=== PATIENT | male | born 1985 | race Caucasian/White ===

== ENCOUNTER 2017-08-31 16:20 | Emergency (ER) | payer BC, SELFPAY ==
--- NOTE | 2017-08-31 16:38 | XR_ITS ---
XR hand RT min 3V HISTORY: Posttraumatic pain ITS.REASON: FELL OFF LADDER ORDERING PHYSICIAN: VIOLETA Guillen PATIENT AGE: 31 years COMPARISON: None FINDINGS: No fracture or dislocation. No lytic or blastic change. There is normal mineralization.. The joint spaces are well-preserved. No significant degenerative/arthritic changes. No erosive changes evident.. IMPRESSION: Negative, no acute finding
[2017-08-31 17:49] VITALS: BP 147/103; PULSE 72; RESP 18; TEMP 36.9; O2SAT 99; BMI 26.6
--- NOTE | 2017-08-31 18:01 | HMH.EDUTC ---
[facility] Disposition Clinical Impression: Contusion of right hand Qualifiers: Encounter type: initial encounter Qualified Code(s): S60.221A - Contusion of right hand, initial encounter Disposition: Home, Self-Care Condition on Discharge: Good Instructions: DI for Hand Injury Prescriptions: Naproxen [Naprosyn 500mg tablet] 500 mg PO BID #20 tab Forms: Work/School Release Time of Disposition: 18:06 Medical Decision Making - Medical Records Medical records reviewed: Yes: I reviewed the patient's medical records. Vital Signs: 08/31/17 17:49 Temperature 98.4 F Temperature Source Temporal Artery Scan Pulse Rate [Left Brachial] 72 Respiratory Rate 18 Blood Pressure [Left Arm] 147/103 Blood Pressure Mean [Left Arm] 117 Blood Pressure Source [Left Arm] Automatic Cuff Blood Pressure Position [Left Arm] Sitting 02 Sat by Pulse Oximetry 99 Oxygen Delivery Method Room Air - Radiology Data #1 Image(s): Hand Image Reviewed: Yes I have reviewed radiologist's interpretation Preliminary Findings: No Fracture Seen - Asim Inquiry Pt receiving controlled substance: No [facility] HPI - General Stated complaint: AO 1000 Right Hand Injury Time Seen by Provider: 08/31/17 17:55 Mode of Arrival: Ambulatory Source of Information: Patient Limitations: No Limitations Description of Symptoms (Recalled from Triage Doc. by RN): C/O RT HAND PAIN AND SWELLING AFTER FALLING OFF LADDER AT 1000 THIS AM HEENT Symptoms (Recalled from RN notes): No Resp Symptoms (Recalled from RN notes): No Skin Symptoms (Recalled from RN notes): No MS Symptoms (Recalled from RN notes): Yes (RT HAND PAIN AND SWELLING) Functional Status (Recalled from RN notes): N/A - History of Present Illness Provider Complaint: Patient fell off a ladder this morning around 10 am. As he was falling he struck the dorsal aspect of his right hand against the deck railing. Has pain and swelling in the 3rd knuckle with painful ROM Onset (ago): hour(s) (8) Location: right, upper extremity Severity: moderate Severity scale (1-10): 5 Relieving factors: none Exacerbating factors: none Associated symptoms: denies other symptoms Treatments prior to arrival: none - Related Data Previous Rx's Medication Instructions Recorded Naproxen [Naprosyn 500mg tablet] 500 mg PO BID #20 tab 08/31/17 Allergies Allergy/AdvReac Type Severity Reaction Status Date / Time morphine [MORPHINE] Allergy Mild Verified 08/31/17 17:53 - Worker's Comp Is this a Worker's Comp case?: No [facility] History I have reviewed the patient's past medical history: Yes Medical History: Denies:: Diabetes Mellitus Type 1, Diabetes Mellitus Type 2 Laterality Cases: Bilateral: Tonsillectomy Amputation: No Fractures: No - *Social History Smoking Status: Never smoker Alcohol Intake: never - Psychiatric History Expresses thoughts of harming self/others: None Suicide Plan Description: No Plan ROS Obtained: Yes All systems reviewed & no additional complaints - Musculoskeletal Musculoskeletal: Reports as per HPI, Reports joint pain Physical Exam - General General appearance: alert, in no apparent distress - Head Head exam: atraumatic, normocephalic - Eye Eye exam: Present: normal appearance, PERRL - ENT ENT exam: Present: normal exam - Neck Neck exam: Present: normal inspection - Chest Chest inspection: Present: normal inspection - Respiratory Respiratory exam: Present: normal lung sounds bilaterally, respiratory distress - Cardiovascular Cardiovascular exam: Present: regular rate, normal rhythm - Extremities Exam Extremities exam: Present: tenderness, joint swelling, other (right 3rd digit) - Neurological Exam Neurological exam: Present: alert, oriented X3
--- NOTE | 2017-08-31 18:05 | ED_ITS ---
[facility] Disposition Clinical Impression: Contusion of right hand Qualifiers: Encounter type: initial encounter Qualified Code(s): S60.221A - Contusion of right hand, initial encounter Disposition: Home, Self-Care Condition on Discharge: Good Instructions: DI for Hand Injury Prescriptions: Naproxen [Naprosyn 500mg tablet] 500 mg PO BID #20 tab Forms: Work/School Release Time of Disposition: 18:06 Medical Decision Making - Medical Records Medical records reviewed: Yes: I reviewed the patient's medical records. Vital Signs: 08/31/17 17:49 Temperature 98.4 F Temperature Source Temporal Artery Scan Pulse Rate [Left Brachial] 72 Respiratory Rate 18 Blood Pressure [Left Arm] 147/103 Blood Pressure Mean [Left Arm] 117 Blood Pressure Source [Left Arm] Automatic Cuff Blood Pressure Position [Left Arm] Sitting 02 Sat by Pulse Oximetry 99 Oxygen Delivery Method Room Air - Radiology Data #1 Image(s): Hand Image Reviewed: Yes I have reviewed radiologist's interpretation Preliminary Findings: No Fracture Seen - Asim Inquiry Pt receiving controlled substance: No [facility] HPI - General Stated complaint: AO 1000 Right Hand Injury Time Seen by Provider: 08/31/17 17:55 Mode of Arrival: Ambulatory Source of Information: Patient Limitations: No Limitations Description of Symptoms (Recalled from Triage Doc. by RN): C/O RT HAND PAIN AND SWELLING AFTER FALLING OFF LADDER AT 1000 THIS AM HEENT Symptoms (Recalled from RN notes): No Resp Symptoms (Recalled from RN notes): No Skin Symptoms (Recalled from RN notes): No MS Symptoms (Recalled from RN notes): Yes (RT HAND PAIN AND SWELLING) Functional Status (Recalled from RN notes): N/A - History of Present Illness Provider Complaint: Patient fell off a ladder this morning around 10 am. As he was falling he struck the dorsal aspect of his right hand against the deck railing. Has pain and swelling in the 3rd knuckle with painful ROM Onset (ago): hour(s) (8) Location: right, upper extremity Severity: moderate Severity scale (1-10): 5 Relieving factors: none Exacerbating factors: none Associated symptoms: denies other symptoms Treatments prior to arrival: none - Related Data Previous Rx's Medication Instructions Recorded Naproxen [Naprosyn 500mg tablet] 500 mg PO BID #20 tab 08/31/17 Allergies Allergy/AdvReac Type Severity Reaction Status Date / Time morphine [MORPHINE] Allergy Mild Verified 08/31/17 17:53 - Worker's Comp Is this a Worker's Comp case?: No [facility] History I have reviewed the patient's past medical history: Yes Medical History: Denies:: Diabetes Mellitus Type 1, Diabetes Mellitus Type 2 Laterality Cases: Bilateral: Tonsillectomy Amputation: No Fractures: No - *Social History Smoking Status: Never smoker Alcohol Intake: never - Psychiatric History Expresses thoughts of harming self/others: None Suicide Plan Description: No Plan ROS Obtained: Yes All systems reviewed & no additional complaints - Musculoskeletal Musculoskeletal: Reports as per HPI, Reports joint pain Physical Exam - General General appearance: alert, in no apparent distress - Head Head exam: atraumatic, normocephalic - Eye Eye exam: Present: normal appearance, PERRL - ENT ENT exam: Present: normal exam - Neck
[2017-08-31 18:32] VITALS: BP 147/103; PULSE 90; RESP 20; TEMP 36.9
== END 2017-08-31 18:32 | disposition home or self-care (01) ==
PROVIDERS: Emergency Provider Physician Assistant; Family Provider Family Medicine
DX: S60.221A Contusion of right hand, initial encounter (principal); W11.XXXA Fall on and from ladder, initial encounter
CPT/HCPCS: 73130; 99202

== ENCOUNTER 2018-01-13 20:34 | Emergency (ER) | payer BC, SELFPAY ==
[2018-01-13 20:35] VITALS: BP 145/58; PULSE 80; RESP 16; TEMP 36.8; O2SAT 96; BMI 26.6
--- NOTE | 2018-01-13 20:40 | CT_ITS ---
CT abdomen pelvis wo con CLINICAL INDICATION: Left flank pain, history kidney stones ITS.REASON: flank pain ORDERING PHYSICIAN: Anthony Arriaga MD PATIENT AGE: 32 years COMPARISON: 05/06/2017 TECHNIQUE: Axial images obtained with sagittal and one in the 22nd first use 21 Precontrast is a lucency with a and coronal reformats. All CT scans at the facility use one or more dose reduction, viz: automated exposure control; ma/kV adjustment per patient size (including targeted exams where dose is matched to indication; i.e. head); or iterative reconstruction technique. PROCEDURE: Oral Contrast: None IV Contrast: None . FINDINGS: Lung bases are clear. The liver, gallbladder, spleen, adrenal glands, and pancreas have an unremarkable unenhanced CT appearance. There are small bilateral renal calculi measuring 2 mm in the upper pole on the right and up to 4 mm in the mid polar region on the left. A small exophytic cyst projects off the lower pole the left kidney at 14 mm. No ureteral calculi evident. No hydronephrosis. No intestinal obstruction or free air. Unremarkable appendix. There is mild thickening of the wall of the ascending colon and rectosigmoid region. This may be due to nondistention versus mild colitis. There are a few diverticula evident but no evidence of diverticulitis. No acute bony anomalies. IMPRESSION: 1. Nonobstructing bilateral renal calculi. 2. Possible colitis
--- NOTE | 2018-01-13 20:40 | XR_ITS ---
XR chest 2V HISTORY: ITS.REASON: chest tightness ORDERING PHYSICIAN: Anthony Arriaga MD PATIENT AGE: 32 years COMPARISON: None FINDINGS: The cardiomediastinal silhouette and pulmonary vascularity are within normal limits. The lungs are clear without infiltrates, suspicious nodules, or pleural effusions. No acute bony abnormalities. IMPRESSION: Negative chest, no acute finding
[2018-01-13 20:51] LABS: Microscopic, Urine URINE MICROSCOPIC (MICROSCOPIC)
[2018-01-13 20:54] LABS: Basophils % 0.4 % (0.1-2.0); Eosinophils # 0.1 K/mm3 (0.0-0.4); Eosinophils % 2.1 % (0.1-12.0); Hematocrit 47.5 % (42.0-52.0); Hemoglobin 15.5 g/dL (14.1-18.0); Lymphocytes # 1.9 K/mm3 (0.7-4.5); Mean Corpuscular HGB Conc 32.6 g/dL (31.8-35.4); Mean Corpuscular Hemoglobin 28.3 pg (27.0-31.2); Mean Corpuscular Volume 86.8 fl (80-94); Mean Platelet Volume 9.8 fl (7.4-10.4); Monocytes # 0.3 K/mm3 (0.1-1.0); Monocytes % 5.9 % (1.7-9.3); Neutrophils # 3.3 K/mm3 (1.8-7.8); Neutrophils % 57.7 % (37.0-80.0); Platelet Count 237 K/mm3 (142-424); Red Blood Count 5.48 M/mm3 (4.60-6.20); Red Cell Distribution Width 12.8 % (11.5-17.5); White Blood Count 5.7 K/mm3 (4.8-10.8)
[2018-01-13 21:01] LABS: Appearance,Urine CLEAR (Clear); Bilirubin,Urine Negative (Negative); Blood, Urine Negative (Negative); Color,Urine YELLOW (Yellow); Glucose,Urine (UA) Negative (Negative); Ketones,Urine Negative (Negative); Leukocyte Esterase,Urine Negative (Negative); Nitrate,Urine Negative (Negative); Protein,Urine Negative (Negative); Specific Gravity, Urine <= 1.005 (1.005-1.030); Urobilinogen,Urine 0.2 EU/dl (0.2)
[2018-01-13 21:06] LABS: Anion Gap 11.7 mEq/L (5-15); Blood Urea Nitrogen 15 mg/dL (7-18); Calcium 8.9 mg/dL (8.5-10.1); Carbon Dioxide 29 mmol/L (21.0-32.0); Chloride 102 mmol/L (98-107); Creatinine Clearance Estimated 129 mL/min (0-300); Creatinine,Serum 1.19 mg/dL (0.70-1.30); Estimated Glomerular Filt Rate 70 ml/min (>60); GFR (African American) 85 ML/MIN (>60); Glucose 96 mg/dL (74-106); Potassium 3.7 mmoL/L (3.5-5.1); Sodium 139 mmol/L (136-145); Troponin I < 0.02 ng/ml (0.00-0.06)
[2018-01-13 21:34] LABS: Bacteria,Urine Trace /lpf
--- NOTE | 2018-01-13 21:58 | HMH.EDNVD ---
ED Disposition Clinical Impression: Colitis Disposition: Home, Self-Care Condition on Discharge: Good Instructions: DI for Colitis Additional Instructions: see pcp for follow up Prescriptions: predniSONE [Prednisone 20mg Tab] 20 mg PO BID #10 tab Referrals: Luke Villagran II [Primary Care Provider] - - Critical Care Critical Care Time: No Attestation: On 01/13/18, the high probability of a clinically significant, sudden or life threatening deterioration of the following system(s) required my full and direct attention, intervention and personal management. The time I documented below is in addition to time spent performing reported procedures but includes the following listed in this critical care notation. Medical Decision Making - Medical Records Medical records reviewed: Yes: I reviewed the patient's medical records. - Asim Inquiry Pt receiving controlled substance: No Vital Signs: 01/13/18 20:35 Temperature 98.2 F Temperature Source Oral Pulse Rate [Right Brachial] 80 Respiratory Rate 16 Blood Pressure [Right Arm] 145/58 Blood Pressure Mean [Right Arm] 87 02 Sat by Pulse Oximetry 96 - Lab Data Lab results reviewed: Yes: I reviewed the patient's lab results. Lab Results 01/13/18 20:42: WBC 5.7, RBC 5.48, Hgb 15.5, Hct 47.5, MCV 86.8, MCH 28.3, MCHC 32.6, RDW 12.8, Plt Count 237, MPV 9.8, Neut % (Auto) 57.7, Lymph % (Auto) 34.0, [place] % (Auto) 5.9, Eos % (Auto) 2.1, Baso % (Auto) 0.4, Neut # (Auto) 3.3, Lymph # (Auto) 1.9, [place] # (Auto) 0.3, Eos # (Auto) 0.1, Baso # (Auto) 0.0 01/13/18 20:42: Sodium 139, Potassium 3.7, Chloride 102, Carbon Dioxide 29, Anion Gap 11.7, BUN 15, Creatinine 1.19, Estimated Creat Clear 129, Estimated GFR 70, Est GFR ( Amer) 85, Glucose 96, Calcium 8.9, Troponin I < 0.02 01/13/18 20:45: Urine Color Yellow, Urine Appearance Clear, Urine pH 6.0, Ur Specific [place] <= 1.005, Urine Protein Negative, Urine Glucose (UA) Negative, Urine Ketones Negative, Urine Blood Negative, Urine Nitrate Negative, Urine Bilirubin Negative, Urine Urobilinogen 0.2, Ur Leukocyte Esterase Negative, Urine RBC None, Urine WBC None, Ur Squamous Epith Cells None, Urine Bacteria Trace Result diagrams: 01/13/18 20:42 01/13/18 20:42 Orders (Tests/Meds): ED MEDICATIONS Discontinued Medications Generic Name Dose Route Start Last Admin Trade Name Huong PRN Reason Stop Dose Admin Acetaminophen/Codeine Phosphate 1 shahnaz 01/13/18 21:55 Acetaminophen W/Codeine #3 Take Home Pack (6) PO 01/13/18 21:56 ONCE ONE Sodium Chloride 1,000 mls @ 999 mls/hr 01/13/18 20:45 01/13/18 20:49 Sod Chlor 0.9% 1000ml Bag IV 01/13/18 21:45 999 mls/hr .Q1H1M BRITTANI Administration Ketorolac Tromethamine 30 mg 01/13/18 20:40 01/13/18 20:49 Toradol 30mg/Ml Vial IV 01/13/18 20:41 30 mg ONCE ONE Administration Methylprednisolone Sodium Succinate 125 mg 01/13/18 21:55 Solu-Medrol 125mg/2ml Vial IV 01/13/18 21:56 ONCE ONE Ondansetron HCl 4 mg 01/13/18 20:40 01/13/18 20:49 Zofran 4mg/2ml Vial IV 01/13/18 20:41 4 mg ONCE ONE Administration ORDERS Category Date Time Status CT abdomen pelvis wo con Stat Cat Scan 01/13/18 20:40 Taken Chest XR 2 view (NOT portable) [XR chest 2V] Stat Exams 01/13/18 20:40 Taken ECG Request by /Nse Stat Y 01/13/18 20:40 Ordered - Radiology Data #1 Image(s): Chest Image Reviewed: Yes I reviewed the patient's radiology image Preliminary Findings: Normal/NAD - CT Data CT Scan: Abdomen, Pelvis Time Received: 22:[address] Reviewed: Yes: I have viewed the radiologist's interpretation Preliminary Findings: Abnormal (colitis) - ECG Data Tracing #1 I reviewed this ECG and interpreted as documented below: ECG normal with no acute: arrhythmias, ischemia, con
--- NOTE | 2018-01-13 22:01 | ED_ITS ---
ED Disposition Clinical Impression: Colitis Disposition: Home, Self-Care Condition on Discharge: Good Instructions: DI for Colitis Additional Instructions: see pcp for follow up Prescriptions: predniSONE [Prednisone 20mg Tab] 20 mg PO BID #10 tab Referrals: Luke Villagran II [Primary Care Provider] - - Critical Care Critical Care Time: No Attestation: On 01/13/18, the high probability of a clinically significant, sudden or life threatening deterioration of the following system(s) required my full and direct attention, intervention and personal management. The time I documented below is in addition to time spent performing reported procedures but includes the following listed in this critical care notation. Medical Decision Making - Medical Records Medical records reviewed: Yes: I reviewed the patient's medical records. - Asim Inquiry Pt receiving controlled substance: No Vital Signs: 01/13/18 20:35 Temperature 98.2 F Temperature Source Oral Pulse Rate [Right Brachial] 80 Respiratory Rate 16 Blood Pressure [Right Arm] 145/58 Blood Pressure Mean [Right Arm] 87 02 Sat by Pulse Oximetry 96 - Lab Data Lab results reviewed: Yes: I reviewed the patient's lab results. Lab Results 01/13/18 20:42: WBC 5.7, RBC 5.48, Hgb 15.5, Hct 47.5, MCV 86.8, MCH 28.3, MCHC 32.6, RDW 12.8, Plt Count 237, MPV 9.8, Neut % (Auto) 57.7, Lymph % (Auto) 34.0 , [place] % (Auto) 5.9, Eos % (Auto) 2.1, Baso % (Auto) 0.4, Neut # (Auto) 3.3, Lymph # (Auto) 1.9, [place] # (Auto) 0.3, Eos # (Auto) 0.1, Baso # (Auto) 0.0 01/13/18 20:42: Sodium 139, Potassium 3.7, Chloride 102, Carbon Dioxide 29, Anion Gap 11.7, BUN 15, Creatinine 1.19, Estimated Creat Clear 129, Estimated GFR 70, Est GFR ( Amer) 85, Glucose 96, Calcium 8.9, Troponin I < 0.02 01/13/18 20:45: Urine Color Yellow, Urine Appearance Clear, Urine pH 6.0, Ur Specific [place] <= 1.005, Urine Protein Negative, Urine Glucose (UA) Negative, Urine Ketones Negative, Urine Blood Negative, Urine Nitrate Negative, Urine Bilirubin Negative, Urine Urobilinogen 0.2, Ur Leukocyte Esterase Negative, Urine RBC None, Urine WBC None, Ur Squamous Epith Cells None, Urine Bacteria Trace Result diagrams: 01/13/18 20:42 01/13/18 20:42 Orders (Tests/Meds): ED MEDICATIONS Discontinued Medications Generic Name Dose Route Start Last Admin Trade Name Huong PRN Reason Stop Dose Admin Acetaminophen/Codeine Phosphate 1 shahnaz 01/13/18 21:55 Acetaminophen W/Codeine #3 Take Home Pack (6) PO 01/13/18 21:56 ONCE ONE Sodium Chloride 1,000 mls @ 999 mls/hr 01/13/18 20:45 01/13/18 20:49 Sod Chlor 0.9% 1000ml Bag IV 01/13/18 21:45 999 mls/hr .Q1H1M BRITTANI Administration Ketorolac Tromethamine 30 mg 01/13/18 20:40 01/13/18 20:49 Toradol 30mg/Ml Vial IV 01/13/18 20:41 30 mg ONCE ONE Administration Methylprednisolone Sodium Succinate 125 mg 01/13/18 21:55 Solu-Medrol 125mg/2ml Vial IV 01/13/18 21:56 ONCE ONE Ondansetron HCl 4 mg 01/13/18 20:40 01/13/18 20:49 Zofran 4mg/2ml Vial IV 01/13/18 20:41 4 mg ONC
[2018-01-13 22:11] VITALS: BP 143/89; PULSE 69; RESP 20; TEMP 37; O2SAT 100
[2018-01-13 22:17] LABS: C-Reactive Protein < 0.2 mg/L (0.0-0.9)
[2018-01-13 22:47] LABS: Erythrocyte Sedimentation Rate 8 mm/hr (0-15)
== END 2018-01-13 22:12 | disposition home or self-care (01) ==
PROVIDERS: Emergency Provider Emergency Medicine; Family Provider Family Medicine; PCP Family Medicine
DX: K51.50 Left sided colitis without complications (principal)
CPT/HCPCS: 71046; 74176; 80048; 81001; 84484; 85025; 85651; 86140; 93005; 96365; 96375; 99283; J2405

== ENCOUNTER 2020-03-06 02:03 | Emergency (ER) | payer BC, SELFPAY ==
[2020-03-06 02:07] VITALS: BP 162/114; PULSE 109; RESP 18; TEMP 36.8; O2SAT 99; BMI 26.6
--- NOTE | 2020-03-06 02:34 | PC.NURSE ---
oral contrast completed. rad notified
[2020-03-06 02:38] LABS: Basophils # 0.1 K/mm3 (0-0.2); Basophils % 0.6 % (0.1-2.0); Eosinophils # 0.3 K/mm3 (0.0-0.4); Eosinophils % 3.4 % (0.1-12.0); Hematocrit 46.1 % (42.0-52.0); Hemoglobin 16.3 g/dL (14.1-18.0); Lymphocytes # 2.9 K/mm3 (0.7-4.5); Lymphocytes % 39.1 % (10-50); Mean Corpuscular HGB Conc 35.3 g/dL (31.8-35.4); Mean Corpuscular Hemoglobin 30.8 pg (27.0-31.2); Mean Corpuscular Volume 87.3 fl (80-94); Mean Platelet Volume 9.9 fl (7.4-10.4); Monocytes # 0.4 K/mm3 (0.1-1.0); Monocytes % 5.3 % (1.7-9.3); Neutrophils # 3.8 K/mm3 (1.8-7.8); Neutrophils % 51.5 % (37.0-80.0); Platelet Count 272 K/mm3 (142-424); Red Blood Count 5.28 M/mm3 (4.60-6.20); White Blood Count 7.3 K/mm3 (4.8-10.8)
[2020-03-06 02:42] LABS: Alanine Aminotransferase 41 U/L (12-78); Albumin Level 4.5 g/dl (3.5-5.0); Albumin/Globulin Ratio 1.4 (1.1-1.8); Alkaline Phosphatase 96 U/L (38-126); Amylase 72 U/L (30-110); Anion Gap 14.1 mEq/L (5-15); Aspartate Amino Transferase 41 U/L (17-59); Bilirubin,Total 0.4 mg/dl (0.2-1.3); Blood Urea Nitrogen 13 mg/dl (9-20); Calcium 9.6 mg/dl (8.4-10.2); Carbon Dioxide 30 mmol/L (22.0-30.0); Chloride 98 mmol/L (98-107); Creatinine Clearance Estimated 151 mL/min (50-200); Estimated Glomerular Filt Rate 85 ml/min (>60); GFR (African American) 102 ML/MIN (>60); Globulin 3.3 g/dL (1.3-3.2); Glucose 116 mg/dl (74-100); Lipase 147 U/L (23-300); Potassium 4.1 mmoL/L (3.5-5.1); Sodium 138 mmol/L (136-145); Total Protein,Serum 7.8 g/dl (6.3-8.2)
[2020-03-06 02:45] VITALS: BP 150/74; PULSE 71; RESP 19; O2SAT 98
[2020-03-06 02:48] LABS: C-Reactive Protein 1.8 mg/L (0-4)
[2020-03-06 03:04] LABS: Erythrocyte Sedimentation Rate 1 mm/hr (0-15)
[2020-03-06 03:25] VITALS: BP 131/73; PULSE 74; RESP 15; O2SAT 96
--- NOTE | 2020-03-06 03:31 | CT_ITS ---
PROCEDURE: CT ABDOMEN PELVIS W CON CLINICAL INDICATION: abd pain and nausea with diarrhea COMPARISON: CT ABDW CT abdomen w con from 04/23/2018 TECHNIQUE: IV Contrast: 75ML OPTIRAY 350 Oral Contrast 20ml Gastroview Axial images obtained with sagittal and coronal reformats. All CT scans at the facility use one or more dose reduction, viz: automated exposure control, ma/kV adjustment per patient size (including targeted exams where dose is matched to indication, i.e. head), or iterative reconstruction technique. FINDINGS: Lower thorax: The lower lung carrasco are clear and there is no pleural fluid. ABDOMEN: Liver: No masses or biliary dilatation. Gallbladder: The gallbladder is partially contracted but there are no obvious gallstones or sludge. Pancreas: No masses or peripancreatic fluid collections. Spleen: unremarkable Adrenals: unremarkable Kidneys/ureters: The kidneys are normal in size and show symmetrical function. There is a small nonobstructing calculus upper pole left kidney. There is a tiny benign-appearing cortical cyst lower pole left kidney. ABDOMEN & PELVIS: Stomach bowel: The stomach is prominently distended with ingested food particles and air. The duodenal sweep is normal. The contrast filled loops of small bowel appear normal. The appendix is well-visualized and is partially air-filled. There is a moderate amount stool and gas seen throughout the colon there is minimal scattered diverticulosis of the lower descending and sigmoid colon but there is no diverticulitis. Peritoneum: No abnormal fluid collections. No obvious inflammatory changes. No free air. Lymph nodes: No enlarged lymph nodes apparent. Vasculature: No evidence of abdominal aortic aneurysm. No retroperitoneal hemorrhage evident. Bones: No acute fracture PELVIS: Reproductive: unremarkable Bladder: The urinary bladder is decompressed, the prostate is normal. Appendix: Normal IMPRESSION: No acute abdominal or pelvic pathology identified, mild diffuse diverticulosis lower descending and sigmoid colon without diverticulitis Dictated by: Dr. Raymundo Bermudez MD 03/06/2020 10:23 Dr. Raymundo Bermudez MD in [place] 03/06/2020 10:23
--- NOTE | 2020-03-06 03:47 | PC.NURSE ---
to ct at this time
[2020-03-06 03:48] LABS: Microscopic, Urine URINE MICROSCOPIC (MICROSCOPIC)
[2020-03-06 03:50] LABS: Appearance,Urine CLEAR (Clear); Bilirubin,Urine Negative (Negative); Blood, Urine Negative (Negative); Color,Urine YELLOW (Yellow); Glucose,Urine (UA) Negative (Negative); Ketones,Urine Negative (Negative); Leukocyte Esterase,Urine Negative (Negative); Nitrate,Urine Negative (Negative); Protein,Urine Negative (Negative); Specific Gravity, Urine >= 1.030 (1.005-1.030); Urobilinogen,Urine 0.2 EU/dl (0.2)
[2020-03-06 04:08] VITALS: BP 143/97; PULSE 83; RESP 19; O2SAT 98
[2020-03-06 04:12] LABS: Amorphous Sediment,Urine Trace /lpf
--- NOTE | 2020-03-06 04:23 | HMH.EDNVD ---
ED Disposition Clinical Impression: Abdominal pain Qualifiers: Abdominal location: generalized Qualified Code(s): R10.84 - Generalized abdominal pain Disposition: Home, Self-Care Condition on Discharge: Good Instructions: DI for Acute Abdomen Additional Instructions: call pcp for follow up Referrals: Luke Villagran II [Primary Care Provider] - - Critical Care Critical Care Time: No Attestation: On 03/06/20, the high probability of a clinically significant, sudden or life threatening deterioration of the following system(s) required my full and direct attention, intervention and personal management. The time I documented below is in addition to time spent performing reported procedures but includes the following listed in this critical care notation. Medical Decision Making - Medical Records Medical records reviewed: Yes: I reviewed the patient's medical records. - Asim Inquiry Pt receiving controlled substance: No Vital Signs: 03/06/20 02:07 03/06/20 02:45 03/06/20 03:25 Temperature 98.3 F Temperature Source Oral Pulse Rate [Left] 109 H 71 74 Respiratory Rate 18 19 15 Blood Pressure [Right Arm] 162/114 H 150/74 H 131/73 Blood Pressure Mean [Right Arm] 130 99 92 Blood Pressure Source [Right Arm] Automatic Cuff Automatic Cuff Blood Pressure Position [Right Arm] Supine Sitting Sitting 02 Sat by Pulse Oximetry 99 98 96 Oxygen Delivery Method Room Air 03/06/20 04:08 03/06/20 04:48 Temperature 98.2 F Temperature Source Oral Pulse Rate [Left] 83 89 Respiratory Rate 19 18 Blood Pressure [Right Arm] 143/97 H 131/93 H Blood Pressure Mean [Right Arm] 112 105 Blood Pressure Source [Right Arm] Blood Pressure Position [Right Arm] 02 Sat by Pulse Oximetry 98 96 Oxygen Delivery Method Room Air Room Air - Lab Data Lab results reviewed: Yes: I reviewed the patient's lab results. Lab Results 03/06/20 02:14: WBC 7.3, RBC 5.28, Hgb 16.3, Hct 46.1, MCV 87.3, MCH 30.8, MCHC 35.3, RDW 13.0, Plt Count 272, MPV 9.9, Neut % (Auto) 51.5, Lymph % (Auto) 39.1, [place] % (Auto) 5.3, Eos % (Auto) 3.4, Baso % (Auto) 0.6, Neut # (Auto) 3.8, Lymph # (Auto) 2.9, [place] # (Auto) 0.4, Eos # (Auto) 0.3, Baso # (Auto) 0.1, ESR 1 03/06/20 02:14: Sodium 138, Potassium 4.1, Chloride 98, Carbon Dioxide 30, Anion Gap 14.1, BUN 13, Creatinine 1.00, Estimated Creat Clear 151, Estimated GFR 85, Est GFR ( Amer) 102, Glucose 116 H, Calcium 9.6, Total Bilirubin 0.4, AST 41, ALT 41, Alkaline Phosphatase 96, C-Reactive Protein 1.8, Total Protein 7.8, Albumin 4.5, Globulin 3.3 H, Albumin/Globulin Ratio 1.4, Amylase 72, Lipase 147 03/06/20 03:38: Urine Color Yellow, Urine Appearance Clear, Urine pH 6.0, Ur Specific Emerson >= 1.030, Urine Protein Negative, Urine Glucose (UA) Negative, Urine Ketones Negative, Urine Blood Negative, Urine Nitrate Negative, Urine Bilirubin Negative, Urine Urobilinogen 0.2, Ur Leukocyte Esterase Negative, Amorphous Sediment Trace Result diagrams: 03/06/20 02:14 03/06/20 02:14 Orders (Tests/Meds): ED MEDICATIONS Generic Name Dose Route Start Last Admin Trade Name Freq PRN Reason Stop Dose Admin Sodium Chloride 1,000 mls @ 999 mls/hr 03/06/20 02:45 03/06/20 02:36 Sod Chlor 0.9% 1000ml Bag IV 03/06/20 03:45 999 mls/hr .Q1H1M BRITTANI Administration Sodium Chloride 8 ml 03/06/20 04:39 Sodium Chloride 0.9% 10ml Vial IV 04/05/20 04:38 NEEDED PRN dilute pepcid Sodium Chloride 8 ml 03/06/20 04:40 Sodium Chloride 0.9% 10ml Vial IV 04/05/20 04:39 NEEDED PRN dilute pepcid Discontinued Medications Generic Name Dose Route Start Last Admin Trade Name Freq PRN Reason Stop Dose Admin Diatrizoate Meglum/Diatrizoate Sod 30 ml 03/06/20 02:33 03/06/20 02:34 Gastrografin 66%-10% 30ml PO 03/06/20 02:34 30 ml ONCE ONE Administration Famotidine 20 mg 03/06/20 04:39 Pepcid 20mg/2ml Vial IV 03/06/20 04:40 ONCE ONE Famotidine 20 mg 08
[2020-03-06 04:48] VITALS: BP 131/93; PULSE 89; RESP 18; TEMP 36.8; O2SAT 96
[2020-03-06 05:00] VITALS: BP 125/87; PULSE 73; RESP 15; TEMP 36.7; O2SAT 95
== END 2020-03-06 05:05 | disposition home or self-care (01) ==
PROVIDERS: Emergency Provider Emergency Medicine; PCP Family Medicine
DX: R10.84 Generalized abdominal pain (principal); K50.90 Crohn's disease, unspecified, without complications; Z90.09 Acquired absence of other part of head and neck
CPT/HCPCS: 74177; 80053; 81001; 82150; 83690; 85025; 85651; 86140; 96365; 96375; 99284; Q9967

== ENCOUNTER 2020-07-28 10:16 | Emergency (ER) | payer BC, SELFPAY ==
[2020-07-28 10:17] VITALS: BP 145/95; PULSE 95; RESP 14; TEMP 36.6; O2SAT 98; BMI 27.7
--- NOTE | 2020-07-28 10:43 | XR_ITS ---
PROCEDURE: XR CHEST 2V CLINICAL HISTORY: cough COMPARISON: CR CXR2V XR chest 2V from 01/13/2018 FINDINGS: The cardiomediastinal silhouette and pulmonary vascularity are within normal limits. The lungs are clear without infiltrates, suspicious nodules, or pleural effusions. No acute bony abnormalities. IMPRESSION: No acute findings. Dictated by: Nicholas Mas MD 07/28/2020 11:11 Nicholas Mas MD in [place] 07/28/2020 11:11
--- NOTE | 2020-07-28 11:02 | HMH.EDUTC ---
[facility] [place] Clinical Impression: Viral syndrome, Bronchitis, Exposure to COVID-19 virus Disposition: Home, Self-Care Condition on Discharge: Good Instructions: DI for COVID-19 (Suspected or Confirmed ), Preventing the Spread of Coronavirus Discharge Instructions Additional Instructions: Drink plenty of fluids. Take tylenol for pain or fever. Return if you begin to have difficulty breathing. Follow up with your regular doctor. GO TO THE ER FOR ANY WORSENING SYMPTOMS Prescriptions: Albuterol Sulfate [Albuterol Sulfate Hfa] 2 puffs IH Q6HP PRN 30 Days #1 [email or web address] PRN Reason: Shortness Of Breath Transmission Status: Received by [facility] Benzonatate [Tessalon Perle 100mg Cap] 100 mg PO TIDP PRN #30 cap PRN Reason: Cough Transmission Status: [facility] Azithromycin [Z-Ceasar 250mg Tab*] 250 mg PO UD DOSE PK #6 tab Transmission Status: [facility] Referrals: Luke Villagran II [Primary Care Provider] - Forms: Work/School Release Time of Disposition: 11:05 Medical Decision Making - Medical Records Medical records reviewed: No: I reviewed the patient's medical records. - Asim Inquiry Pt receiving controlled substance: No Vital Signs: 07/28/20 10:17 07/28/20 11:11 Temperature 97.9 F 97.9 F Temperature Source Oral Oral Pulse Rate 95 H Pulse Rate [Right] 95 H Respiratory Rate 14 14 Blood Pressure 145/95 H Blood Pressure [Right Arm] 145/95 H Blood Pressure Mean [Right Arm] 111 02 Sat by Pulse Oximetry 98 - Lab Data Lab Results 07/28/20 11:27: Influenza Type A Ag Negative, Influenza Type B Ag Negative [facility] [place] - General Stated complaint: cough, chills, drainage, loss of taste Time Seen by Provider: 07/28/20 10:20 Mode of Arrival: Ambulatory Source of Information: Patient Description of Symptoms (Recalled from Triage Doc. by RN): pt c/o coughing, vomitting, chills X 3 days HEENT Symptoms (Recalled from RN notes): Yes Resp Symptoms (Recalled from RN notes): Yes Skin Symptoms (Recalled from RN notes): No MS Symptoms (Recalled from RN notes): No Functional Status (Recalled from RN notes): wnl - History of Present Illness Provider Complaint: He states that for the past 2 days he has had cough, body aches, feeling very bad, and low grade fever. - Related Data Home Medications Medication Instructions Recorded Confirmed Omeprazole Magnesium [Prilosec Otc 20 mg PO DAILY 03/06/20 03/06/20 20mg Tab] Previous Rx's Medication Instructions Recorded Albuterol Sulfate [Albuterol 2 puffs IH Q6HP PRN 30 Days #1 07/28/20 Sulfate Hfa] hfa.aer.ad Azithromycin [Z-Ceasar 250mg Tab*] 250 mg PO UD DOSE PK #6 tab 07/28/20 Benzonatate [Tessalon Perle 100mg 100 mg PO TIDP PRN #30 cap 07/28/20 Cap] Allergies Allergy/AdvReac Type Severity Reaction Status Date / Time morphine [MORPHINE] Allergy Mild Verified 07/28/20 10:43 - Worker's Comp Is this a Worker's Comp case?: No Is this an H Worker's Comp?: No Is this a [place] Worker's Comp?: No [facility] History - Hepatitis A Screen Drug use history?: No High risk sexual behaviors?: No History of sexually transmitted infection?: No Currently employed?: No Childcare worker?: No Do you have indoor plumbing?: Yes Do you have electricity?: Yes Attestation statement:: This patient has been screened for Hepatitis A risk factors. I have reviewed the patient's past medical history: Yes Medical History: Denies:: Cancer, Diabetes Mellitus Type 1, Diabetes Mellitus Type 2, Internal Pacemaker, MRSA Other Medical History: Reports: Other (Crohn's disease) Laterality Cases: Bilateral: Tonsillectomy, Other Other Surgeries: No: Pacemaker Amputation: No Fractures: No - Social History Smoking Status: Never smoker Tobacco Type: smokeless tobacco # Packs/Day (cigarettes): 0 Alcohol Intake: never Occupational Status: unemployed Housing: house Household Members:
[2020-07-28 11:11] VITALS: BP 145/95; PULSE 95; RESP 14; TEMP 36.6; O2SAT 98
[2020-07-28 11:29] LABS: UTC Influenza A Antigen Negative (Negative); UTC Influenza B Antigen Negative (Negative)
--- NOTE | 2020-07-28 16:54 | PC.NURSE ---
unable to reach patient for positive covid results
--- NOTE | 2020-07-28 21:02 | PC.NURSE ---
PATIENT NOTIFIED OF POSITIVE COVID RESULTS
== END 2020-07-28 11:14 | disposition home or self-care (01) ==
PROVIDERS: Emergency Provider Nurse Practitioner Family; PCP Family Medicine
DX: U07.1 COVID-19 (principal); Z88.5 Allergy status to narcotic agent
CPT/HCPCS: 71046; 87804; 99202; G0463; U0003

== ENCOUNTER 2020-09-14 20:18 | Emergency (ER) | payer BC, SELFPAY ==
--- NOTE | 2020-09-14 20:25 | XR_ITS ---
PROCEDURE: XR HAND RT MIN 3V CLINICAL INDICATION: FALL Posttraumatic pain COMPARISON: CR [id number] XR hand RT min 3V from 08/31/2017 FINDINGS: No fracture or dislocation. No lytic or blastic change. There is normal mineralization. The joint spaces are well-preserved. No significant degenerative/arthritic changes. No erosive changes evident. Other findings:None. IMPRESSION: No acute findings. Dictated by: Nicholas Mas MD 09/15/2020 05:06 Nicholas Mas MD in [place] 09/15/2020 05:06
[2020-09-14 20:31] VITALS: BP 194/110; RESP 16; TEMP 36.6; O2SAT 99; BMI 27.7
--- NOTE | 2020-09-14 20:36 | HMH.EDUTC ---
[facility] [place] Clinical Impression: Finger sprain Qualifiers: Encounter type: initial encounter Finger: middle finger Sprain of finger site: unspecified site Laterality: right Qualified Code(s): S63.612A - Unspecified sprain of right middle finger, initial encounter Disposition: Home, Self-Care Condition on Discharge: Good Instructions: Finger Sprain, DI for Finger Sprain, How To Perform RICE (Rest, Ice, Compress, Elevate), How to Timo Tape Additional Instructions: *RICE, Rest the extremity, Ice 15-20 minutes 3-4 times daily, Compress- wear the lee wrap as discussed as much as possible to help reduce swelling and pain, Elevate the extremity when at rest *Lee wrap/finger splint/timo tape is for support and help control swelling, use it except in the shower. Be sure that is not to tight but not to loose either *Elevate when resting *Ibuprofen every 6-8 hours as needed for pain an inflammation as directed on package. If need something more can take Tylenol in between doses of Ibuprofen to help Immediately follow up with your family doctor for new or worsening of symptoms, or no noticeable improvement over the next 3-5 days Call back to the [facility] tomorrow for the official Radiology reading of your xray Return if needed Follow up with your Family doctor for re evaluation of your blood pressure where it was elevated in the [facility] Straight to ER if any life threatening symptoms Referrals: PCP,No [Primary Care Provider] - As needed Dong Mace MD [Staff Physician] - Time of Disposition: 20:46 Medical Decision Making - Asim Inquiry Pt receiving controlled substance: No Asim was queried for this patient: No Vital Signs: 09/14/20 20:31 Temperature 98 F Temperature Source Tympanic Respiratory Rate 16 Blood Pressure [Right Arm] 194/110 H Blood Pressure Mean [Right Arm] 138 Blood Pressure Source [Right Arm] Automatic Cuff Blood Pressure Position [Right Arm] Sitting 02 Sat by Pulse Oximetry 99 Oxygen Delivery Method Room Air Orders (Tests/Meds): ORDERS Category Date Time Status XR hand RT min 3V Stat Exams 09/14/20 20:25 Ordered - Radiology Data #1 Image(s): Hand Image Reviewed: Yes I reviewed the patient's radiology image Preliminary Findings: No Fracture Seen Will splint finger and timo tape and have him call back for official reading of his xray Medical Decision Narrative: Discussed elevated blood pressure with patient and he said PCP has been watching it Patient states that he is not having any chest pain, no headache, no blurry vision and would follow up with PCP tomorrow for further evaluation [facility] [place] HPI - General Stated complaint: MICHEL Darby fell off roof 8ft injured R Hand Time Seen by Provider: 09/14/20 20:36 Mode of Arrival: Ambulatory Source of Information: Patient Limitations: No Limitations Description of Symptoms (Recalled from Triage Doc. by RN): PT FELL ON A PILE OF CINDER BLOCKS OFF A ROOF ON HIS RIGHT HAND INJURING HIS MIDDLE FINGER. IT IS SWOLLEN AND PAINFUL 5/10 HEENT Symptoms (Recalled from RN notes): No Resp Symptoms (Recalled from RN notes): No Skin Symptoms (Recalled from RN notes): No MS Symptoms (Recalled from RN notes): Yes (R HAND PAIN MOSTLY IN THE MIDDLE FINGER) Functional Status (Recalled from RN notes): NA - History of Present Illness Provider Complaint: Patient states that a couple days ago he was sliding off a roof and went to catch himself and hit his right middle finger on some cender blocks that was sitting there States that ever since he has been having some swelling and hurts when he bends it States that he is suppose to start a new job tomorrow and wanted to get it checked before he started that job - Related Data Home Medications Medication Instructions Recorded Confirmed Omeprazole Magnesium [Prilosec Otc 20 mg PO DAILY 03/06/20 03/06/20 20mg Tab] Previous Rx's Medication Instructions Recorded Albuterol Sulfate [Albuterol 2 puffs IH Q6HP OR
[2020-09-14 20:45] VITALS: BP 145/100; PULSE 106; RESP 16; TEMP 36.6
== END 2020-09-14 20:53 | disposition home or self-care (01) ==
PROVIDERS: Emergency Provider Nurse Practitioner
DX: S63.612A Unspecified sprain of right middle finger, initial encounter (principal); W17.89XA Other fall from one level to another, initial encounter; W22.8XXA Striking against or struck by other objects, initial encounter; Y92.89 Other specified places as the place of occurrence of the external cause; F17.290 Nicotine dependence, other tobacco product, uncomplicated; Z88.5 Allergy status to narcotic agent
CPT/HCPCS: 73130; 99202; G0463

== ENCOUNTER 2020-12-27 17:58 | Emergency (ER) | payer BC, SELFPAY ==
[2020-12-27 18:40] VITALS: BP 135/94; PULSE 78; RESP 20; TEMP 36.7; O2SAT 97; BMI 25.4
[2020-12-27 18:53] LABS: Apearance,Urine Clear (Clear); Color,Urine Dark Yellow (Yellow); Protein,Urine 1+ (Negative)
[2020-12-27 18:54] LABS: Bilirubin,Urine Negative (Negative); Blood, Urine Negative (Negative); Glucose,Urine (UA) Negative (Negative); Ketones,Urine Negative (Negative); UTC Leukocyte Esterase,Urine Negative (Negative); UTC Nitrate,Urine Negative (Negative); Urobilinogen,Urine 0.2 EU/dl (0.2)
--- NOTE | 2020-12-27 19:01 | HMH.EDUTC ---
[facility] [place] Disposition Clinical Impression: Flank pain Disposition: Still a Patient Condition on Discharge: Good Referrals: Luke Villagran II [Primary Care Provider] - Time of Disposition: 19:17 Medical Decision Making - Asim Inquiry Pt receiving controlled substance: No Asim was queried for this patient: No Vital Signs: 12/27/20 18:40 Temperature 98.1 F Temperature Source Oral Pulse Rate [Right Brachial] 78 Respiratory Rate 20 Blood Pressure [Right Arm] 135/94 H Blood Pressure Mean [Right Arm] 107 Blood Pressure Source [Right Arm] Automatic Cuff Blood Pressure Position [Right Arm] Sitting 02 Sat by Pulse Oximetry 97 Oxygen Delivery Method Room Air - Lab Data Lab results reviewed: Yes: I reviewed the patient's lab results. Lab Results 12/27/20 18:52: Urine Color Dark yellow, Urine Appearance Clear, Urine pH 7.0, Ur Specific [place] 1.020, Urine Protein 1+, Urine Glucose (UA) Negative, Urine Ketones Negative, Urine Blood Negative, Urine Nitrate Negative, Urine Bilirubin Negative, Urine Urobilinogen 0.2, Ur Leukocyte Esterase Negative Medical Decision Narrative: Patient reports that he is having pain in left flank area that radiates around to his groin and having difficulty urinating reports feels like something is blocking him and a vice States that he has history of Kidney Stone Reports history of back problems but this pain is different Discussed with patient and recommended transfer to ED for further evaluation and imaging and patient agreed Called ED and report given and patient was moved to room 10 [facility] [place] HPI - General Stated complaint: back pain radiating through side and groin Time Seen by Provider: 12/27/20 19:02 Mode of Arrival: Ambulatory Source of Information: Patient Limitations: No Limitations Description of Symptoms (Recalled from Triage Doc. by RN): PATIENT C/O LEFT FLANK PAIN THAT IS RADIATING TOWARD THE FRONT AND DOWN INTO HIS GROIN X 2 DAYS. ALSO C/O DIFFICULTY URINATING, FEELS LIKE SOMETHING IS BLOCKED HEENT Symptoms (Recalled from RN notes): No Resp Symptoms (Recalled from RN notes): No Skin Symptoms (Recalled from RN notes): No MS Symptoms (Recalled from RN notes): No Functional Status (Recalled from RN notes): WNL - History of Present Illness Provider Complaint: Patient state that he has a history of back problems State that he started having pain in his left flank area about 5 days ago and felt like when he would bend over he couldnt straighten up but noticed around 2 days ago pain started radiating around from his left flank area around to his groin and he was having hard time urinating States he had to push and push and then only going small amounts at a time like he was blocked states that he feels like there is a vice in there States that he has history of kidney stones but previously it was on his right side - Related Data Home Medications Medication Instructions Recorded Confirmed Omeprazole Magnesium [Prilosec Otc 20 mg PO DAILY 03/06/20 03/06/20 20mg Tab] Previous Rx's Medication Instructions Recorded Albuterol Sulfate [Albuterol 2 puffs IH Q6HP PRN 30 Days #1 07/28/20 Sulfate Hfa] hfa.aer.ad Azithromycin [Z-Ceasar 250mg Tab*] 250 mg PO UD DOSE PK #6 tab 07/28/20 Benzonatate [Tessalon Perle 100mg 100 mg PO TIDP PRN #30 cap 07/28/20 Cap] Allergies Allergy/AdvReac Type Severity Reaction Status Date / Time morphine [MORPHINE] Allergy Mild Verified 09/14/20 20:36 - Worker's Comp Is this a Worker's Comp case?: No [facility] History - Hepatitis A Screen Drug use history?: No High risk sexual behaviors?: No History of sexually transmitted infection?: No Currently employed?: No Childcare worker?: No Do you have indoor plumbing?: Yes Do you have electricity?: Yes Attestation statement:: This patient has been screened for Hepatitis A risk factors. I have reviewed the patient's past medical history: Yes Medical History: Denies:: Cancer,
--- NOTE | 2020-12-27 19:05 | PC.NURSE ---
PATIENT SENT TO ER PER Andre MOORE APRN. REPORT GIVEN TO Ryanne CHI RN
--- NOTE | 2020-12-27 19:07 | CT_ITS ---
PROCEDURE INFORMATION: Exam: CT Abdomen And Pelvis Without Contrast Exam date and time: 12/27/2020 7:07 PM Age: 35 years old Clinical indication: Abdominal pain; Patient HX: Left flank pain, HX of kidney stones. ; Additional info: Left flank pain, HX of stones TECHNIQUE: Imaging protocol: Computed tomography of the abdomen and pelvis without contrast. Radiation optimization: All CT scans at this facility use at least one of these dose optimization techniques: automated exposure control; mA and/or kV adjustment per patient size (includes targeted exams where dose is matched to clinical indication); or iterative reconstruction. COMPARISON: CT ABDOMEN PELVIS W CON 03/06/2020 3:52 AM FINDINGS: Liver: Hepatic steatosis. Gallbladder and bile ducts: Normal. No calcified stones. No ductal dilation. Pancreas: Normal. No ductal dilation. Spleen: Normal. No splenomegaly. Adrenal glands: Normal. No mass. Kidneys and ureters: There is minimal bilateral nephrolithiasis. Inferior left renal cyst measures 1 cm. No hydronephrosis or hydroureter. Stomach and bowel: Regions of mild colonic thickening secondary to under distention. There are regions of colonic and small bowel intramural fat deposition likely secondary to previous inflammatory change. Appendix: No evidence of appendicitis. Intraperitoneal space: Unremarkable. No free air. No significant fluid collection. Vasculature: There are phleboliths within the pelvis. Lymph nodes: Unremarkable. No enlarged lymph nodes. Urinary bladder: Urinary bladder is under distended. Reproductive: Unremarkable as visualized. Bones/joints: Unremarkable. No acute fracture. Soft tissues: Small fat containing umbilical hernia. IMPRESSION: No obstructive uropathy or other acute process. COMMENTS: Consistent with the [employer]'s Incidental Findings Committee white paper (J Am Jenniffer Radiol 2018): Any incidental renal lesion less than 1 cm or classified as too small to characterize, or any incidental cystic renal lesion characterized as simple-appearing, is likely benign. No follow-up imaging is recommended for these lesions per consensus recommendations based on imaging criteria.
--- NOTE | 2020-12-27 19:08 | HMH.EDGENADL ---
ED Disposition Clinical Impression: Flank pain, Kidney stone Disposition: Home, Self-Care Condition on Discharge: Fair Instructions: DI for Kidney Stones, DI for Low Back Pain Additional Instructions: You have been evaluated for back pain. You have a few kidney stones, none are obstructing. No signs of infection. Please continue taking anti-inflammatories. Follow-up with your primary care doctor in 24 to 48 hours. Return to the emergency department for any new or worsening symptoms. Prescriptions: Ibuprofen [Ibuprofen 600mg Tablet] 600 mg PO Q8 #30 tab Transmission Status: Pending to [facility] Referrals: Luke Villagran II [Primary Care Provider] - Time of Disposition: 20:09 - Critical Care Critical Care Time: No Attestation: On 12/27/20, the high probability of a clinically significant, sudden or life threatening deterioration of the following system(s) required my full and direct attention, intervention and personal management. The time I documented below is in addition to time spent performing reported procedures but includes the following listed in this critical care notation. Medical Decision Making - Medical Records Medical records reviewed: Yes: I reviewed the patient's medical records. - Asim Inquiry Pt receiving controlled substance: No Vital Signs: 12/27/20 18:40 12/27/20 19:15 12/27/20 19:30 Temperature 98.1 F 98.2 F Temperature Source Oral Oral Pulse Rate 62 Pulse Rate [Right Brachial] 78 79 Respiratory Rate 20 17 Blood Pressure 123/90 Blood Pressure [Right Arm] 135/94 H 120/88 Blood Pressure Mean [Right Arm] 107 98 Blood Pressure Source [Right Arm] Automatic Cuff Automatic Cuff Blood Pressure Position [Right Arm] Sitting Supine 02 Sat by Pulse Oximetry 97 98 95 Oxygen Delivery Method Room Air Room Air 12/27/20 20:00 Temperature Temperature Source Pulse Rate 65 Pulse Rate [Right Brachial] Respiratory Rate Blood Pressure 133/96 H Blood Pressure [Right Arm] Blood Pressure Mean [Right Arm] Blood Pressure Source [Right Arm] Blood Pressure Position [Right Arm] 02 Sat by Pulse Oximetry 95 Oxygen Delivery Method - Lab Data Lab Results 12/27/20 18:52: Urine Color Dark yellow, Urine Appearance Clear, Urine pH 7.0, Ur Specific [place] 1.020, Urine Protein 1+, Urine Glucose (UA) Negative, Urine Ketones Negative, Urine Blood Negative, Urine Nitrate Negative, Urine Bilirubin Negative, Urine Urobilinogen 0.2, Ur Leukocyte Esterase Negative 12/27/20 19:15: WBC 5.9, RBC 5.54, Hgb 16.5, Hct 48.5, MCV 87.5, MCH 29.8, MCHC 34.1, RDW 13.4, Plt Count 240, MPV 10.4, Neut % (Auto) 60.9, Lymph % (Auto) 28.3, [place] % (Auto) 5.1, Eos % (Auto) 4.9, Baso % (Auto) 0.8, Neut # (Auto) 3.6, Lymph # (Auto) 1.7, [place] # (Auto) 0.3, Eos # (Auto) 0.3, Baso # (Auto) 0.1 12/27/20 19:15: Sodium 139, Potassium 4.3, Chloride 101, Carbon Dioxide 30, Anion Gap 12.3, BUN 15, Creatinine 1.10, Estimated Creat Clear 130, Estimated GFR 75, Est GFR ( Amer) 91, Glucose 102 H, Calcium 9.6, Total Bilirubin 0.6, AST 31, ALT 44, Alkaline Phosphatase 88, Total Protein 8.2, Albumin 4.9, Globulin 3.3 H, Albumin/Globulin Ratio 1.5 Result diagrams: 12/27/20 19:15 12/27/20 19:15 Orders (Tests/Meds): ED MEDICATIONS Generic Name Dose Route Start Last Admin Trade Name Freq PRN Reason Stop Dose Admin Sodium Chloride 1,000 mls @ 999 mls/hr 12/27/20 19:15 12/27/20 19:39 Sod Chlor 0.9% 1000ml Bag IV 12/27/20 20:15 999 mls/hr .Q1H1M BRITTANI Administration Discontinued Medications Generic Name Dose Route Start Last Admin Trade Name Freq PRN Reason Stop Dose Admin Ketorolac Tromethamine 15 mg 12/27/20 19:08 12/27/20 19:15 Ketorolac 30mg/Ml Vial IV 12/27/20 19:09 15 mg ONCE ONE Administration Ondansetron HCl 4 mg 12/27/20 19:41 12/27/20 19:42 Ondansetron 4mg/2ml Vial IV 12/27/20 19:42 4 mg ONCE ONE Administration Tamsulosin HCl 0.4 mg 12/27/20 1
[2020-12-27 19:15] VITALS: BP 120/88; PULSE 79; RESP 17; TEMP 36.8; O2SAT 98; BMI 25.4
[2020-12-27 19:24] LABS: Basophils # 0.1 K/mm3 (0-0.2); Basophils % 0.8 % (0.1-2.0); Eosinophils # 0.3 K/mm3 (0.0-0.4); Eosinophils % 4.9 % (0.1-12.0); Hematocrit 48.5 % (42.0-52.0); Hemoglobin 16.5 g/dL (14.1-18.0); Lymphocytes # 1.7 K/mm3 (0.7-4.5); Lymphocytes % 28.3 % (10-50); Mean Corpuscular HGB Conc 34.1 g/dL (31.8-35.4); Mean Corpuscular Hemoglobin 29.8 pg (27.0-31.2); Mean Corpuscular Volume 87.5 fl (80-94); Mean Platelet Volume 10.4 fl (7.4-10.4); Monocytes # 0.3 K/mm3 (0.1-1.0); Monocytes % 5.1 % (1.7-9.3); Neutrophils # 3.6 K/mm3 (1.8-7.8); Neutrophils % 60.9 % (37.0-80.0); Platelet Count 240 K/mm3 (142-424); Red Blood Count 5.54 M/mm3 (4.60-6.20); Red Cell Distribution Width 13.4 % (11.5-17.5); White Blood Count 5.9 K/mm3 (4.8-10.8)
[2020-12-27 19:30] VITALS: BP 123/90; PULSE 62; O2SAT 95
[2020-12-27 19:30] LABS: Chloride 101 mmol/L (98-107); Potassium 4.3 mmoL/L (3.5-5.1); Sodium 139 mmol/L (136-145)
[2020-12-27 19:33] LABS: Alanine Aminotransferase 44 U/L (12-78); Albumin Level 4.9 g/dl (3.5-5.0); Albumin/Globulin Ratio 1.5 (1.1-1.8); Alkaline Phosphatase 88 U/L (38-126); Anion Gap 12.3 mEq/L (5-15); Aspartate Amino Transferase 31 U/L (17-59); Bilirubin,Total 0.6 mg/dl (0.2-1.3); Blood Urea Nitrogen 15 mg/dl (9-20); Carbon Dioxide 30 mmol/L (22.0-30.0); Creatinine Clearance Estimated 130 mL/min (50-200); Estimated Glomerular Filt Rate 75 ml/min (>60); GFR (African American) 91 ML/MIN (>60); Globulin 3.3 g/dL (1.3-3.2); Total Protein,Serum 8.2 g/dl (6.3-8.2)
[2020-12-27 19:34] LABS: Calcium 9.6 mg/dl (8.4-10.2); Glucose 102 mg/dl (74-100)
[2020-12-27 20:00] VITALS: BP 133/96; PULSE 65; O2SAT 95
[2020-12-27 20:18] VITALS: BP 133/96; PULSE 72; RESP 16; TEMP 36.7; O2SAT 96
[2020-12-27 20:41] LABS: Microscopic, Urine URINE MICROSCOPIC (MICROSCOPIC)
[2020-12-27 20:42] LABS: Appearance,Urine CLEAR (Clear); Bilirubin,Urine Negative (Negative); Blood, Urine Negative (Negative); Color,Urine YELLOW (Yellow); Glucose,Urine (UA) Negative (Negative); Ketones,Urine Negative (Negative); Leukocyte Esterase,Urine Negative (Negative); Nitrate,Urine Negative (Negative); Protein,Urine 1+ (Negative); Urobilinogen,Urine 0.2 EU/dl (0.2)
[2020-12-27 20:57] LABS: Bacteria,Urine Trace /lpf; Mucus,Urine 1+ /lpf
== END 2020-12-27 20:45 | disposition home or self-care (01) ==
LOC: UTC 18:01 → ER 19:07
PROVIDERS: Nurse Practitioner; Emergency Provider Emergency Medicine; PCP Family Medicine
DX: N20.0 Calculus of kidney (principal); K50.90 Crohn's disease, unspecified, without complications
CPT/HCPCS: 74176; 80053; 81001; 81003; 85025; 96365; 96375; 99283; J2405

== ENCOUNTER 2021-09-30 17:40 | Observation (INO) | payer BC, SELFPAY ==
[2021-09-30 17:44] VITALS: BP 140/90; PULSE 96; RESP 18; TEMP 36.6; O2SAT 99; BMI 28.1
--- NOTE | 2021-09-30 17:45 | HMH.EDGENADL ---
ED Disposition Clinical Impression: Unstable angina Disposition: Admitted as Observation Condition on Discharge: Fair - Critical Care Critical Care Time: No Attestation: On , the high probability of a clinically significant, sudden or life threatening deterioration of the following system(s) required my full and direct attention, intervention and personal management. The time I documented below is in addition to time spent performing reported procedures but includes the following listed in this critical care notation. Medical Decision Making - Asim Inquiry Pt receiving controlled substance: No Asim was queried for this patient: No Vital Signs: 09/30/21 17:44 Temperature 97.8 F Temperature Source Oral Pulse Rate [Right Radial] 96 H Respiratory Rate 18 Blood Pressure [Right Arm] 140/90 Blood Pressure Mean [Right Arm] 106 Blood Pressure Source [Right Arm] Manual Cuff/ Auscultation Blood Pressure Position [Right Arm] Sitting 02 Sat by Pulse Oximetry 99 Oxygen Delivery Method Room Air - Lab Data Lab Results 09/30/21 18:08: WBC 5.9, RBC 5.25, Hgb 15.9, Hct 47.4, MCV 90.4, MCH 30.3, MCHC 33.5, RDW 13.4, Plt Count 284, MPV 11.4 H, Neut % (Auto) 53.5, Lymph % (Auto) 35.4, [place] % (Auto) 5.9, Eos % (Auto) 2.9, Baso % (Auto) 2.3 H, Neut # (Auto) 3.1, Lymph # (Auto) 2.1, [place] # (Auto) 0.4, Eos # (Auto) 0.2, Baso # (Auto) 0.1 09/30/21 18:08: Sodium 138, Potassium 4.1, Chloride 103, Carbon Dioxide 26, Anion Gap 13.1, BUN 19, Creatinine 1.00, Estimated Creat Clear 162, Estimated GFR 84, Est GFR ( Amer) 102, Glucose 124 H, Calcium 9.1, Troponin I < 0.01 09/30/21 18:57: SARS-CoV-2 (PCR) Not detected, Influenza A Untype (PCR) Not detected, Influenza Type B (PCR) Not detected Result diagrams: 09/30/21 18:08 09/30/21 18:08 Orders (Tests/Meds): ED MEDICATIONS Generic Name Dose Route Start Last Admin Trade Name Freq PRN Reason Stop Dose Admin Nitroglycerin 0.4 mg 09/30/21 18:04 Nitroglycerin 0.4mg Sl Tablet SL 10/01/21 18:04 Q5MINP PRN Chest Pain Nitroglycerin 1 gm 09/30/21 18:45 09/30/21 18:46 Nitroglycerin 1 Gm Ointment TD 10/30/21 18:44 1 gm Q6H BRITTANI Administration Sodium Chloride 10 ml 09/30/21 17:50 Sodium Chloride 0.9% 10ml Flush Syringe IV 10/30/21 17:49 NEEDED PRN Maintain IV Site Discontinued Medications Generic Name Dose Route Start Last Admin Trade Name Freq PRN Reason Stop Dose Admin Aspirin 324 mg 09/30/21 18:04 09/30/21 18:26 Aspirin 81mg Chewable Tablet PO 09/30/21 18:05 324 mg ONCE ONE Administration ORDERS Category Date Time Status XR chest portable Stat Exams 09/30/21 17:50 Taken Troponin I Q3H Lab 09/30/21 21:00 Ordered Troponin I Q3H Lab 10/01/21 00:00 Ordered - Radiology Data #1 Image(s): Chest Image Reviewed: Yes I reviewed the patient's radiology image Preliminary Findings: Normal/NAD - ECG Data Tracing #1 EKG interpreted by Dajuan Torres MD: Rhythm: sinus Rate: 96 [place]: normal Ectopy: none Conduction: normal ST Segment Changes: none T Wave Changes: none Q Waves: none No evidence of acute ischemia or injury Prior electrocardiagrams reviewed. No significant change from prior tracings. - Physician Consults Physician Consulted: [place] Time: 19:20 Reason -: Admission Comment/Response: Agrees to admit the patient to the hospital. We discussed the patient's clinical information, including history, exam, laboratory and radiology results and ED course. Per hospital procedure, I will write temporary bridge inpatient orders on the patient. Specific orders requested by the admitting physician: Telemetry. Serial cardiac enzymes. Continue Nitropaste. - Reevaluation(s) Time: 18:43 Reevaluation #1: Pain-free after 1 nitroglycerin - CARTER Score for Non-Stemi Age of Patient: 30-39 years old Heart Rate: 90-109 bpm Systolic Blood Pressure: 140-159 mmHg Serum Creatinine: 0.80-1.
--- NOTE | 2021-09-30 17:48 | ECG_ITS ---
APPROVED REPORT Exam: Resting ECG HR:96 bpm ECG Measurements Heart Rate 96 AXES MN 132 P 57 QRSd 79 QRS 49 QT 324 T 46 QTc 378 Conclusion SINUS RHYTHM NORMAL ECG UNCONFIRMED REPORT Electronically signed by : Edy Rubin MD 10/01/2021 13:51:06
--- NOTE | 2021-09-30 17:50 | XR_ITS ---
PROCEDURE INFORMATION: Exam: XR Chest Exam date and time: 09/30/2021 5:50 PM Age: 35 years old Clinical indication: Sternal or substernal pain; Additional info: Cp TECHNIQUE: Imaging protocol: XR of the chest. Views: 1 view. COMPARISON: CR XR CHEST 2V 07/28/2020 10:43 AM FINDINGS: Lungs: Unremarkable. No consolidation. Pleural spaces: Unremarkable. No pleural effusion. No pneumothorax. Heart/Mediastinum: Unremarkable. No cardiomegaly. Bones/joints: Unremarkable. IMPRESSION: No evidence of acute cardiopulmonary disease.
[2021-09-30 18:17] LABS: Basophils # 0.1 K/mm3 (0-0.2); Basophils % 2.3 % (0.1-2.0); Eosinophils # 0.2 K/mm3 (0.0-0.4); Eosinophils % 2.9 % (0.1-12.0); Hematocrit 47.4 % (42.0-52.0); Hemoglobin 15.9 g/dL (14.1-18.0); Lymphocytes # 2.1 K/mm3 (0.7-4.5); Lymphocytes % 35.4 % (10-50); Mean Corpuscular HGB Conc 33.5 g/dL (31.8-35.4); Mean Corpuscular Hemoglobin 30.3 pg (27.0-31.2); Mean Corpuscular Volume 90.4 fl (80-94); Mean Platelet Volume 11.4 fl (7.4-10.4); Monocytes # 0.4 K/mm3 (0.1-1.0); Monocytes % 5.9 % (1.7-9.3); Neutrophils # 3.1 K/mm3 (1.8-7.8); Neutrophils % 53.5 % (37.0-80.0); Platelet Count 284 K/mm3 (142-424); Red Blood Count 5.25 M/mm3 (4.60-6.20); Red Cell Distribution Width 13.4 % (11.5-17.5); White Blood Count 5.9 K/mm3 (4.8-10.8)
[2021-09-30 18:28] LABS: Anion Gap 13.1 mEq/L (5-15); Blood Urea Nitrogen 19 mg/dl (9-20); Calcium 9.1 mg/dl (8.4-10.2); Carbon Dioxide 26 mmol/L (22.0-30.0); Chloride 103 mmol/L (98-107); Creatinine Clearance Estimated 162 mL/min (50-200); Estimated Glomerular Filt Rate 84 ml/min (>60); GFR (African American) 102 ML/MIN (>60); Glucose 124 mg/dl (74-100); Potassium 4.1 mmoL/L (3.5-5.1); Sodium 138 mmol/L (136-145)
--- NOTE | 2021-09-30 18:35 | PC.NURSE ---
Pt in room with company(SO) ? on monitior and comfortable
[2021-09-30 18:43] LABS: Troponin I < 0.01 ng/ml (0.00-0.034)
[2021-09-30 19:01] LABS: Coronavirus 19, PCR Not Detected (NotDetected); Influenza A, PCR Not Detected (NotDetected); Influenza B, PCR Not Detected (NotDetected)
--- NOTE | 2021-09-30 19:10 | PC.NURSE ---
HUNTER TYSON speaking with Dr. Dang
--- NOTE | 2021-09-30 19:22 | PC.NURSE ---
Notified general warehouse associate that pt was being admitted and needed a bed assignment
[2021-09-30 19:38] VITALS: BMI 26.9
[2021-09-30 20:00] VITALS: BP 133/90; PULSE 71; RESP 16; TEMP 36.7; O2SAT 95
--- NOTE | 2021-09-30 20:52 | PC.NURSE ---
PT ARRIVED TO FLOOR VIA W/C FROM EDW/STAFF @ 2051
[2021-09-30 21:00] VITALS: BP 146/78; PULSE 88; RESP 17; TEMP 36.7; O2SAT 97
[2021-09-30 21:03] VITALS: PULSE 80
[2021-09-30 21:11] LABS: Troponin I < 0.01 ng/ml (0.00-0.034)
[2021-10-01] VITALS: BP 137/83; PULSE 70; PULSE 83; RESP 16; TEMP 36.4; O2SAT 96
[2021-10-01 00:50] LABS: Troponin I < 0.01 ng/ml (0.00-0.034)
[2021-10-01 04:00] VITALS: PULSE 85
[2021-10-01 08:00] VITALS: BP 129/85; PULSE 78; RESP 16; TEMP 36.3; O2SAT 95
--- NOTE | 2021-10-01 08:17 | HMH.HPDC ---
General - General Admission date:: 09/30/21 Discharge date: 10/01/21 *Admission Date: 09/30/21 *Chief complaint: Chest pain *History of present illness: 35-year-old male presented to the emergency department yesterday after having intermittent episodes of chest discomfort throughout the week. Patient describes a sensation of pressure and something being pushed through his chest with radiation of discomfort into the left arm. Sometimes this sensation is accompanied by nausea and on at least one occasion the patient had vomiting. The episode with vomiting was late at night. Episodes of discomfort had occurred at rest, generally late in the evening, and during the day with some activity such as yard work. He denies diaphoresis, shortness of breath, radiation of pain into the neck or back. Patient has a history of hypertension for which he previously took losartan with HCTZ but apparently in combination with an episode of dehydration this caused acute kidney injury and medicine was permanently discontinued. He has not been on antihypertensive since. Patient also discovered earlier this week during a routine visit with his primary care physician that he has high cholesterol and has started medication. Family history is unknown as he is adopted, has brothers and sisters which she has no contact with. Patient is not a cigarette smoker. He leads a rather active lifestyle. Past medical history is also significant for Fry's esophagus and a hiatal hernia. Patient's last EGD was 2014. Patient takes omeprazole daily and has heartburn on a daily basis. [facility] History I have reviewed the patient's past medical history: Yes Medical History: Reports:: Gastroesophageal Reflux Disease(GERD), Hyperlipidemia, Hypertension Denies:: Cancer, Diabetes Mellitus Type 1, Diabetes Mellitus Type 2, Internal Pacemaker, MRSA *Have you ever received a pneumonia vaccine?: No *Have you received a flu vaccine this season?: No Other Medical History: Reports: Other (Crohn's disease, Fry's esophagus) Laterality Cases: Bilateral: Tonsillectomy, Other Other Surgeries: Yes: Other (wisdom teeth). No: Pacemaker Amputation: No Fractures: No - *Social History Last grade of school completed: Some college Smoking Status: Never smoker Tobacco Type: smokeless tobacco # Packs/Day (cigarettes): 0 Alcohol Intake: never Alcohol Intake Frequency:: a few times a month *Occupational Status:: employed Housing: house Household Members: spouse, children *Travel in the last 8 weeks: None Family Hx:: Adopted Review of Systems - Review of Systems Review of systems:: pertinent systems reviewed and negative unless documented below Exam Vital signs and Labs for Last 24 Hours: Temp Pulse Resp BP Pulse Ox 97.5 F L 85 16 137/83 96 10/01/21 00:00 10/01/21 04:00 10/01/21 00:00 10/01/21 00:00 10/01/21 00:00 Laboratory Results - last 24 hr 09/30/21 18:08: WBC 5.9, RBC 5.25, Hgb 15.9, Hct 47.4, MCV 90.4, MCH 30.3, MCHC 33.5, RDW 13.4, Plt Count 284, MPV 11.4 H, Neut % (Auto) 53.5, Lymph % (Auto) 35.4, Shackelford % (Auto) 5.9, Eos % (Auto) 2.9, Baso % (Auto) 2.3 H, Neut # (Auto) 3.1, Lymph # (Auto) 2.1, Shackelford # (Auto) 0.4, Eos # (Auto) 0.2, Baso # (Auto) 0.1 09/30/21 18:08: Sodium 138, Potassium 4.1, Chloride 103, Carbon Dioxide 26, Anion Gap 13.1, BUN 19, Creatinine 1.00, Estimated Creat Clear 162, Estimated GFR 84, Est GFR ( Amer) 102, Glucose 124 H, Calcium 9.1, Troponin I < 0.01 09/30/21 18:57: SARS-CoV-2 (PCR) Not detected, Influenza A Untype (PCR) Not detected, Influenza Type B (PCR) Not detected 09/30/21 20:45: Troponin I < 0.01 10/01/21 00:20: Troponin I < 0.01 I & O for Last 24 hours: Intake & Output 09/28/21 09/29/21 09/30/21 10/01/21 11:59 11:59 11:59 12:59 Weight 239 lb 14.4 oz - Constitutional no acute distress - *Routine HEENT Exam Head: Present: normocephalic Eye: Present: EOMI, PERRL ENT: Present: mucous membranes moist - *Routin
== END 2021-10-01 10:05 | disposition home or self-care (01) ==
LOC: ER 19:20 → 2ND 20:56
PROVIDERS: Admitting Provider Family Medicine; Emergency Provider Emergency Medicine; PCP Family Medicine; Visit Provider Family Medicine
DX: I20.8 Other forms of angina pectoris (principal); R07.9 Chest pain, unspecified; K21.9 Gastro-esophageal reflux disease without esophagitis; I10 Essential (primary) hypertension; E78.5 Hyperlipidemia, unspecified; Z79.899 Other long term (current) drug therapy; K22.70 Barrett's esophagus without dysplasia; Z20.822 Contact with and (suspected) exposure to COVID-19
CPT/HCPCS: 36415; 71045; 80048; 84484; 85025; 93005; 99285; C9803; G0378; U0003; U0005

== ENCOUNTER 2022-04-09 07:09 | Emergency (ER) | payer BC, SELFPAY ==
[2022-04-09 07:10] VITALS: BP 123/90; PULSE 67; RESP 18; TEMP 36.4; O2SAT 100; BMI 28.1
[2022-04-09 07:30] VITALS: BP 129/84; PULSE 58; RESP 20; O2SAT 98
--- NOTE | 2022-04-09 07:40 | PC.NURSE ---
DR. MONTALVO AT BEDSIDE FOR EVALUATION
--- NOTE | 2022-04-09 07:41 | CT_ITS ---
FINAL REPORT TECHNIQUE: After the administration of oral and intravenous contrast, axial images were obtained through the abdomen and pelvis by computed tomography. The study was performed with techniques to keep radiation dose as low as reasonably achievable, (ALARA). Individual dose reduction techniques using automated exposure control or adjustment of mA and/or kV according to the patient's size were employed. CLINICAL HISTORY: abd pain, hx crohns COMPARISON: December 27, 2020 FINDINGS: Abdomen: The lung bases are clear. The liver has mild fatty infiltration. The gallbladder is contracted. The spleen, pancreas and adrenals appear unremarkable. The previously noted kidney stones are not well seen on today's exam. There is a 1.3 cm left renal cyst which appears stable. The aorta is normal in caliber. There is no free fluid or adenopathy. Pelvis: The appendix measures at the upper limits of normal with no surrounding inflammation. Scattered diverticula are seen in the sigmoid colon. The urinary bladder is unremarkable. There is no free fluid or adenopathy. IMPRESSION: Fatty liver. Scattered diverticulosis without evidence of diverticulitis. Reviewed, Interpreted and Dictated by Shyam Flores MD Transcribed by Sara Beatty Authenticated and [facility]
--- NOTE | 2022-04-09 07:45 | PC.NURSE ---
notified rad of CT order
[2022-04-09 07:46] LABS: Microscopic, Urine URINE MICROSCOPIC (MICROSCOPIC)
[2022-04-09 07:47] LABS: Appearance,Urine CLEAR (Clear); Bilirubin,Urine Negative (Negative); Blood, Urine Negative (Negative); Color,Urine YELLOW (Yellow); Glucose,Urine (UA) Negative (Negative); Ketones,Urine Negative (Negative); Leukocyte Esterase,Urine Negative (Negative); Nitrate,Urine Negative (Negative); Protein,Urine Negative (Negative); Urobilinogen,Urine 0.2 EU/dl (0.2)
--- NOTE | 2022-04-09 07:47 | PC.NURSE ---
PT UPDATED ON POC, NO NEEDS AT THIS TIME. CALL LIGHT WITHIN REACH
[2022-04-09 07:50] LABS: Basophils # 0.1 K/mm3 (0-0.2); Basophils % 1.8 % (0.1-2.0); Eosinophils # 0.2 K/mm3 (0.0-0.4); Hematocrit 45.2 % (42.0-52.0); Hemoglobin 15.1 g/dL (14.1-18.0); Lymphocytes # 2.3 K/mm3 (0.7-4.5); Lymphocytes % 39.5 % (10-50); Mean Corpuscular HGB Conc 33.3 g/dL (31.8-35.4); Mean Corpuscular Hemoglobin 29.7 pg (27.0-31.2); Mean Corpuscular Volume 89.2 fl (80-94); Mean Platelet Volume 11.4 fl (7.4-10.4); Monocytes # 0.4 K/mm3 (0.1-1.0); Monocytes % 6.1 % (1.7-9.3); Neutrophils # 2.9 K/mm3 (1.8-7.8); Neutrophils % 49.5 % (37.0-80.0); Platelet Count 257 K/mm3 (142-424); Red Blood Count 5.07 M/mm3 (4.60-6.20); Red Cell Distribution Width 13.3 % (11.5-17.5); White Blood Count 5.9 K/mm3 (4.8-10.8)
[2022-04-09 07:55] LABS: Alanine Aminotransferase 37 U/L (12-78); Albumin/Globulin Ratio 1.5 (1.1-1.8); Alkaline Phosphatase 92 U/L (38-126); Amylase 54 U/L (30-110); Anion Gap 14.2 mEq/L (5-15); Aspartate Amino Transferase 32 U/L (17-59); Blood Urea Nitrogen 14 mg/dl (9-20); Calcium 8.7 mg/dl (8.4-10.2); Carbon Dioxide 26 mmol/L (22.0-30.0); Chloride 102 mmol/L (98-107); Creatinine Clearance Estimated 161 mL/min (50-200); Estimated Glomerular Filt Rate 84 ml/min (>60); GFR (African American) 101 ML/MIN (>60); Globulin 2.7 g/dL (1.3-3.2); Glucose 106 mg/dl (74-100); Lipase 174 U/L (23-300); Potassium 4.2 mmoL/L (3.5-5.1); Sodium 138 mmol/L (136-145); Total Protein,Serum 6.7 g/dl (6.3-8.2)
[2022-04-09 07:57] LABS: Bilirubin,Total 0.1 mg/dl (0.2-1.3)
[2022-04-09 07:59] LABS: Squamous Epithelial Cell,Urine Occasional #/hpf (0-5)
[2022-04-09 08:00] VITALS: BP 126/86; PULSE 64; RESP 20; O2SAT 98
[2022-04-09 08:00] LABS: C-Reactive Protein 1.1 mg/L (0-4)
--- NOTE | 2022-04-09 08:01 | PC.NURSE ---
PT TO CT AT THIS TIME
--- NOTE | 2022-04-09 08:06 | HMH.EDGENADL ---
Discharge Plan Disposition Patient Disposition: Home, Self-Care Condition: Good Chief Complaint: Abdominal Pain Prescriptions Prescriptions: No Action omeprazole magnesium 20 MG tablet,delayed release (DR/EC) 20 mg PO DAILY bisoprolol fumarate 5 MG tablet 5 mg PO DAILY Referrals Follow up/Referrals: Provider,MD Keaton [Primary Care Provider] - See instructions Clinical Impressions Clinical Impression: Abdominal pain Instructions Patient Instructions: DI for Acute Abdominal Pain Discharge ED Provider: Arpan Fisher General Adult HPI General Chief complaint: Abdominal Pain Stated complaint: can't urinate,stomach pain Time Seen by Provider: 04/09/22 08:07 Mode of Arrival: Ambulatory Limitations: No Limitations Description of Symptoms (Recalled from ER Triage Doc. by RN): PT REPORTS PAIN AT UMBILICUS/ABDOMEN THAT RADIATES TO BACK. PAIN BEGAN ON SATURDAY. HX OF COLITIS AND CROHNS. REPORTS DECREASED URINARY OUTPUT. History of Present Illness HPI narrative: 36 yo/M, hx of crohn's colitis, nephrolithiasis,denies any prior abdominal surgeries, presents with lower abdominal pain, located in the periumbilical, suprapubic region, ongoing for about 3 days. Reports associated decreased urinary output, radiation to the back, rated as moderate in severity, constant. No clear palliative or exacerbating factors, no fever, chills, N/V, diarrhea, constipation, hematochezia or melena or other symptoms at this time. Related Data Home Medications Medication Instructions Recorded Confirmed omeprazole magnesium 20 mg 20 mg PO DAILY GERD 03/06/20 04/09/22 tablet,delayed release bisoprolol fumarate 5 mg tablet 5 mg PO DAILY High blood pressure 04/09/22 04/09/22 Allergies Allergy/AdvReac Type Severity Reaction Status Date / Time morphine [MORPHINE] Allergy Mild Verified 09/14/20 20:36 [facility] Medical History No significant past medical history Surgical History H/O wisdom tooth extraction History of tonsillectomy and adenoidectomy Family History Other No significant family history Social History Smoking Status: Never smoker second hand exposure: No alcohol intake: never current occupational status: employed Travel in the last 8 weeks: None household members: spouse and children housing: house current occupational exposures/hazards: No caffeine: Yes ROS Obtained: Yes Systems reviewed as appropriate & no additional complaints except as documented Constitutional Constitutional: Reports system reviewed and no additional complaints, except as documented Eyes Eyes: Reports system reviewed and no additional complaints, except as documented ENT Ears, Nose, Mouth, and Throat: Reports system reviewed and no additional complaints, except as documented Cardiovascular Cardiovascular: Reports system reviewed and no additional complaints, except as documented Respiratory Respiratory: Reports system reviewed and no additional complaints, except as documented Gastrointestinal Gastrointestingal: Reports as per HPI and abdominal pain Genitourinary Male Genitourinary: Reports as per HPI and Reports difficulty urinating Musculoskeletal Musculoskeletal: Reports system reviewed and no additional complaints, except as documented Integumentary/Breasts Skin/Breast: Reports system reviewed and no additional complaints, except as documented Neurologic Neurologic: Reports system reviewed and no additional complaints, except as documented Endocrine Endocrine: Reports system reviewed and no additional complaints, except as documented Hematologic/Lymphatic Henatologic/Lymphatic: Reports system reviewed and no additional complaints, except as documented Allergic/Immunologic Allergic/Immunologic: Repo
--- NOTE | 2022-04-09 08:11 | PC.NURSE ---
PT RETURNED FROM CT
--- NOTE | 2022-04-09 08:14 | PC.NURSE ---
DR. DONNELLY AT BEDSIDE TO EVALUATE PT
[2022-04-09 08:17] LABS: Erythrocyte Sedimentation Rate 6 mm/hr (0-15)
--- NOTE | 2022-04-09 08:27 | PC.NURSE ---
PT MEDICATED PER EMAR. DENIES NEEDS AT THIS TIME.
[2022-04-09 08:30] VITALS: BP 131/93; PULSE 55; RESP 20; O2SAT 97
[2022-04-09 09:00] VITALS: BP 125/88; PULSE 55; RESP 20; O2SAT 98
--- NOTE | 2022-04-09 09:16 | PC.NURSE ---
contacted rad to check on status of CT scan, states she will check on it and let us know.
--- NOTE | 2022-04-09 09:26 | PC.NURSE ---
ED MD AT BEDSIDE TO REEVALUATE PT AND DISCUSS POC
[2022-04-09 09:30] VITALS: BP 125/88; PULSE 60; RESP 18; TEMP 36.6; O2SAT 100
== END 2022-04-09 09:30 | disposition home or self-care (01) ==
PROVIDERS: Emergency Medicine; Emergency Provider Emergency Medicine
DX: R10.9 Unspecified abdominal pain (principal)
CPT/HCPCS: 74177; 80053; 81001; 82150; 83690; 85025; 85651; 86140; 96374; 99284; Q9967

== ENCOUNTER 2023-09-22 11:10 | Emergency (ER) | payer BC, SELFPAY ==
--- NOTE | 2023-09-22 11:14 | XR_ITS ---
PROCEDURE INFORMATION: Exam: XR Chest Exam date and time: 09/22/2023 11:58 AM Age: 37 years old Clinical indication: Cough; Additional info: Cough ang congestion for 2 weeks. Non-smoker. TECHNIQUE: Imaging protocol: Radiologic exam of the chest. Views: 2 views. Total images: 2 COMPARISON: CR XR CHEST PORTABLE 09/30/2021 5:56 PM FINDINGS: Lungs: Bilateral hyperinflation is present. Pleural spaces: No focal pneumonia or pneumothorax. No pleural effusions. Heart/Mediastinum: Unremarkable. No cardiomegaly. Bones/joints: Unremarkable. IMPRESSION: 1. Bilateral hyperinflation is present. 2. No focal pneumonia or pneumothorax. 3. No pleural effusions.
[2023-09-22 11:50] VITALS: BP 111/74; PULSE 72; RESP 19; TEMP 36.9; O2SAT 97; BMI 31.1
--- NOTE | 2023-09-22 12:14 | ED_ITS ---
Discharge Plan Disposition Patient Disposition: Home, Self-Care Condition: Good Prescriptions Prescriptions: New amoxicillin-pot clavulanate 875-125 mg Tablet 1 tab PO Q12H Qty: 20 0RF guaifenesin [Mucinex] 600 mg tablet extended release 12hr 1,200 mg PO BID PRN (Reason: cough) Qty: 20 0RF prednisone [prednisone] 20 mg tablet 20 mg PO BID 5 Days Qty: 10 0RF albuterol sulfate [Proventil HFA] 90 mcg/actuation HFA aerosol inhaler 2 puff inhalation Q4-6H PRN (Reason: shortness of breath or wheezing) Qty: 8.5 0RF No Action omeprazole magnesium 20 MG tablet,delayed release (DR/EC) 20 mg PO DAILY bisoprolol fumarate 5 MG tablet 5 mg PO DAILY Referrals Follow up/Referrals: Luke Villagran II, MD [Primary Care Provider] - See instructions Activity Restrictions/Add. Instructions Additional Instructions/Restrictions: * Start antibiotic today. Be sure to complete entire prescription even if feeling better * Monitor temp. Tylenol every 4 hours as needed and / or ibuprofen every 6 hours as needed ( As long as your primary care physician has told you that it ok to take both. For fever/aches/pains ER if no less than 101 despite Tylenol or Motrin * Humidifier/vaporizer or hot steamy shower * Inhaler every 4-6 hours as needed like we discussed. If unsure how to use it, ask pharmacist to demonstrate how. Should help open airways and improve cough, wheezing, and shortness of breath * Mucinex during the day for your cough Be sure to drink lots of water. Insurance may not cover a prescriptions for mucinex. Might be cheaper to get 400mg tablets and take 2 tablet in the morning, mid-day and evening with lots of water. *Start steroid today. Helps with inflammation therefore, cough and wheezing. Follow directions on the package. Reviewed side effects. Patient reports taking them before. Follow up IMMEDIATELY for new or worsening of symptoms OR no noticeable improvement over the next 48-72 hours. 911 immediately for any life threatening symptoms such as chest pain or difficulty breathing Clinical Impressions Clinical Impression: Bronchitis Instructions Patient Instructions: Acute Bronchitis, Cough Discharge ED Provider: Deanne Whyte [facility] HPI General Stated complaint: wet cough, weak, congestion Mode of Arrival: Ambulatory Source of Information: Patient Limitations: No Limitations Time Seen by Provider: 09/22/23 12:14 Description of Symptoms (Recalled from Triage Doc. by RN): PATIENT C/O PRODUCTIVE COUGH AND CONGESTION X 1 WEEK HEENT Symptoms (Recalled from RN notes): No Resp Symptoms (Recalled from RN notes): Yes Skin Symptoms (Recalled from RN notes): No MS Symptoms (Recalled from RN notes): No Functional Status (Recalled from RN notes): WNL History of Present Illness Provider Complaint: Patient states that he has been sick about 2 weeks States that he has been having sinus congestion/pressure, cough, feeling like he is wheezing at times at night and feeling achy and fatigue States today he wasnt feeling any better so he came in to get checked Related Data Home Medications Medication Instructions Recorded Confirmed omeprazole magnesium 20 mg 20 mg PO DAILY GERD 03/06/20 09/22/23 tablet,delayed release bisoprolol fumarate 5 mg tablet 5 mg PO DAILY High blood pressure 04/09/22 09/22/23 Previous Rx's Medication Instructions Recorded albuterol sulfate 90 mcg/actuation 2 puff inhalation Q4-6H PRN 09/22/23 aerosol inhaler (Proventil HFA) shortness of breath or wheezing #8.5 grams amoxicillin 875 mg-potassium 1 tab PO Q12H #20 tabs 09/22/23 clavulanate 125 mg tablet guaifenesin 600 mg tablet, 1,200 mg PO BID PRN cough #20 tabs 09/22/23 extended release 12 hr (Mucinex) prednisone 20 mg tablet 20 mg PO BID 5 days #10 tabs 09/22/23 Allergies Allergy/AdvReac Type Severity Reaction Status Date / Time morphine [MORPHINE] Allergy Mild Verified 09/14/20 20:36 Worker's Comp Is this a Worker's Comp case?: No [facility] Disclaimer: The information contained in this section may have been updated after the patient was seen, as this information can be updated by other users. Medical History No significant past medical history Surgical History H/O wisdom tooth extraction History of tonsillectomy and adenoidectomy Family History Other No significant family history Social History Smoking Status: Never smoker second hand exposure: No alcohol intake: never current occupational status: employed Travel in the last 8 weeks: None household members: spouse and children housing: house current occupational exposures/hazards: No caffeine: Yes ROS Obtained: Yes All systems reviewed & no additional complaints except as documented and Yes Systems reviewed as appropriate & no additional complaints except as documented Constitutional Constitutional: Reports system reviewed and no additional complaints, except as documented, Reports as per HPI, Reports body ache and Reports headache(s) ENT Ears, Nose, Mouth, and Throat: Reports system reviewed and no additional complaints, except as documented, Reports as per HPI, Reports headache(s), Reports nasal congestion and Reports sinus pressure Cardiovascular Cardiovascular: Reports system reviewed and no additional complaints, except as documented and Reports as per HPI Respiratory Respiratory: Reports system reviewed and no additional complaints, except as documented, Reports as per HPI, Reports chest congestion, Reports cough and Reports pain with cough (at times) Gastrointestinal Gastrointestingal: Reports system reviewed and no additional complaints, except as documented and as per HPI Neurologic Neurologic: Reports headache(s) Physical Exam General General appearance: alert and in no apparent distress ENT ENT exam: Present mucous membranes moist Expanded ENT Exam Nose exam: Present sinus tenderness Chest Chest inspection: Present normal inspection and symmetric chest wall rise Respiratory Respiratory exam: Present normal lung sounds bilaterally; Absent respiratory distress or wheezes Cardiovascular Cardiovascular exam: Present regular rate, normal rhythm and normal heart sounds Neurological Exam Neurological exam: Present alert, oriented X3 and normal gait Medical Decision Making Asim Inquiry Pt receiving controlled substance: No Asim was queried for this patient: No Vital Signs: 09/22/23 11:50 Temperature 98.4 F Temperature Source Oral Pulse Rate [Left Brachial] 72 Respiratory Rate 19 Blood Pressure [Left Arm] 111/74 Blood Pressure Mean [Left Arm] 86 Blood Pressure Source [Left Arm] Automatic Cuff Blood Pressure Position [Left Arm] Sitting 02 Sat by Pulse Oximetry 97 Oxygen Delivery Method Room Air Orders (Tests/Meds): ORDERS Category Date Time Status CXR 2 view (NOT portable) [XR chest 2V] Stat Exams 09/22/23 11:14 Taken Radiology Data #1: Image(s): Chest Image Reviewed: Yes I have reviewed radiologist's interpretation IMPRESSION: 1. Bilateral hyperinflation is present. 2. No focal pneumonia or pneumothorax. 3. No pleural effusions.
[2023-09-22 13:13] VITALS: BP 111/74; PULSE 72; RESP 19; TEMP 36.9; O2SAT 97
[2023-09-22 13:23] LABS: Coronavirus 19, PCR Not Detected (NotDetected); Influenza B, PCR Not Detected (NotDetected)
[2023-09-22 13:50] LABS: Influenza A, PCR Detected (NotDetected)
[2023-09-22 19:02] LABS: UTC Influenza A Antigen Negative (Negative); UTC Influenza B Antigen Positive (Negative)
== END 2023-09-22 13:18 | disposition home or self-care (01) ==
PROVIDERS: Emergency Provider Nurse Practitioner; PCP Family Medicine
DX: J10.1 Influenza due to other identified influenza virus with other respiratory manifestations (principal); J20.9 Acute bronchitis, unspecified; R05.8 Other specified cough; R09.81 Nasal congestion; R53.83 Other fatigue
CPT/HCPCS: 71046; 87636; 87804; 99204; 99212; G0463

== ENCOUNTER 2023-10-16 07:25 | Emergency (ER) | payer BC, SELFPAY ==
[2023-10-16 07:26] VITALS: BP 114/91; PULSE 92; RESP 22; TEMP 36.5; O2SAT 98; BMI 28.7
--- NOTE | 2023-10-16 07:39 | ED_ITS ---
Discharge Plan Disposition Patient Disposition: Home, Self-Care Condition: Good Prescriptions Prescriptions: No Action omeprazole magnesium 20 MG tablet,delayed release (DR/EC) 20 mg PO DAILY bisoprolol fumarate 5 MG tablet 5 mg PO DAILY albuterol sulfate [Proventil HFA] 90 mcg/actuation HFA aerosol inhaler 2 puff inhalation Q4-6H PRN (Reason: shortness of breath or wheezing) Qty: 8.5 0RF pantoprazole 40 mg tablet,delayed release (DR/EC) 40 mg PO DAILY Patient Comments: TAKE 1 TABLET BY MOUTH ONCE DAILY Referrals Follow up/Referrals: Guzman Jennings MD [Staff Physician] - See instructions Luke Villagran II, MD [Primary Care Provider] - See instructions Activity Restrictions/Add. Instructions Additional Instructions/Restrictions: You were evaluated in the emergency department today. Please keep your wound clean and dry. Do not submerge under any water. Do not scrub the area. Wear loosefitting clothes. Avoid strenuous activity. Allow the glue to fall off on its own. Do not pick at it. Take Tylenol and ibuprofen at home as needed for pain. Follow-up closely with your primary care provider. I also recommend follow-up with urology to ensure that your wound heals well. Return to the emergency department for any new or worsening symptoms, such as your wound opening, significant worsening of pain and swelling, or other concerns. Clinical Impressions Clinical Impression: Laceration of penis Instructions Patient Instructions: DI for Laceration Repair-Skin Glue Discharge ED Provider: Lou Cooney General Adult HPI General Chief complaint: Skin/Abscess/Foreign Body Stated complaint: AO, laceration to penis Time Seen by Provider: 10/16/23 07:33 History of Present Illness HPI narrative: This patient is a 37-year-old male who reports a history of Crohn's disease, renal insufficiency, Fry's esophagus, hypertension, hyperlipidemia, and GERD presenting with concern for injury to his penis. Patient reports that he had felt nauseated and had felt unwell since yesterday, and today he woke up on the couch and got up to go to the bathroom. He states that he had the heater on in the bathroom and thinks that he may have gotten too hot. He notes he was initially standing to use the bathroom, but then he sat down. At this point, he felt more lightheaded, so he states that he felt himself going out and leaned forward on the toilet to get to the ground so that he could lower himself and lie down. He notes that he remembers lowering himself to the ground slowly and laying on his stomach. When he started to feel better, he noted that his penis was hurting and he saw blood and began to panic. Given this, he had his bring him in. He is unsure when his last tetanus shot was. He denies any other concerns or complaints, such as pain elsewhere, headache, vision changes, numbness, tingling, unilateral weakness, chest pain, shortness of breath, vomiting, changes bowel movements, or other concerns. Related Data Home Medications Medication Instructions Recorded Confirmed omeprazole magnesium 20 mg 20 mg PO DAILY GERD 03/06/20 10/16/23 tablet,delayed release bisoprolol fumarate 5 mg tablet 5 mg PO DAILY High blood pressure 04/09/22 10/16/23 pantoprazole 40 mg tablet,delayed 40 mg PO DAILY 10/16/23 10/16/23 release Previous Rx's Medication Instructions Recorded albuterol sulfate 90 mcg/actuation 2 puff inhalation Q4-6H PRN 09/22/23 aerosol inhaler (Proventil HFA) shortness of breath or wheezing #8.5 grams Allergies Allergy/AdvReac Type Severity Reaction Status Date / Time morphine [MORPHINE] Allergy Mild Verified 09/14/20 20:36 [facility] Disclaimer: The information contained in this section may have been updated after the patient was seen, as this information can be updated by other users. Medical History No significant past medical history Surgical History H/O wisdom tooth extraction History of tonsillectomy and adenoidectomy Family History Other No significant family history Social History Smoking Status: Former smoker tobacco type: smokeless tobacco second hand exposure: No alcohol intake: never current occupational status: employed Travel in the last 8 weeks: None household members: spouse and children housing: house current occupational exposures/hazards: No caffeine: Yes ROS Obtained: Yes All systems reviewed & no additional complaints except as documented Physical Exam General General appearance: alert Comment: Uncomfortable appearing Head Head exam: atraumatic and normocephalic Eye Eye exam: Present normal appearance, PERRL and EOMI ENT ENT exam: Present normal exam, normal oropharynx, mucous membranes moist and normal external ear exam Neck Neck exam: Present normal inspection, full ROM and trachea midline; Absent tenderness Chest Chest inspection: Present normal inspection and symmetric chest wall rise; Absent tenderness Respiratory Respiratory exam: Present normal lung sounds bilaterally; Absent respiratory distress, wheezes, stridor or accessory muscle use Cardiovascular Cardiovascular exam: Present regular rate and normal rhythm Abdominal Exam Abdominal exam: Present soft; Absent distention, tenderness or guarding Expanded Exam exam: Absent priapism or ulcerations Male Image: 2 1. Superficial 4 cm laceration to dorsum of penis Comment: No obvious swelling of the penis. No obvious testicular tenderness/swelling. No blood at the urethral meatus. Extremities Exam Extremities exam: Present normal inspection, full ROM and normal capillary refill; Absent tenderness or edema Back Exam Back exam: Present normal inspection and full ROM; Absent tenderness Neurological Exam Neurological exam: Present alert, oriented X3, CN II-XII intact and normal gait; Absent motor sensory deficit Psychiatric Psychiatric exam: Present normal affect and normal mood Skin Skin exam: Present warm and dry Medical Decision Making Medical Records Medical records reviewed: Yes I reviewed the patient's medical records. Asim Inquiry Pt receiving controlled substance: No Vital Signs: 10/16/23 07:26 10/16/23 08:00 10/16/23 08:30 Temperature 97.7 F Temperature Source Oral Pulse Rate 72 64 Pulse Rate [Right] 92 H Respiratory Rate 22 14 10 L Blood Pressure 114/71 107/76 L Blood Pressure [Right Arm] 114/91 H Blood Pressure Mean 84 Blood Pressure Mean [Right Arm] 98 Blood Pressure Source [Right Arm] Automatic Cuff 02 Sat by Pulse Oximetry 98 95 95 Oxygen Delivery Method Room Air Room Air 10/16/23 09:00 10/16/23 09:30 Temperature Temperature Source Pulse Rate 61 62 Pulse Rate [Right] Respiratory Rate 11 L 18 Blood Pressure 115/77 111/75 Blood Pressure [Right Arm] Blood Pressure Mean Blood Pressure Mean [Right Arm] Blood Pressure Source [Right Arm] 02 Sat by Pulse Oximetry 94 L 95 Oxygen Delivery Method Room Air Room Air Lab Data Lab results reviewed: Yes I reviewed the patient's lab results. Lab Results 10/16/23 07:36: WBC 6.1, RBC 5.01, Hgb 15.4, Hct 45.9, MCV 91.5, MCH 30.8, MCHC 33.6, RDW 13.6, Plt Count 249, MPV 10.9 H, Neut % (Auto) 49.4, Lymph % (Auto) 41.0, [place] % (Auto) 5.6, Eos % (Auto) 3.0, Baso % (Auto) 1.1, Neut # (Auto) 3.0, Lymph # (Auto) 2.5, [place] # (Auto) 0.3, Eos # (Auto) 0.2, Baso # (Auto) 0.1, Sodium 140, Potassium 3.6, Chloride 110 H, Carbon Dioxide 25, Anion Gap 8.6, BUN 16, Creatinine 1.10, Estimated GFR 75, Est GFR ( Amer) 90, Glucose 128 H, Calcium 9.7, Total Bilirubin 0.7, AST 33, ALT 50, Alkaline Phosphatase 83, Troponin I < 0.01, Total Protein 6.8, Albumin 4.1, Globulin 2.7, Albumin/Globulin Ratio 1.5, Lipase 84 10/16/23 08:01: SARS-CoV-2 (PCR) Not detected, Influenza A Untype (PCR) Not detected, Influenza Type B (PCR) Not detected 10/16/23 09:18: Urine Color Yellow, Urine Appearance Clear, Urine pH 6.0, Ur Specific [place] >= 1.030, Urine Protein Negative, Urine Glucose (UA) Negative, Urine Ketones Negative, Urine Blood 1+, Urine Nitrate Negative, Urine Bilirubin 1+ A, Urine Urobilinogen 0.2, Ur Leukocyte Esterase Negative, Urine RBC Occasional, Urine WBC Occasional, Urine Bacteria Trace, Urine Mucus 1+ 10/16/23 07:36 10/16/23 07:36 Orders (Tests/Meds): ED MEDICATIONS Discontinued Medications Generic Name Dose Route Start Last Admin Trade Name Freq PRN Reason Stop Dose Admin Acetaminophen 1,000 mg 10/16/23 07:35 10/16/23 07:55 Acetaminophen 1,000mg/100ml Vial IV 10/16/23 07:36 1,000 mg ONCE ONE Administration Hydromorphone HCl 0.5 mg 10/16/23 08:28 10/16/23 08:42 Hydromorphone 2mg/Ml Syringe IV 10/16/23 08:29 0.5 mg ONCE ONE Administration Lactated Ringer's 1,000 mls @ 999 mls/hr 10/16/23 07:33 10/16/23 07:55 Lactated Ringer's 1000 Ml Bag IV 10/16/23 08:33 999 mls/hr .Q1H1M ONE Administration Ketorolac Tromethamine 15 mg 10/16/23 07:35 10/16/23 07:56 Ketorolac 30mg/Ml Vial IV 10/16/23 07:36 15 mg ONCE ONE Administration Lidocaine HCl 20 ml 10/16/23 10:04 Lidocaine 1% 20ml Mdv IJ 10/16/23 10:05 ONCE ONE Morphine Sulfate 4 mg 10/16/23 07:33 10/16/23 07:39 Morphine 4mg/Ml Syringe IV 10/16/23 07:34 Not Given ONCE ONE Ondansetron HCl 4 mg 10/16/23 07:33 10/16/23 07:56 Ondansetron 4mg/2ml Vial IV 10/16/23 07:34 4 mg ONCE ONE Administration Tetanus/Reduced Diphtheria/Acell Pertussis 0.5 ml 10/16/23 07:36 10/16/23 07:58 Tet/Diphth/Pert-Adult 0.5ml Syringe IM 10/16/23 07:37 0.5 ml .ONCE ONE Administration ORDERS Category Date Time Status Complete Blood Count Auto Diff Stat Lab 10/16/23 07:36 Completed Comprehensive Metabolic Panel Stat Lab 10/16/23 07:36 Completed Lipase Stat Lab 10/16/23 07:36 Completed Rapid PCR Covid and Flu A/B Stat Lab 10/16/23 08:01 Completed Troponin I Q3H Lab 10/16/23 10:45 Ordered Troponin I Q3H Lab 10/16/23 13:45 Ordered Troponin I Stat Lab 10/16/23 07:36 Completed Urinalysis and Microscopic Stat Lab 10/16/23 09:18 Completed ECG Data Tracing #1: I reviewed this ECG and interpreted as documented below: Normal sinus rhythm with a ventricular rate of [address] changes concerning for ischemia. Normal axis and intervals. ECG initial impression date: 10/16/23 ECG initial impression time: 07:48 Medical Decision Narrative: In summary, this patient is a 37-year-old male presenting to the Emergency Department for evaluation of penile injury. Differential diagnoses considered include but are not limited to laceration, abrasion, penile fracture, urethral injury. Ruling out the most morbid conditions drove assessment. On exam, the patient is uncomfortable appearing. Vitals are reassuring cardiac telemetry. Patient has superficial laceration to the dorsum of the penis with no obvious bruising, deformity, or other concern. No blood in 3 through meatus. Of note, this happened because he had not been feeling well and felt like he was going to pass out. He has also been nauseated. Workup included CBC, CMP, lipase, urinalysis, troponin, EKG. EKG obtained is reassuring. Will assess the patient's ability to urinate on his own. Tdap booster was administered as well as IV Toradol, acetaminophen, and Zofran for symptomatic improvement. Bolus of IV fluids was also administered. On reassessment, the patient is resting comfortably. He was able to urinate without difficulty. Pain is improved. No significant penile swelling or deformity noted. Urine is positive for occasional red blood cells, but otherwise urine is reassuring. I called and had an interactive discussion with Dr. Zuleta with urology at [facility] who advised that simple laceration repair and discharge home is appropriate given the fact that he is able to urinate without difficulty. Labs were obtained that are reassuring without acutely concerning abnormality. Patient is feeling much better without significant lightheadedness or any other concerns or complaints. Given reassuring workup and exam, feel patient is appropriate for simple laceration repair and discharge home. I advised that given the size of the wound, sutures may be the best option, but patient states that he does not want any needles or anything like that. Given this, he is requesting it to be glued. Informed consent was obtained and Dermabond was applied after explanation of risk versus benefit. Wound is copiously irrigated prior to this. Please see laceration repair note for further recommendation. Patient tolerated this very well. Patient was given strict return precautions, instructions for wound care, instructions for close a patient follow-up, and he was discharged in stable condition after all questions were answered. Procedures Risk/Benefits of Procedure(s) Were Explained: Yes Laceration Laceration 1: Site: penis Size (cm): 3 Description: linear Depth: simple, single layer Pre-repair: wound explored, irrigated extensively and deep structures intact Skin layer closed with: Dermabond Critical Care Critical Care Time Critical Care Time: No
[2023-10-16 07:45] LABS: Basophils # 0.1 K/mm3 (0-0.2); Basophils % 1.1 % (0.1-2.0); Eosinophils # 0.2 K/mm3 (0.0-0.4); Hematocrit 45.9 % (42.0-52.0); Hemoglobin 15.4 g/dL (14.1-18.0); Lymphocytes # 2.5 K/mm3 (0.7-4.5); Mean Corpuscular HGB Conc 33.6 g/dL (31.8-35.4); Mean Corpuscular Hemoglobin 30.8 pg (27.0-31.2); Mean Corpuscular Volume 91.5 fl (80-94); Mean Platelet Volume 10.9 fl (7.4-10.4); Monocytes # 0.3 K/mm3 (0.1-1.0); Monocytes % 5.6 % (1.7-9.3); Neutrophils % 49.4 % (37.0-80.0); Platelet Count 249 K/mm3 (142-424); Red Blood Count 5.01 M/mm3 (4.60-6.20); Red Cell Distribution Width 13.6 % (11.5-17.5); White Blood Count 6.1 K/mm3 (4.8-10.8)
--- NOTE | 2023-10-16 07:45 | ECG_ITS ---
APPROVED REPORT Exam: Resting ECG HR:76 bpm ECG Measurements Heart Rate 76 AXES KS 159 P 63 QRSd 85 QRS 66 QT 344 T 64 QTc 374 Conclusion SINUS RHYTHM WITH OCCASIONAL VENTRICULAR PREMATURE COMPLEXES BORDERLINE ECG Electronically signed by : CORRINE CORTES, 10/16/2023 15:27:07
[2023-10-16 07:51] LABS: Chloride 110 mmol/L (98-107); Potassium 3.6 mmoL/L (3.5-5.1); Sodium 140 mmol/L (136-145)
[2023-10-16 07:53] LABS: Alanine Aminotransferase 50 U/L (12-78); Aspartate Amino Transferase 33 U/L (17-59); Bilirubin,Total 0.7 mg/dl (0.2-1.3); Blood Urea Nitrogen 16 mg/dl (9-20); Estimated Glomerular Filt Rate 75 ml/min (>60); GFR (African American) 90 ML/MIN (>60)
[2023-10-16 07:54] LABS: Albumin Level 4.1 g/dl (3.5-5.0); Albumin/Globulin Ratio 1.5 (1.1-1.8); Alkaline Phosphatase 83 U/L (38-126); Anion Gap 8.6 mEq/L (5-15); Calcium 9.7 mg/dl (8.4-10.2); Carbon Dioxide 25 mmol/L (22.0-30.0); Globulin 2.7 g/dL (1.3-3.2); Glucose 128 mg/dl (74-100); Lipase 84 U/L (23-300); Total Protein,Serum 6.8 g/dl (6.3-8.2)
[2023-10-16] MEDS: ACETAMINOPHEN 1,000MG/100ML VIAL 1000 MG IV (07:55)
[2023-10-16] MEDS: LACTATED RINGERS 1000ML 1,000 ML 999 ML IV (07:55)
[2023-10-16] MEDS: ONDANSETRON 4MG/2ML VIAL 4 MG IV (07:56)
[2023-10-16] MEDS: KETOROLAC 30MG/ML VIAL 15 MG IV (07:56)
[2023-10-16] MEDS: TET/DIPHTH/PERT-ADULT 0.5ML SYRINGE 0.5 ML IM (07:58)
[2023-10-16 08:00] VITALS: BP 114/71; PULSE 72; RESP 14; O2SAT 95
--- NOTE | 2023-10-16 08:02 | PC.NURSE ---
Pt provided with urinal and made aware we need to obtain a urine sample
[2023-10-16 08:05] LABS: Coronavirus 19, PCR Not Detected (NotDetected); Influenza A, PCR Not Detected (NotDetected); Influenza B, PCR Not Detected (NotDetected)
[2023-10-16 08:29] LABS: Troponin I < 0.01 ng/ml (0.00-0.034)
[2023-10-16 08:30] VITALS: BP 107/76; PULSE 64; RESP 10; O2SAT 95
[2023-10-16] MEDS: HYDROMORPHONE 2MG/ML SYRINGE 0.5 MG IV (08:42)
[2023-10-16 09:00] VITALS: BP 115/77; PULSE 61; RESP 11; O2SAT 94
--- NOTE | 2023-10-16 09:08 | PC.NURSE ---
pt attempting to give urine sample
[2023-10-16 09:23] LABS: Microscopic, Urine URINE MICROSCOPIC (MICROSCOPIC)
[2023-10-16 09:27] LABS: Appearance,Urine CLEAR (Clear); Blood, Urine 1+ (Negative); Color,Urine YELLOW (Yellow); Glucose,Urine (UA) Negative (Negative); Ketones,Urine Negative (Negative); Leukocyte Esterase,Urine Negative (Negative); Nitrate,Urine Negative (Negative); Protein,Urine Negative (Negative); Specific Gravity, Urine >= 1.030 (1.005-1.030); Urobilinogen,Urine 0.2 EU/dl (0.2)
[2023-10-16 09:30] VITALS: BP 111/75; PULSE 62; RESP 18; O2SAT 95
[2023-10-16 09:47] LABS: Bilirubin,Urine 1+ (Negative)
--- NOTE | 2023-10-16 09:51 | PC.NURSE ---
called [facility] to consult with urology about this pt.Advised damir would call us back
[2023-10-16 09:58] LABS: Bacteria,Urine Trace /lpf; Mucus,Urine 1+ /lpf; RBC,Urine Occasional #/hpf (0-3); WBC,Urine Occasional #/hpf (0-3)
--- NOTE | 2023-10-16 09:59 | PC.NURSE ---
DR CORTES SPEAKING WITH [facility]
[2023-10-16] MEDS: LIDOCAINE 1% 20ML MDV 20 ML IJ (10:24)
[2023-10-16 10:25] VITALS: BP 107/67; PULSE 57; RESP 18; TEMP 36.5; O2SAT 99
== END 2023-10-16 10:34 | disposition home or self-care (01) ==
PROVIDERS: Emergency Provider Emergency Medicine; PCP Family Medicine
DX: S31.21XA Laceration without foreign body of penis, initial encounter (principal); I10 Essential (primary) hypertension; K21.9 Gastro-esophageal reflux disease without esophagitis; W26.8XXA Contact with other sharp object(s), not elsewhere classified, initial encounter; Z23 Encounter for immunization
CPT/HCPCS: 12002; 80053; 81001; 83690; 84484; 85025; 87636; 90471; 90715; 93005; 96361; 96374; 96375; 99285; J0131; J2405

== ENCOUNTER 2024-05-26 17:30 | Emergency (ER) | payer BC, SELFPAY ==
--- NOTE | 2024-05-26 17:59 | XR_ITS ---
PROCEDURE INFORMATION: Exam: XR Right Foot Exam date and time: 05/26/2024 5:54 PM Age: 38 years old Clinical indication: Pain; Foot; Right; Additional info: Medial sided pain, no known injury TECHNIQUE: Imaging protocol: Radiologic exam of the right foot. Views: 3 or more views. COMPARISON: CR [id number] XR foot RT min 3V 04/13/2018 9:49 AM FINDINGS: Bones/joints: Osseous alignment is normal. No acute fracture. No significant arthritic change. Soft tissues: Normal. IMPRESSION: Negative right foot
[2024-05-26 18:00] VITALS: BP 149/97; PULSE 71; RESP 18; TEMP 36.9; O2SAT 97; BMI 28.1
--- NOTE | 2024-05-26 18:20 | ED_ITS ---
Discharge Plan Disposition Patient Disposition: Home, Self-Care Condition: Good Prescriptions Prescriptions: New indomethacin 50 mg capsule 50 mg PO TID PRN (Reason: gout) Qty: 15 0RF Rx Instructions: administer with food or milk No Action omeprazole magnesium 20 MG tablet,delayed release (DR/EC) 20 mg PO DAILY bisoprolol fumarate 5 MG tablet 5 mg PO DAILY albuterol sulfate [Proventil HFA] 90 mcg/actuation HFA aerosol inhaler 2 puff inhalation Q4-6H PRN (Reason: shortness of breath or wheezing) Qty: 8.5 0RF pantoprazole 40 mg tablet,delayed release (DR/EC) 40 mg PO DAILY Patient Comments: TAKE 1 TABLET BY MOUTH ONCE DAILY Referrals Follow up/Referrals: Luke Villagran II, MD [Primary Care Provider] - See instructions Activity Restrictions/Add. Instructions Additional Instructions/Restrictions: Take indomethacin as prescribed Follow up with your Family Doctor if symptoms does not improve Straight to ER if any life threatening symtoms Clinical Impressions Clinical Impression: Pseudogout Instructions Patient Instructions: DI for Pseudogout, Indomethacin Print Language Print Language: Setswana Discharge ED Provider: Deanne Whyte [facility] [place] Stated complaint: poss gout Time Seen by Provider: 05/26/24 18:20 History of Present Illness Provider Complaint: Patient states that he started yesterday having pain in the middle of the bottom of his right foot at the base of his big toe States that he wasnt sure if it was gout or if he hurt it when he slipped on the step on his truck 2 days ago at work so he came in to get it checked Related Data Home Medications ?Medication ?Instructions ?Recorded ?Confirmed omeprazole magnesium 20 mg 20 mg PO DAILY GERD 03/06/20 10/16/23 tablet,delayed release bisoprolol fumarate 5 mg tablet 5 mg PO DAILY High blood pressure 04/09/22 10/16/23 pantoprazole 40 mg tablet,delayed 40 mg PO DAILY 10/16/23 10/16/23 release Previous Rx's ?Medication ?Instructions ?Recorded albuterol sulfate 90 mcg/actuation 2 puff inhalation Q4-6H PRN 09/22/23 aerosol inhaler (Proventil HFA) shortness of breath or wheezing #8.5 grams indomethacin 50 mg capsule 50 mg PO TID PRN gout #15 caps 05/26/24 Allergies Allergy/AdvReac Type Severity Reaction Status Date / Time morphine [MORPHINE] Allergy Mild Verified 09/14/20 20:36 [facility] Disclaimer: The information contained in this section may have been updated after the patient was seen, as this information can be updated by other users. Medical History No significant past medical history Surgical History H/O wisdom tooth extraction History of tonsillectomy and adenoidectomy Family History Other No significant family history Social History Smoking Status: Former smoker tobacco type: smokeless tobacco second hand exposure: No alcohol intake: never current occupational status: employed Travel in the last 8 weeks: None household members: spouse and children housing: house current occupational exposures/hazards: No caffeine: Yes ROS Obtained: Yes All systems reviewed & no additional complaints except as documented and Yes Systems reviewed as appropriate & no additional complaints except as documented Constitutional Constitutional: Reports system reviewed and no additional complaints, except as documented and Reports as per HPI Gastrointestinal Gastrointestingal: Reports system reviewed and no additional complaints, except as documented and as per HPI Genitourinary Male Genitourinary: Reports system reviewed and no additional complaints, except as documented and Reports as per HPI Musculoskeletal Musculoskeletal: Reports system reviewed and no additional complaints, except as documented, Reports as per HPI and Reports other (pain in bottom of right foot) Physical Exam General General appearance: alert and in no apparent distress ENT ENT exam: Present mucous membranes moist Respiratory Respiratory exam: Present normal lung sounds bilaterally; Absent respiratory distress or wheezes Cardiovascular Cardiovascular exam: Present regular rate, normal rhythm and normal heart sounds Expanded Lower Extremity Exam Right: Foot/toe exam: Present tenderness; Absent swelling, abrasion, laceration, ecchymosis, dislocation or erythema Bottom foot image: 2 1. reports achy like pain worse with certain ways he moves it Neurological Exam Neurological exam: Present alert, oriented X3 and normal gait Medical Decision Making Medical Records Screening: Per USPSTF and CDC recommendations, given the prevalence of disease in our region, it is our hospital?s policy to screen for HIV and viral Hepatitis for all patients aged 18 and over and those with ongoing risk factors. Asim Inquiry Pt receiving controlled substance: No Asim was queried for this patient: No Lab Data Lab results reviewed: Yes I reviewed the patient's lab results. Orders (Tests/Meds): ORDERS Category Date Time Status XR foot RT min 3V Stat Exams 05/26/24 17:59 Taken Uric Acid Stat Lab 05/26/24 18:20 Ordered Radiology Data #1: Image(s): Foot/Toes Image Reviewed: Yes I have reviewed radiologist's interpretation IMPRESSION: Negative right foot
[2024-05-26 19:18] LABS: Uric Acid 8.1 mg/dl (3.5-8.5)
[2024-05-26 19:32] VITALS: BP 149/97; PULSE 71; RESP 18; TEMP 36.9; O2SAT 97
== END 2024-05-26 19:34 | disposition home or self-care (01) ==
PROVIDERS: Emergency Provider Nurse Practitioner; PCP Family Medicine
DX: M11.20 Other chondrocalcinosis, unspecified site (principal); M79.671 Pain in right foot
CPT/HCPCS: 73630; 84550; 99212; G0381

== ENCOUNTER 2024-07-13 09:40 | Emergency (ER) | payer BC, SELFPAY ==
--- NOTE | 2024-07-13 10:51 | ED_ITS ---
Discharge Plan Disposition Patient Disposition: Home, Self-Care Condition: Good Prescriptions Prescriptions: New benzonatate 100 mg capsule 100 mg PO TIDP PRN (Reason: Cough) Qty: 30 0RF methylprednisolone 4 mg Tablets,Dose Pack 4 mg PO DIRECTED 6 Days Qty: 21 0RF Rx Instructions: Take 1 pack as directed for 6 days amoxicillin-pot clavulanate 875-125 mg Tablet 1 tab PO Q12H Qty: 20 0RF No Action bisoprolol fumarate 5 MG tablet 5 mg PO DAILY pantoprazole 40 mg tablet,delayed release (DR/EC) 40 mg PO DAILY Patient Comments: TAKE 1 TABLET BY MOUTH ONCE DAILY Referrals Follow up/Referrals: Luke Villagran II, MD [Primary Care Provider] - See instructions Activity Restrictions/Add. Instructions Additional Instructions/Restrictions: Drink plenty of fluids. Take tylenol or ibuprofen for pain or fever. Take the medications as directed. Follow up with your regular doctor. GO TO THE ER FOR ANY WORSENING SYMPTOMS Clinical Impressions Clinical Impression: Bronchitis, Sinusitis Stand Alone Forms Stand Alone Forms: Work/School Release Instructions Patient Instructions: Sinusitis, DI for Sinusitis, DI for Acute Bronchitis Print Language Print Language: [place] Discharge ED Provider: [facility] General Stated complaint: Cough, sore throat, and dizzy Time Seen by Provider: 07/13/24 10:51 Related Data Home Medications ?Medication ?Instructions ?Recorded ?Confirmed bisoprolol fumarate 5 mg tablet 5 mg PO DAILY High blood pressure 04/09/22 07/13/24 pantoprazole 40 mg tablet,delayed 40 mg PO DAILY 10/16/23 07/13/24 release Previous Rx's ?Medication ?Instructions ?Recorded amoxicillin 875 mg-potassium 1 tab PO Q12H #20 tabs 07/13/24 clavulanate 125 mg tablet benzonatate 100 mg capsule 100 mg PO TIDP PRN Cough #30 caps 07/13/24 methylprednisolone 4 mg tablets in 4 mg PO DIRECTED 6 days #21 tabs 07/13/24 a dose pack Allergies Allergy/AdvReac Type Severity Reaction Status Date / Time morphine (MORPHINE) Allergy Mild Verified 09/14/20 20:36 [facility] Disclaimer: The information contained in this section may have been updated after the patient was seen, as this information can be updated by other users. Medical History No significant past medical history Surgical History H/O wisdom tooth extraction History of tonsillectomy and adenoidectomy Family History Other No significant family history Social History Smoking Status: Former smoker tobacco type: smokeless tobacco second hand exposure: No alcohol intake: never current occupational status: employed Travel in the last 8 weeks: None household members: spouse and children housing: house current occupational exposures/hazards: No caffeine: Yes Have you lived/traveled outside [place] in past 30 days?: No Contact w/someone who lives/traveled outside [place] past 30 days?: No Exposure to someone with infectious disease in past 14 days?: No Do you have a fever (greater than 100.4 F or 38 C)?: No Have you tested positive for COVID-19: No Exposed to someone with COVID-19 in past 14 days?: No Do you have a sore throat?: No Do you have a cough?: No Do you have any weakness?: No Do you have any diarrhea?: No Are you experiencing any unusual bleeding?: No Do you have any muscle aches/pain?: No Do you have any abdominal pain?: No Are you experiencing loss of taste or smell?: No ROS Obtained: Yes All systems reviewed & no additional complaints except as documented Constitutional Constitutional: Reports poor appetite Eyes Eyes: Reports system reviewed and no additional complaints, except as documented ENT Ears, Nose, Mouth, and Throat: Reports as per HPI Cardiovascular Cardiovascular: Reports system reviewed and no additional complaints, except as documented and Denies chest pain Respiratory Respiratory: Denies shortness of breath, Reports chest congestion, Reports cough, Denies stridor and Denies wheezing Gastrointestinal Gastrointestingal: Reports system reviewed and no additional complaints, except as documented; Denies abdominal pain, diarrhea or vomiting Musculoskeletal Musculoskeletal: Reports system reviewed and no additional complaints, except as documented and Denies arthralgias Integumentary/Breasts Skin/Breast: Reports system reviewed and no additional complaints, except as documented and Denies rash Neurologic Neurologic: Denies paresthesias Allergic/Immunologic Allergic/Immunologic: Denies wheezing Physical Exam General General appearance: alert and in no apparent distress Eye Eye exam: Present normal appearance, PERRL and EOMI ENT ENT exam: Present mucous membranes moist and normal external ear exam Expanded ENT Exam External ear exam: Present normal external inspection TM/Canal exam: Bilateral TM: erythema and bulging Nose exam: Absent sinus tenderness Nasal speculum exam: Bilateral: normal Mouth exam: Present normal external inspection; Absent drooling Teeth exam: Present normal inspection Throat exam: Present tonsillar erythema and tonsillomegaly Neck Neck exam: Present normal inspection, full ROM and trachea midline; Absent tenderness, lymphadenopathy or thyromegaly Chest Chest inspection: Present normal inspection and symmetric chest wall rise; Abse nt tenderness or rash Respiratory Respiratory exam: Present normal lung sounds bilaterally; Absent respiratory distress, wheezes, stridor or accessory muscle use Cardiovascular Cardiovascular exam: Present regular rate, normal rhythm and normal heart sounds Abdominal Exam Abdominal exam: Present soft; Absent distention, tenderness, guarding, rebound or rigidity Extremities Exam Extremities exam: Present normal inspection, full ROM and normal capillary refill; Absent tenderness or calf tenderness Back Exam Back exam: Present normal inspection and full ROM; Absent tenderness Neurological Exam Neurological exam: Present alert and oriented X3 Psychiatric Psychiatric exam: Present normal affect and normal mood Skin Skin exam: Present warm, dry, intact and normal color Lymphatic Lymphatic Findings: no adenopathy Medical Decision Making Medical Records Medical records reviewed: No I reviewed the patient's medical records. Screening: Per USPSTF and CDC recommendations, given the prevalence of disease in our region, it is our hospital?s policy to screen for HIV and viral Hepatitis for all patients aged 18 and over and those with ongoing risk factors. Asim Inquiry Pt receiving controlled substance: No
[2024-07-13 10:57] VITALS: BP 137/94; PULSE 68; RESP 20; TEMP 36.6; O2SAT 97; BMI 30.6
[2024-07-13 11:05] LABS: UTC Influenza A Antigen Negative (Negative); UTC Strep Screen (Rapid) Negative (Negative)
[2024-07-13 11:06] LABS: UTC Influenza B Antigen Negative (Negative)
[2024-07-13 11:53] VITALS: BP 137/94; PULSE 68; RESP 20; TEMP 36.6
== END 2024-07-13 11:54 | disposition home or self-care (01) ==
PROVIDERS: Emergency Provider Nurse Practitioner Family; PCP Family Medicine
DX: J20.9 Acute bronchitis, unspecified (principal); J01.90 Acute sinusitis, unspecified; R05.9 Cough, unspecified; R07.0 Pain in throat; R42 Dizziness and giddiness; R63.8 Other symptoms and signs concerning food and fluid intake
CPT/HCPCS: 87804; 87880; 99212; G0381

== ENCOUNTER 2024-08-23 12:35 | Observation (INO) | payer BC, SELFPAY ==
[2024-08-23] VITALS (13 sets, daily range): BP systolic 103–143; BP diastolic 69–97; PULSE 54–72; RESP 8–20; TEMP 36.3–37.1; O2SAT 95–98; BMI 29.8; BMI 29.9
--- NOTE | 2024-08-23 12:29 | XR_ITS ---
PROCEDURE INFORMATION: Exam: XR Chest Exam date and time: 08/23/2024 12:51 PM Age: 38 years old Clinical indication: Pain; Angina pectoris; Additional info: Cp TECHNIQUE: Imaging protocol: Radiologic exam of the chest. Views: 1 view. COMPARISON: CT ANGIO CHEST 08/23/2024 12:45 PM FINDINGS: Lungs: Unremarkable. No consolidation. Pleural spaces: Unremarkable. No pleural effusion. No pneumothorax. Heart/Mediastinum: Unremarkable. No cardiomegaly. Bones/joints: Unremarkable. IMPRESSION: No acute findings.
--- NOTE | 2024-08-23 12:29 | CT_ITS ---
PROCEDURE INFORMATION: Exam: CTA Neck With Contrast Exam date and time: 08/23/2024 12:42 PM Age: 38 years old Clinical indication: Dizziness and giddiness; Additional info: Dizzy TECHNIQUE: Imaging protocol: Computed tomographic angiography of the neck with contrast. Exam focused on the cervical segments of the vasculature. 3D rendering (Not supervised by radiologist): MIP and/or 3D reconstructed images were created by the technologist. Radiation optimization: All CT scans at this facility use at least one of these dose optimization techniques: automated exposure control; mA and/or kV adjustment per patient size (includes targeted exams where dose is matched to clinical indication); or iterative reconstruction. Contrast material: ISOVUE 370; Contrast volume: 80 ml; Contrast route: INTRAVENOUS (IV); COMPARISON: CT ANGIO HEAD 08/23/2024 12:42 PM FINDINGS: Right common carotid artery: No stenosis. No dissection or occlusion. Right internal carotid artery: No stenosis of the extracranial segment. No dissection or occlusion. Right external carotid artery: No occlusion or stenosis of the origin. Left common carotid artery: No stenosis. No dissection or occlusion. Left internal carotid artery: No stenosis of the extracranial segment. No dissection or occlusion. Left external carotid artery: No occlusion or stenosis of the origin. Right vertebral artery: No stenosis. No dissection or occlusion. Left vertebral artery: No stenosis. No dissection or occlusion. Soft tissues: Normal. No significant soft tissue swelling. Bones/joints: No acute fracture. Trachea: There is a right posterolateral tracheal diverticulum measuring 1.9 x 1.2 x 1.5 cm. Please see image 45 of series 3. IMPRESSION: 1. No significant carotid or vertebral artery stenosis. 2. Tracheal diverticulum. REFERENCES: NASCET CRITERIA. The degree of stenosis in the cervical segment of the internal carotid artery is based on NASCET criteria. Normal is no stenosis. Mild is less than 50% stenosis. Moderate is 50-69% stenosis. Severe is 70% to 99% stenosis. Total occlusion is no detectable patent lumen.
--- NOTE | 2024-08-23 12:29 | ECG_ITS ---
APPROVED REPORT Exam: Resting ECG HR:64 bpm ECG Measurements Heart Rate 64 AXES MS 125 P 42 QRSd 79 QRS 49 QT 371 T 42 QTc 380 Conclusion Sinus rhythm Upward sloping ST elevation right around 1 mm V2 and V3 likely repolarization Electronically signed by : RO NGUYEN, 08/24/2024 13:20:41
--- NOTE | 2024-08-23 12:30 | PC.NURSE ---
glucose 110
--- NOTE | 2024-08-23 12:31 | PC.NURSE ---
pt to CT via stretcher for stroke alert
--- NOTE | 2024-08-23 12:33 | CT_ITS ---
PROCEDURE INFORMATION: Exam: CT Head Without Contrast Exam date and time: 08/23/2024 12:40 PM Age: 38 years old Clinical indication: Stroke-like symptoms; Other: Right facial numbness/paresthesia; Additional info: Cp R facial numbness TECHNIQUE: Imaging protocol: Computed tomography of the head without contrast. Radiation optimization: All CT scans at this facility use at least one of these dose optimization techniques: automated exposure control; mA and/or kV adjustment per patient size (includes targeted exams where dose is matched to clinical indication); or iterative reconstruction. Other technique: STROKE PROTOCOL was implemented. COMPARISON: No relevant prior studies available. FINDINGS: Brain: There is no evidence of acute parenchymal hemorrhage, extra-axial collection, or acute infarction. There is no mass effect, midline shift, or downward herniation. Cerebral ventricles: No ventriculomegaly. Paranasal sinuses: Visualized sinuses are unremarkable. No fluid levels. Mastoid air cells: Visualized mastoid air cells are well aerated. Bones: Unremarkable. No acute fracture. Soft tissues: Unremarkable. IMPRESSION: No acute intracranial abnormality. ASSESSMENT: ASPECTS ([facility] Stroke Program Early CT Score) is 10.
--- NOTE | 2024-08-23 12:33 | CT_ITS ---
PROCEDURE INFORMATION: Exam: CTA Chest With Contrast Exam date and time: 08/23/2024 12:45 PM Age: 38 years old Clinical indication: Pain; Angina pectoris; Additional info: Cp TECHNIQUE: Imaging protocol: Computed tomographic angiography of the chest with contrast. Exam focused on the arteries. 3D rendering (Not supervised by radiologist): MIP and/or 3D reconstructed images were created by the technologist. Radiation optimization: All CT scans at this facility use at least one of these dose optimization techniques: automated exposure control; mA and/or kV adjustment per patient size (includes targeted exams where dose is matched to clinical indication); or iterative reconstruction. Contrast material: ISOVUE 370; Contrast volume: 80 ml; Contrast route: INTRAVENOUS (IV); COMPARISON: CR XR CHEST 2V 09/22/2023 11:58 AM FINDINGS: Pulmonary arteries: No evidence of pulmonary embolus to the segmental level. Aorta: No aneurysm of the aorta. No dissection of the aorta. Lungs: 7.9 mm pulmonary nodule in the right middle lobe (series 5, image 41).. Pleural spaces: Unremarkable. No pneumothorax. No pleural effusion. Heart: Unremarkable. No cardiomegaly. No pericardial effusion. Lymph nodes: Unremarkable. No enlarged lymph nodes. Bones/joints: Unremarkable. No acute fracture. Soft tissues: Unremarkable. IMPRESSION: 1. No evidence of pulmonary embolus to the segmental level. 2. No aneurysm of the aorta. 3. No dissection of the aorta. 4. 7.9 mm pulmonary nodule in the right middle lobe (series 5, image 41).. For patients at low risk (minimal or absent history of smoking and of other known risk factors), recommend CT Chest at 6-12 months, then consider CT Chest at 18-24 months. For patients at high risk (history of smoking or of other known risk factors), recommend CT Chest at 6-12 months, then CT Chest at 18-24 months. (Reference: Stephanie) References: Stephanie Landon, et al. Guidelines for Management of Incidental Pulmonary Nodules Detected on CT Images: From the Fleischner Society 2017. Radiology. 2017;284(1):228-243.
--- NOTE | 2024-08-23 12:33 | CT_ITS ---
PROCEDURE INFORMATION: Exam: CTA Head With Contrast, Arteriography Exam date and time: 08/23/2024 12:42 PM Age: 38 years old Clinical indication: Stroke-like symptoms; Other: Face numbness/paresthesia; Additional info: Cp numbness TECHNIQUE: Imaging protocol: Computed tomographic angiography of the head with contrast. Exam focused on the arteries. 3D rendering (Not supervised by radiologist): MIP and/or 3D reconstructed images were created by the technologist. Radiation optimization: All CT scans at this facility use at least one of these dose optimization techniques: automated exposure control; mA and/or kV adjustment per patient size (includes targeted exams where dose is matched to clinical indication); or iterative reconstruction. Contrast material: ISVOUE 370; Contrast volume: 80 ml; Contrast route: INTRAVENOUS (IV); COMPARISON: CT HEAD/BRAIN WO CON 08/23/2024 12:40 PM FINDINGS: ANTERIOR CIRCULATION: Right internal carotid artery: Intracranial segment is patent with no significant stenosis. No aneurysm. Right middle cerebral artery: No occlusion or significant stenosis. No aneurysm. Right anterior cerebral artery: No occlusion or significant stenosis. No aneurysm. Left internal carotid artery: Intracranial segment is patent with no significant stenosis. No aneurysm. Left middle cerebral artery: No occlusion or significant stenosis. No aneurysm. Left anterior cerebral artery: No occlusion or significant stenosis. No aneurysm. POSTERIOR CIRCULATION: Right vertebral artery: No occlusion or significant stenosis. No aneurysm. Left vertebral artery: No occlusion or significant stenosis. No aneurysm. Basilar artery: No occlusion or significant stenosis. No aneurysm. Right posterior cerebral artery: No occlusion or significant stenosis. No aneurysm. Left posterior cerebral artery: No occlusion or significant stenosis. No aneurysm. Brain: No definite mass, mass effect, or midline shift. Cerebral ventricles: No ventriculomegaly. Bones/joints: Unremarkable. No acute fracture. Soft tissues: Unremarkable. IMPRESSION: No large vessel stenosis or occlusion.
--- NOTE | 2024-08-23 12:35 | PC.NURSE ---
STOKE ALERT CALLED
--- NOTE | 2024-08-23 12:35 | PC.NURSE ---
stroke alert paged over head at this time
--- NOTE | 2024-08-23 12:37 | ED_ITS ---
Discharge Plan Disposition Patient Disposition: Admitted Condition: Fair Clinical Impressions Clinical Impression: Chest pain, Transient neurologic deficit Discharge ED Provider: Raymond Dalal HPI <Yeimy Plascencia APRN - Last Filed: 08/23/24 21:39> General Chief Complaint: Neuro Symptoms/Deficit Stated Complaint: chest pain Time Seen by Provider: 08/23/24 12:40 History of Present Illness HPI narrative: 38-year-old male presents to the ED via EMS with complaints of left-sided chest pain sudden onset while sitting. Patient states the left-sided chest pain radiates down his left arm. Upon arrival he asked he is having right sided facial pulling and numbness. Patient is scheduled for a stress test tomorrow with cardiology. Rates his initial chest pain as 10 out of 10. Related Data Home Medications ?Medication ?Instructions ?Recorded ?Confirmed bisoprolol fumarate 5 mg tablet 5 mg PO DAILY High blood pressure 04/09/22 08/23/24 esomeprazole magnesium 40 mg 40 mg PO DAILY 08/23/24 08/23/24 capsule,delayed release Allergies Allergy/AdvReac Type Severity Reaction Status Date / Time morphine (MORPHINE) Allergy Mild Other Verified 08/23/24 12:45 PFSH <Yeimy Plascencia APRN - Last Filed: 08/23/24 21:39> [facility] Disclaimer: The information contained in this section may have been updated after the patient was seen, as this information can be updated by other users. Medical History No significant past medical history Surgical History H/O wisdom tooth extraction History of tonsillectomy and adenoidectomy Family History Other No significant family history Social History (Updated 08/23/24 @ 15:31 by Magdalene Stone RN) Smoking Status: Never smoker second hand exposure: No alcohol intake: current alcohol intake frequency: a few times a month current occupational status: employed Travel in the last 8 weeks: None household members: spouse and children housing: house current occupational exposures/hazards: No caffeine: Yes Have you lived/traveled outside [place] in past 30 days?: No Contact w/someone who lives/traveled outside [place] past 30 days?: No Exposure to someone with infectious disease in past 14 days?: No Do you have a fever (greater than 100.4 F or 38 C)?: No Have you tested positive for COVID-19: No Exposed to someone with COVID-19 in past 14 days?: No Do you have a sore throat?: No Do you have a cough?: No Do you have any weakness?: No Are you experiencing any nausea/vomitting?: No Do you have any diarrhea?: No Are you experiencing any unusual bleeding?: No Do you have any muscle aches/pain?: No Do you have any abdominal pain?: No Are you experiencing loss of taste or smell?: No Other Medical History Have you received the Flu Vaccine for this season: No Have you received the Pneumonia Vaccine: No <Yeimy Plascencia APRN - Last Filed: 08/23/24 21:39> ROS Obtained: Yes Systems reviewed as appropriate & no additional complaints except as documented Physical Exam <Yeimy Plascencia APRN - Last Filed: 08/23/24 21:39> General General appearance: alert Head Head exam: atraumatic and other (Slight left-sided facial droop) Eye Eye exam: Present normal appearance and PERRL; Absent nystagmus ENT ENT exam: Present normal exam Neck Neck exam: Present normal inspection Chest Chest inspection: Present normal inspection and symmetric chest wall rise; Absent tenderness Respiratory Respiratory exam: Present normal lung sounds bilaterally Cardiovascular Cardiovascular exam: Present regular rate Abdominal Exam Abdominal exam: Present soft and normal bowel sounds; Absent tenderness Extremities Exam Extremities exam: Present normal inspection and full ROM Back Exam Back exam: Present normal inspection and full ROM; Absent tenderness Neurological Exam Neurological exam: Present alert and oriented X3 Expanded Neurological Exam Patient oriented to: Present person, place and time Speech: Present fluid speech Cranial nerves: Normal: EOM function (II, III, IV, ) and tongue deviation (XII) and Abnormal Left: facial palsy (VII) Motor strength - RUE: 4/5 Psychiatric Psychiatric exam: Present normal affect and normal mood Skin Skin exam: Present warm and dry HEART Score <Yeimy Plascencia APRN - Last Filed: 08/23/24 21:39> HEART Score HEART Score assessment performed?: Yes History (anamnesis): Moderately suspicious ECG: Non-specific disturbance Age: <45 years Risk factors: 3 or more risk factors Troponin: </= normal limit HEART Score: 4 <Raymond Dalal MD - Last Filed: 08/23/24 15:48> HEART Score HEART Score: 4 Critical Care <Yeimy Plascencia APRN - Last Filed: 08/23/24 21:39> Critical Care Time Critical Care Time: No <Raymond Dalal MD - Last Filed: 08/23/24 15:48> Critical Care Time Critical Care Time: Yes (neurologic) Attestation: On 08/23/24, the high probability of a clinically significant, sudden or life threatening deterioration of the following system(s) required my full and direct attention, intervention and personal management. The time I documented below is in addition to time spent performing reported procedures but includes the following listed in this critical care notation. Total Time Total Critical Care Time: 35 Medical Decision Making <Yeimy Plascencia APRN - Last Filed: 08/23/24 21:39> Medical Records Medical records reviewed: Yes I reviewed the patient's medical records. Asim Inquiry Pt receiving controlled substance: No Vital Signs Vital Signs: 08/23/24 12:35 08/23/24 12:54 08/23/24 12:56 Temperature 98.8 F Temperature Source Oral Pulse Rate 63 Pulse Rate [Left Radial] 72 Respiratory Rate 16 11 L Blood Pressure 120/79 115/78 Blood Pressure [Right Arm] 143/97 H Blood Pressure Mean 87 Blood Pressure Mean [Right Arm] 112 Blood Pressure Source [Right Arm] 02 Sat by Pulse Oximetry 95 97 Oxygen Delivery Method Room Air Room Air Room Air 08/23/24 13:00 08/23/24 13:05 08/23/24 13:06 Temperature Temperature Source Pulse Rate 70 68 67 Pulse Rate [Left Radial] Respiratory Rate 15 14 16 Blood Pressure 110/75 119/80 104/75 L Blood Pressure [Right Arm] Blood Pressure Mean Blood Pressure Mean [Right Arm] Blood Pressure Source [Right Arm] 02 Sat by Pulse Oximetry 96 98 97 Oxygen Delivery Method Room Air Room Air Room Air 08/23/24 13:30 08/23/24 14:00 08/23/24 14:20 Temperature Temperature Source Pulse Rate 56 L Pulse Rate [Left Radial] Respiratory Rate 14 8 L Blood Pressure 103/74 L 111/79 Blood Pressure [Right Arm] Blood Pressure Mean Blood Pressure Mean [Right Arm] Blood Pressure Source [Right Arm] 02 Sat by Pulse Oximetry 97 Oxygen Delivery Method Room Air Room Air 08/23/24 14:30 08/23/24 15:00 08/23/24 15:08 Temperature 97.9 F Temperature Source Oral Pulse Rate Pulse Rate [Left Radial] 54 L Respiratory Rate 17 20 Blood Pressure 108/79 L Blood Pressure [Right Arm] 114/75 Blood Pressure Mean Blood Pressure Mean [Right Arm] 88 Blood Pressure Source [Right Arm] Automatic Cuff 02 Sat by Pulse Oximetry 98 98 Oxygen Delivery Method Room Air Room Air Room Air 08/23/24 15:17 Temperature 98.0 F Temperature Source Pulse Rate 56 L Pulse Rate [Left Radial] Respiratory Rate 19 Blood Pressure 108/79 L Blood Pressure [Right Arm] Blood Pressure Mean Blood Pressure Mean [Right Arm] Blood Pressure Source [Right Arm] 02 Sat by Pulse Oximetry Oxygen Delivery Method Lab Data Labs: Lab Results 08/23/24 12:28: WBC 4.9, RBC 4.96, Hgb 14.9, Hct 42.5, MCV 85.7, MCH 30.0, MCHC 35.1, RDW 12.5, Plt Count 236, MPV 13.4 H, Neut % (Auto) 57.2, Lymph % (Auto) 32.5, [place] % (Auto) 7.3, Eos % (Auto) 2.0, Baso % (Auto) 0.8, Neut # (Auto) 2.8, Lymph # (Auto) 1.6, [place] # (Auto) 0.4, Eos # (Auto) 0.1, Baso # (Auto) 0.0, PT 9.8, INR 0.88 L, APTT 26.8, Sodium 139, Potassium 4.3, Chloride 106, Carbon Dioxide 23, Anion Gap 14.3, BUN 13, Creatinine 0.90, Estimated GFR 93, Est GFR ( Amer) 113, Glucose 111 H, Calcium 9.2, Magnesium 1.8, Total Bilirubin 0.5, AST 35, ALT 51, Alkaline Phosphatase 95, Troponin I < 0.01, Total Protein 6.7, Albumin 4.7, Globulin 2.0, Albumin/Globulin Ratio 2.4 H, HCV Ab SHEEBA w/Rflx PCR Qn Negative, HIV Ag/Ab Combo Qual Negative 08/23/24 12:28 08/23/24 12:28 Response Orders (Tests/Meds): ED MEDICATIONS Generic Name Dose Route Start Last Admin Trade Name Huong PRN Reason Stop Dose Admin Acetaminophen 650 mg 08/23/24 17:22 08/23/24 21:30 Acetaminophen 325mg Tab PO 09/22/24 17:21 650 mg Q4HP PRN Administration Fever or Mild Pain (1-3) Aspirin 81 mg 08/24/24 09:00 Aspirin Ec 81mg Tablet PO 09/23/24 08:59 DAILY BRITTANI Atorvastatin Calcium 40 mg 08/23/24 21:00 08/23/24 21:31 Atorvastatin 40mg Tablet PO 09/22/24 20:59 40 mg HS BRITTANI Administration Clopidogrel Bisulfate 75 mg 08/23/24 18:00 08/23/24 18:31 Clopidogrel 75mg Tab PO 09/22/24 17:59 75 mg DAILY BRITTANI Administration Enoxaparin Sodium 40 mg 08/24/24 09:00 Enoxaparin 40mg/0.4ml Syringe SUBCUT 09/23/24 08:59 DAILY BRITTANI Hydromorphone HCl 0.5 mg 08/23/24 16:51 08/23/24 18:31 Hydromorphone 2mg/Ml Syringe IV 09/22/24 16:50 0.5 mg Q4HP PRN Administration Moderate to Severe Pain (4-10) Ondansetron HCl 4 mg 08/23/24 17:22 Ondansetron 4mg/2ml Vial IV 09/22/24 17:21 Q6HP PRN Nausea Discontinued Medications Generic Name Dose Route Start Last Admin Trade Name Huong PRN Reason Stop Dose Admin Iopamidol 160 ml 08/23/24 12:42 08/23/24 12:44 Iopamidol-370 (76%);100ml Bottle IV 08/23/24 12:43 160 ml ONCE ONE Administration Nitroglycerin 0.4 mg 08/23/24 12:48 08/23/24 12:53 Nitroglycerin 0.4mg Sl Tablet SL 09/22/24 12:47 0.4 mg Q5MINP PRN Administration Chest Pain Nitroglycerin 1 gm 08/23/24 16:30 08/23/24 16:25 Nitroglycerin 1 Gm Ointment TD 09/22/24 16:29 1 gm Q8H BRITTANI Administration Sodium Chloride 50 ml 08/23/24 12:42 08/23/24 12:43 0.9 % Sodium Chloride 50 Ml Vial IV 08/23/24 12:43 50 ml ONCE ONE Administration Sodium Chloride 10 ml 08/23/24 12:42 08/23/24 12:43 Sodium Chloride 0.9% 10ml Syr (Rad Only) IV 08/23/24 12:43 10 ml ONCE ONE Administration ORDERS Category Date Time Status CT angio chest - dissection Stat Cat Scan 08/23/24 12:[address] angio head Stat Cat Scan 08/23/24 12:[address] angio neck Stat Cat Scan 08/23/24 12:[address] head/brain wo con Stat Cat Scan 08/23/24 12:33 Completed CXR --portable [XR chest portable] Stat Exams 08/23/24 12:29 Completed CBC w/Auto Diff [Complete Blood Count Auto Diff] Stat Lab 08/23/24 12:28 Completed CMP [Comprehensive Metabolic Panel] Stat Lab 08/23/24 12:28 Completed HIV Combo Stat Lab 08/23/24 12:28 Completed Hepatitis C Ab Qual. W/ RFX Stat Lab 08/23/24 12:28 Completed Magnesium Stat Lab 08/23/24 12:28 Completed PT/PTT Stat Lab 08/23/24 12:28 Completed Trop I [Troponin I] Stat Lab 08/23/24 12:28 Completed Troponin I Q3H Lab 08/23/24 16:05 Completed Troponin I Q3H Lab 08/23/24 18:55 Completed MDM Narrative Medical Decision Narrative: In summary, patient is a 38-year-old male PMHx HTN, HLD, unstable angina, GERD who presents to the emergency department for evaluation of chest pain / R sided facial pulling and feeling drunk . 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 Patient states the right sided facial pulling started when he arrived in the ED. EMS administered 4 ASA, 1 spray Nitro, and 50 mcg fentanyl [employer]. Pt continues to report R sided facial sensation and left sided chest pain / L arm pain. Patient is hemodynamically stable upon arrival, afebrile. Patient's physical exam unremarkable, slight left-sided droop and mild right upper extremity weakness. Differential diagnosis includes ACS, dissection, pulmonary embolism, stroke, pneumonia, pneumothorax, infectious process, electrolyte abnormality, cardiac arrhythmia, among others. Initial workup will be conducted with stroke alert CTs, chest x-ray, EKG, hematologic labs. Initial inventions include additional sublingual nitro. NIH 2. Initial EKG sinus rhythm, slight ST elevation in V2. Repeat EKG normal sinus rhythm, no ST elevation. Initial workup reviewed by me. CBC unremarkable for any leukocytosis, stable H&H. CMP unremarkable for any actionable abnormalities. First troponin < 0.01. CTA head final read unremarkable for any large vessel stenosis or occlusion. CT head final read remarkable for no acute intracranial abnormality. CTA chest final read shows no evidence of pulmonary embolism, no aneurysm of the aorta, no dissection of the aorta, is remarkable for a 7.9 mm pulmonary nodule in the right middle lobe. I had an interactive discussion with the patient about the new finding of pulmonary nodule, we discussed need for follow-up. Patient verbalized understanding. CTA neck final read shows no significant carotid or vertebral artery stenosis. I informally interpreted the chest x-ray as no acute findings. Final read of chest x-ray unremarkable for any acute findings. Upon repeat evaluation patient's pain is approximately a 1 out of 10, intermittent. He is still continuing to have right-sided facial pulling and numbness. I considered the utility of a nitroglycerin drip however patient's blood pressure remains soft so I decided to defer this at this time. Given this & the fact the patient is a high risk chest pain (heart score 4, history of angina, scheduled for stress test tomorrow), I had an interactive discussion with the patient and family who are agreeable to admission for chest pain observation at this time. Hospitalist agreeable to admission 1415. <Raymond Dalal MD - Last Filed: 08/23/24 15:48> Vital Signs Vital Signs: 08/23/24 12:35 08/23/24 12:54 08/23/24 12:56 Temperature 98.8 F Temperature Source Oral Pulse Rate 63 Pulse Rate [Left Radial] 72 Respiratory Rate 16 11 L Blood Pressure 120/79 115/78 Blood Pressure [Right Arm] 143/97 H Blood Pressure Mean 87 Blood Pressure Mean [Right Arm] 112 Blood Pressure Source [Right Arm] 02 Sat by Pulse Oximetry 95 97 Oxygen Delivery Method Room Air Room Air Room Air 08/23/24 13:00 08/23/24 13:05 08/23/24 13:06 Temperature Temperature Source Pulse Rate 70 68 67 Pulse Rate [Left Radial] Respiratory Rate 15 14 16 Blood Pressure 110/75 119/80 104/75 L Blood Pressure [Right Arm] Blood Pressure Mean Blood Pressure Mean [Right Arm] Blood Pressure Source [Right Arm] 02 Sat by Pulse Oximetry 96 98 97 Oxygen Delivery Method Room Air Room Air Room Air 08/23/24 13:30 08/23/24 14:00 08/23/24 14:20 Temperature Temperature Source Pulse Rate 56 L Pulse Rate [Left Radial] Respiratory Rate 14 8 L Blood Pressure 103/74 L 111/79 Blood Pressure [Right Arm] Blood Pressure Mean Blood Pressure Mean [Right Arm] Blood Pressure Source [Right Arm] 02 Sat by Pulse Oximetry 97 Oxygen Delivery Method Room Air Room Air 08/23/24 14:30 08/23/24 15:00 08/23/24 15:08 Temperature 97.9 F Temperature Source Oral Pulse Rate Pulse Rate [Left Radial] 54 L Respiratory Rate 17 20 Blood Pressure 108/79 L Blood Pressure [Right Arm] 114/75 Blood Pressure Mean Blood Pressure Mean [Right Arm] 88 Blood Pressure Source [Right Arm] Automatic Cuff 02 Sat by Pulse Oximetry 98 98 Oxygen Delivery Method Room Air Room Air Room Air 08/23/24 15:17 Temperature 98.0 F Temperature Source Pulse Rate 56 L Pulse Rate [Left Radial] Respiratory Rate 19 Blood Pressure 108/79 L Blood Pressure [Right Arm] Blood Pressure Mean Blood Pressure Mean [Right Arm] Blood Pressure Source [Right Arm] 02 Sat by Pulse Oximetry Oxygen Delivery Method Lab Data Labs: Lab Results 08/23/24 12:28: WBC 4.9, RBC 4.96, Hgb 14.9, Hct 42.5, MCV 85.7, MCH 30.0, MCHC 35.1, RDW 12.5, Plt Count 236, MPV 13.4 H, Neut % (Auto) 57.2, Lymph % (Auto) 32.5, [place] % (Auto) 7.3, Eos % (Auto) 2.0, Baso % (Auto) 0.8, Neut # (Auto) 2.8, Lymph # (Auto) 1.6, [place] # (Auto) 0.4, Eos # (Auto) 0.1, Baso # (Auto) 0.0, PT 9.8, INR 0.88 L, APTT 26.8, Sodium 139, Potassium 4.3, Chloride 106, Carbon Dioxide 23, Anion Gap 14.3, BUN 13, Creatinine 0.90, Estimated GFR 93, Est GFR ( Amer) 113, Glucose 111 H, Calcium 9.2, Magnesium 1.8, Total Bilirubin 0.5, AST 35, ALT 51, Alkaline Phosphatase 95, Troponin I < 0.01, Total Protein 6.7, Albumin 4.7, Globulin 2.0, Albumin/Globulin Ratio 2.4 H, HCV Ab SHEEBA w/Rflx PCR Qn Negative, HIV Ag/Ab Combo Qual Negative Response Orders (Tests/Meds): ED MEDICATIONS Generic Name Dose Route Start Last Admin Trade Name Freq PRN Reason Stop Dose Admin Acetaminophen 650 mg 08/23/24 17:22 08/23/24 21:30 Acetaminophen 325mg Tab PO 09/22/24 17:21 650 mg Q4HP PRN Administration Fever or Mild Pain (1-3) Aspirin 81 mg 08/24/24 09:00 Aspirin Ec 81mg Tablet PO 09/23/24 08:59 DAILY BRITTANI Atorvastatin Calcium 40 mg 08/23/24 21:00 08/23/24 21:31 Atorvastatin 40mg Tablet PO 09/22/24 20:59 40 mg HS BRITTANI Administration Clopidogrel Bisulfate 75 mg 08/23/24 18:00 08/23/24 18:31 Clopidogrel 75mg Tab PO 09/22/24 17:59 75 mg DAILY BRITTANI Administration Enoxaparin Sodium 40 mg 08/24/24 09:00 Enoxaparin 40mg/0.4ml Syringe SUBCUT 09/23/24 08:59 DAILY BRITTANI Hydromorphone HCl 0.5 mg 08/23/24 16:51 08/23/24 18:31 Hydromorphone 2mg/Ml Syringe IV 09/22/24 16:50 0.5 mg Q4HP PRN Administration Moderate to Severe Pain (4-10) Ondansetron HCl 4 mg 08/23/24 17:22 Ondansetron 4mg/2ml Vial IV 09/22/24 17:21 Q6HP PRN Nausea Discontinued Medications Generic Name Dose Route Start Last Admin Trade Name Freq PRN Reason Stop Dose Admin Iopamidol 160 ml 08/23/24 12:42 08/23/24 12:44 Iopamidol-370 (76%);100ml Bottle IV 08/23/24 12:43 160 ml ONCE ONE Administration Nitroglycerin 0.4 mg 08/23/24 12:48 08/23/24 12:53 Nitroglycerin 0.4mg Sl Tablet SL 09/22/24 12:47 0.4 mg Q5MINP PRN Administration Chest Pain Nitroglycerin 1 gm 08/23/24 16:30 08/23/24 16:25 Nitroglycerin 1 Gm Ointment TD 09/22/24 16:29 1 gm Q8H BRITTANI Administration Sodium Chloride 50 ml 08/23/24 12:42 08/23/24 12:43 0.9 % Sodium Chloride 50 Ml Vial IV 08/23/24 12:43 50 ml ONCE ONE Administration Sodium Chloride 10 ml 08/23/24 12:42 08/23/24 12:43 Sodium Chloride 0.9% 10ml Syr (Rad Only) IV 08/23/24 12:43 10 ml ONCE ONE Administration ORDERS Category Date Time Status CT angio chest - dissection Stat Cat Scan 08/23/24 12:[address] angio head Stat Cat Scan 08/23/24 12:[address] angio neck Stat Cat Scan 08/23/24 12:[address] head/brain wo con Stat Cat Scan 08/23/24 12:33 Completed CXR --portable [XR chest portable] Stat Exams 08/23/24 12:29 Completed CBC w/Auto Diff [Complete Blood Count Auto Diff] Stat Lab 08/23/24 12:28 Completed CMP [Comprehensive Metabolic Panel] Stat Lab 08/23/24 12:28 Completed HIV Combo Stat Lab 08/23/24 12:28 Completed Hepatitis C Ab Qual. W/ RFX Stat Lab 08/23/24 12:28 Completed Magnesium Stat Lab 08/23/24 12:28 Completed PT/PTT Stat Lab 08/23/24 12:28 Completed Trop I [Troponin I] Stat Lab 08/23/24 12:28 Completed Troponin I Q3H Lab 08/23/24 16:05 Completed Troponin I Q3H Lab 08/23/24 18:55 Completed ECG Data Tracing #1: Attestation: I reviewed this ECG and interpreted as documented below: (Sinus rhythm 64 bpm with HI 125, QRS 79, QTc 380. ST elevations in V3 with upsloping, likely secondary to some repolarization abnormality. No ischemic change or reciprocal change. Repeat EKG to be obtained.) Tracing #2: Attestation: I reviewed this ECG and interpreted as documented below: (Sinus rhythm 67 bpm with HI interval 171, QRS 90, QTc 388. Normal axis. No acute ischemic change.) MDM Narrative Medical Decision Narrative: In summary, patient is a 38-year-old male PMHx HTN, HLD, unstable angina, GERD who presents to the emergency department for evaluation of chest pain / R sided facial pulling and feeling drunk . 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 Patient states the right sided facial pulling started when he arrived in the ED. EMS administered 4 ASA, 1 spray Nitro, and 50 mcg fentanyl [employer]. Pt continues to report R sided facial sensation and left sided chest pain / L arm pain. Patient is hemodynamically stable upon arrival, afebrile. Patient's physical exam unremarkable, slight left-sided droop and mild right upper extremity weakness. Stroke alerted. Differential diagnosis includes ACS, dissection, pulmonary embolism, stroke, pneumonia, pneumothorax, infectious process, electrolyte abnormality, cardiac arrhythmia, among others. Initial workup will be conducted with stroke alert CTs, chest x-ray, EKG, hematologic labs. Initial inventions include additional sublingual nitro. NIH 2. Initial EKG sinus rhythm, slight ST elevation in V2. Repeat EKG normal sinus rhythm, no ST elevation. Initial workup reviewed by me. CBC unremarkable for any leukocytosis, stable H&H. CMP unremarkable for any actionable abnormalities. First troponin < 0.01. CTA head final read unremarkable for any large vessel stenosis or occlusion. CT head final read remarkable for no acute intracranial abnormality. CTA chest final read shows no evidence of pulmonary embolism, no aneurysm of the aorta, no dissection of the aorta, is remarkable for a 7.9 mm pulmonary nodule in the right middle lobe. I had an interactive discussion with the patient about the new finding of pulmonary nodule, we discussed need for follow-up. Patient verbalized understanding. CTA neck final read shows no significant carotid or vertebral artery stenosis. I informally interpreted the chest x-ray as no acute findings. Final read of chest x-ray unremarkable for any acute findings. Upon repeat evaluation patient's pain is approximately a 1 out of 10, intermittent. He is still continuing to have right-sided facial pulling and numbness. I considered the utility of a nitroglycerin drip however patient's blood pressure remains soft so I decided to defer this at this time. Given this & the fact the patient is a high risk chest pain (heart score 4, history of angina, scheduled for stress test tomorrow), I had an interactive discussion with the patient and family who are agreeable to admission for chest pain observation at this time. Hospitalist agreeable to admission 1415. I was consulted by the HUONG, and we discussed the complexity of the problems being addressed. I approved the treatment and management plan for this patient's care in the Emergency Department, thus performing a substantive portion of the medical decision making. Raymond Dalal MD
[2024-08-23 12:40] LABS: Basophils % 0.8 % (0.1-2.0); Eosinophils # 0.1 K/mm3 (0.0-0.4); Hematocrit 42.5 % (42.0-52.0); Hemoglobin 14.9 g/dL (14.1-18.0); Lymphocytes # 1.6 K/mm3 (0.7-4.5); Lymphocytes % 32.5 % (10-50); Mean Corpuscular HGB Conc 35.1 g/dL (31.8-35.4); Mean Corpuscular Volume 85.7 fl (80-94); Mean Platelet Volume 13.4 fl (7.4-10.4); Monocytes # 0.4 K/mm3 (0.1-1.0); Monocytes % 7.3 % (1.7-9.3); Neutrophils # 2.8 K/mm3 (1.8-7.8); Neutrophils % 57.2 % (37.0-80.0); Platelet Count 236 K/mm3 (142-424); Red Blood Count 4.96 M/mm3 (4.60-6.20); Red Cell Distribution Width 12.5 % (11.5-17.5); White Blood Count 4.9 K/mm3 (4.8-10.8)
[2024-08-23] MEDS: SODIUM CHLORIDE 0.9% 10ML SYR (RAD ONLY) 10 ML IV (12:43)
[2024-08-23] MEDS: 0.9 % SODIUM CHLORIDE 50 ML VIAL IV (12:43)
[2024-08-23 12:44] LABS: Chloride 106 mmol/L (98-107)
[2024-08-23] MEDS: IOPAMIDOL-370 (76%);100ML BOTTLE 160 ML IV (12:44)
[2024-08-23 12:45] LABS: Albumin Level 4.7 g/dl (3.5-5.0); Potassium 4.3 mmoL/L (3.5-5.1); Sodium 139 mmol/L (136-145)
[2024-08-23 12:47] LABS: Alanine Aminotransferase 51 U/L (12-78); Albumin/Globulin Ratio 2.4 (1.1-1.8); Anion Gap 14.3 mEq/L (5-15); Aspartate Amino Transferase 35 U/L (17-59); Blood Urea Nitrogen 13 mg/dl (9-20); Carbon Dioxide 23 mmol/L (22.0-30.0); Estimated Glomerular Filt Rate 93 ml/min (>60); GFR (African American) 113 ML/MIN (>60); Total Protein,Serum 6.7 g/dl (6.3-8.2)
[2024-08-23 12:48] LABS: Alkaline Phosphatase 95 U/L (38-126); Bilirubin,Total 0.5 mg/dl (0.2-1.3); Calcium 9.2 mg/dl (8.4-10.2); Glucose 111 mg/dl (74-100); Magnesium 1.8 mg/dl (1.6-2.3)
[2024-08-23] MEDS: NITROGLYCERIN 0.4MG SL TABLET 0.4 MG SL (12:53)
--- NOTE | 2024-08-23 12:53 | PC.NURSE ---
nitro given for chest pain. 1 sublingual. pain 10/10 prior to admin. pain 0/10 after 120/79 66 97 13
[2024-08-23 13:00] LABS: Troponin I < 0.01 ng/ml (0.00-0.034)
--- NOTE | 2024-08-23 13:04 | PC.NURSE ---
chest pain returned. 1 nitro sublingual given pain 10/ prior to admin pain 6/10 after 119/80 64 19 98
--- NOTE | 2024-08-23 13:05 | ECG_ITS ---
APPROVED REPORT Exam: Resting ECG HR:67 bpm ECG Measurements Heart Rate 67 AXES MN 171 P 53 QRSd 90 QRS 48 QT 372 T 41 QTc 388 Conclusion Sinus rhythm Electronically signed by : RO NGUYEN, 08/24/2024 13:19:25
[2024-08-23 13:49] LABS: Activated Partial Thrombo Time 26.8 seconds (22.5-28.5); INR 0.88 (0.9-1.1); Prothrombin Time 9.8 seconds (9.2-12.1)
--- NOTE | 2024-08-23 14:17 | PC.NURSE ---
spoke with house servant for bed placement
--- NOTE | 2024-08-23 14:38 | PC.NURSE ---
report called to lokesh on second floor
--- NOTE | 2024-08-23 14:40 | HMH.PHAINT1 ---
Pharmacy Intervention Comments: MEDICATION RECONCILIATION COMPLETE USING EXTERNAL PHARMACY FILL HISTORY.
[2024-08-23 14:44] LABS: HIV Combo NEGATIVE (Negative)
[2024-08-23 14:53] LABS: Hepatitis C Ab Qual. W/ RFX NEGATIVE (Negative)
--- NOTE | 2024-08-23 15:00 | PC.NURSE ---
pt arrived to floor by wc from er
[2024-08-23] MEDS: NITROGLYCERIN 1 GM OINTMENT TD (16:25)
[2024-08-23 17:36] LABS: Troponin I < 0.01 ng/ml (0.00-0.034)
--- NOTE | 2024-08-23 17:46 | EXP.HP ---
History of Present Illness *Admission Date: 08/23/24 *Reason for visit:: Chest pain, right face numbness *History of present illness: Milton Kim is a 38-year-old male with a history of hypertension who presents with left-sided chest pain, and right-sided facial numbness that started today. He states he was at [employer] with his family and singing when he began to have sudden onset left-sided chest pain with radiation/tingling down his left arm. Concomitantly, he also had right-sided mandibular facial numbness with no radiation. He states he started slurring his speech on the right side of his face. All the symptoms lasted for about 30 minutes, but have been on and off since this morning opting him to come to the ED. EMS gave ASA 325 mg. On arrival, patient continued to have intermittent left-sided chest pain alleviated by nitro tab. Workup in the ED significant for negative troponins, EKG without acute ischemic changes. He does state he has increased pain with tenderness to palpation, but apparently also alleviated by nitro. Denies recent straining, trauma, heavy lifting, etc. denies occurring after eating. Has had chest pains intermittently for the past couple years, and was planned to have an outpatient stress test tomorrow. Case discussed with ED provider and decision was made to admit patient for chest pain, stroke workup. [facility] Disclaimer: The information contained in this section may have been updated after the patient was seen, as this information can be updated by other users. Medical History No significant past medical history Surgical History H/O wisdom tooth extraction History of tonsillectomy and adenoidectomy Family History Other No significant family history Social History (Updated 08/23/24 @ 15:31 by Magdalene Stone RN) Smoking Status: Never smoker second hand exposure: No alcohol intake: current alcohol intake frequency: a few times a month current occupational status: employed Travel in the last 8 weeks: None household members: spouse and children housing: house current occupational exposures/hazards: No caffeine: Yes Have you lived/traveled outside [place] in past 30 days?: No Contact w/someone who lives/traveled outside [place] past 30 days?: No Exposure to someone with infectious disease in past 14 days?: No Do you have a fever (greater than 100.4 F or 38 C)?: No Have you tested positive for COVID-19: No Exposed to someone with COVID-19 in past 14 days?: No Do you have a sore throat?: No Do you have a cough?: No Do you have any weakness?: No Are you experiencing any nausea/vomitting?: No Do you have any diarrhea?: No Are you experiencing any unusual bleeding?: No Do you have any muscle aches/pain?: No Do you have any abdominal pain?: No Are you experiencing loss of taste or smell?: No Other Medical History Have you received the Flu Vaccine for this season: No Have you received the Pneumonia Vaccine: No Meds Home Medications and Allergies Home Medications ?Medication ?Instructions ?Recorded ?Confirmed ?Type bisoprolol fumarate 5 mg tablet 5 mg PO DAILY High blood pressure 04/09/22 08/23/24 History esomeprazole magnesium 40 mg 40 mg PO DAILY 08/23/24 08/23/24 History capsule,delayed release New Prescriptions to Start Prescriptions: Allergies Allergy/AdvReac Type Severity Reaction Status Date / Time morphine (MORPHINE) Allergy Mild Other Verified 08/23/24 12:45 Exam Data for Last 24 hours Vital signs and Labs for Last 24 Hours: Temp Pulse Resp BP Pulse Ox O2 Del Method 97.8 F 58 L 17 119/69 97 Room Air 08/23/24 16:00 08/23/24 16:00 08/23/24 16:00 08/23/24 16:00 08/23/24 16:00 08/23/24 17:00 Laboratory Results - last 24 hr 08/23/24 12:28: WBC 4.9, RBC 4.96, Hgb 14.9, Hct 42.5, MCV 85.7, MCH 30.0, MCHC 35.1, RDW 12.5, Plt Count 236, MPV 13.4 H, Neut % (Auto) 57.2, Lymph % (Auto) 32.5, [place] % (Auto) 7.3, Eos % (Auto) 2.0, Baso % (Auto) 0.8, Neut # (Auto) 2.8, Lymph # (Auto) 1.6, [place] # (Auto) 0.4, Eos # (Auto) 0.1, Baso # (Auto) 0.0, PT 9.8, INR 0.88 L, APTT 26.8, Sodium 139, Potassium 4.3, Chloride 106, Carbon Dioxide 23, Anion Gap 14.3, BUN 13, Creatinine 0.90, Estimated GFR 93, Est GFR ( Amer) 113, Glucose 111 H, Calcium 9.2, Magnesium 1.8, Total Bilirubin 0.5, AST 35, ALT 51, Alkaline Phosphatase 95, Troponin I < 0.01, Total Protein 6.7, Albumin 4.7, Globulin 2.0, Albumin/Globulin Ratio 2.4 H, HCV Ab SHEEBA w/Rflx PCR Qn Negative, HIV Ag/Ab Combo Qual Negative 08/23/24 16:05: Troponin I < 0.01 I & O for Last 24 hours: Intake & Output 08/20/24 08/21/24 08/22/24 08/23/24 23:59 23:59 23:59 23:59 Output Total 0 / 0 Balance 0 / 0 Weight 117.565 kg Constitutional Constitutional: no acute distress *Routine HEENT Exam Head: Present normocephalic Eye: Present EOMI and PERRL ENT: Present mucous membranes moist *Routine Neck Exam Neck: Present supple; Absent lymphadenopathy *Routine Respiratory Exam Respiratory: Present CTA bilaterally *Routine Cardiovascular Exam Cardiovascular: Present RRR *Routine Abdominal Exam Abdominal: Present soft and normoactive bowel sounds; Absent tenderness *Routine Rectal Exam Rectal:: deferred *Routine Genitalia Exam Genitalia:: deferred *Routine Extremities Exam Extremities: Absent cyanosis, clubbing or edema *Routine Skin Exam Skin: Present warm; Absent rash *Routine Neurological Exam Neurological: Present alert and oriented X3 Comments: Motor strength 4/5 right upper and lower extremity, decreased sensation of the left upper and lower extremity. Assessment and Plan *Assessment and plan (1) Chest pain: Status: Acute Category: Medical Code(s): R07.9 - Chest pain, unspecified Plan Milton Kim is a 38-year-old male with a history of hypertension who presents with left-sided chest pain, and right-sided facial numbness that started today. He states he was at [employer] with his family and singing when he began to have sudden onset left-sided chest pain with radiation/tingling down his left arm. Concomitantly, he also had right-sided mandibular facial numbness with no radiation. He states he started slurring his speech on the right side of his face. All the symptoms lasted for about 30 minutes, but have been on and off since this morning opting him to come to the ED. EMS gave ASA 325 mg. On arrival, patient continued to have intermittent left-sided chest pain alleviated by nitro tab. Workup in the ED significant for negative troponins, EKG without acute ischemic changes. He does state he has increased pain with tenderness to palpation, but apparently also alleviated by nitro. Denies recent straining, trauma, heavy lifting, etc. denies occurring after eating. Has had chest pains intermittently for the past couple years, and was planned to have an outpatient stress test tomorrow. Case discussed with ED provider and decision was made to admit patient for chest pain, stroke workup. #Chest pain #Suspected unstable angina ? Intermittent left-sided chest pain ongoing for years, not related to exertion or eating. History of hypertension, obesity. ? EKG without acute ischemic changes, troponin is negative. CTA negative for PE. ? Given negative troponins, will avoid nitro at this time to allow for permissive hypertension for suspected CVA. ? Dilaudid for chest pain. ? Aspirin 81 mg, atorvastatin 40 mg. ? Follow-up ECHO. ? Cardiology consulted, pending further recommendations. N.p.o. at midnight in case LHC is planned. #Right facial numbness #Right sided weakness, decree sensation #Suspected CVA ? Intermittent right-sided facial and mandibular numbness with no signs of weakness. Sudden onset. ? Decreased motor strength 4/5 right upper and lower extremity, decree sensation right upper and lower extremity. NIHSS score 2. ? CT, CTA head/neck unremarkable for acute findings or LVO. ? Aspirin 81 mg, Plavix 75 mg, atorvastatin 40 mg. ? Follow-up brain MRI in the morning. ? Follow-up ECHO. ? Permissive hypertension up to 220/120. #Pulmonary nodule ? CTA chest revealed 7.9 mm pulmonary nodule in the right middle lobe. Patient is a non-smoker at this time. ? Pulmonology consulted to establish care. #Hypertension ? Hold home medications for permissive hypertension as above. Full code DVT prophylaxis: Lovenox 40 mg
--- NOTE | 2024-08-23 17:55 | PC.NURSE ---
Tt admitted with chest pain and stroke like symptoms.He is alert and oriented x4. scored 2 on NIH scale. Weakness in right side extremities. Pt has c/o chest pain that radiates down left arm once since arriving to the floor, MD was made aware and pt was ordered nitro paste which relieved his pain. for BP purposes the MD Schmitt has decided to remove the nitro paste and use dilaudid instead if pt c/o anymore chest pain. NSR on tele. ambulates indepenently around room. He is tolerating meals well with no c/o nausea/vomiting. Pt will be NPO at midnight for cards consult in morning. Family is at bedside. No complaints at this time, call light in reach.
--- NOTE | 2024-08-23 18:02 | PC.NURSE ---
Pt admitted with chest pain and stroke like symptoms. He is alert and oriented x4. scored 2 on NIH scale. Weakness in right side extremities. Pt has c/o chest pain that radiates down left arm once since arriving to the floor, MD was made aware and pt was ordered nitro paste which relieved his pain. for BP purposes the MD Schmitt has decided to remove the nitro paste and use dilaudid instead if pt c/o anymore chest pain. NSR on tele. ambulates indepenently around room. He is tolerating meals well with no c/o nausea/vomiting. Pt will be NPO at midnight for cards consult in morning. Family is at bedside. No complaints at this time, call light in reach.
[2024-08-23] MEDS: HYDROMORPHONE 2MG/ML SYRINGE 0.5 MG IV ×2 (18:31→22:35)
[2024-08-23] MEDS: CLOPIDOGREL 75MG TAB 75 MG PO (18:31)
[2024-08-23 18:34] LABS: Microscopic, Urine URINE MICROSCOPIC (MICROSCOPIC)
[2024-08-23 18:36] LABS: Appearance,Urine CLEAR (Clear); Bilirubin,Urine Negative (Negative); Blood, Urine Negative (Negative); Color,Urine YELLOW (Yellow); Glucose,Urine (UA) Negative (Negative); Ketones,Urine Negative (Negative); Leukocyte Esterase,Urine Negative (Negative); Nitrate,Urine Negative (Negative); PH,Urine 6.5 (5.0-8.5); Protein,Urine Negative (Negative); Urobilinogen,Urine 0.2 EU/dl (0.2)
[2024-08-23 18:52] LABS: Amphetamine/Metha Screen,Urine Negative ng/ml (<1000); Barbiturates Screen,Urine Negative ng/ml (<200); Benzodiazepines Screen,Urine Negative ng/ml (<200); Cannabinoid Screen,Urine Negative ng/ml (<50); Cocaine Screen,Urine Negative ng/ml (<300); Methadone Screen,Urine Negative ng/ml (<300); Opiate Screen,Urine Negative ng/ml (<300); Phencyclidine Screen,Urine Negative ng/ml (<25)
[2024-08-23 19:30] LABS: Troponin I < 0.01 ng/ml (0.00-0.034)
[2024-08-23] MEDS: ACETAMINOPHEN 325MG TAB 650 MG PO (21:30)
[2024-08-23] MEDS: ATORVASTATIN 40MG TABLET 40 MG PO (21:31)
[2024-08-24] VITALS: BP 134/69; PULSE 60; PULSE 61; RESP 16; TEMP 36.5; O2SAT 97
--- NOTE | 2024-08-24 03:43 | PC.NURSE ---
Patient is alert and oriented x4. Patient's visited him yesterday evening and departed at bedtime. He was observed to have eyes closed, respirations even and unlabored on room air, and no apparent distress for the majority of the night. Patient has had complaints of left-sided pain, described as sharp and stabbing, that would radiate upwards to his chest. Dilautid was administered per SEP; patient was observed to be able to rest after receiving the pain medication. Tylenol was given once this shift as well, pending due time for Dilautid, but he stated that it did not touch his pain. Other scheduled medications were administered per SEP. He also had continued complaints of right facial numbness and weakness. He was given a chicken salad sandwich and a bag of BBQ chips for a bedtime snack; he has remained NPO since midnight. Patient ambulates independently in his room/to the bathroom without difficulties. Auscultation of his heart, bowels, and lungs were within normal findings this shift. Vital signs have remained stable. Normal sinus rhythm on telemetry. At this time, the patient is resting in bed without any other complaints. Call light within reach.
[2024-08-24 04:00] VITALS: BP 122/64; PULSE 59; PULSE 60; RESP 17; TEMP 36.9; O2SAT 98; BMI 30.5
[2024-08-24 07:06] LABS: Basophils % 0.8 % (0.1-2.0); Eosinophils # 0.2 K/mm3 (0.0-0.4); Eosinophils % 3.5 % (0.1-12.0); Hematocrit 39.8 % (42.0-52.0); Hemoglobin 13.6 g/dL (14.1-18.0); Lymphocytes # 2.1 K/mm3 (0.7-4.5); Mean Corpuscular HGB Conc 34.2 g/dL (31.8-35.4); Mean Corpuscular Hemoglobin 29.8 pg (27.0-31.2); Mean Corpuscular Volume 87.1 fl (80-94); Mean Platelet Volume 13.5 fl (7.4-10.4); Monocytes # 0.3 K/mm3 (0.1-1.0); Monocytes % 6.6 % (1.7-9.3); Neutrophils # 2.2 K/mm3 (1.8-7.8); Neutrophils % 44.9 % (37.0-80.0); Platelet Count 202 K/mm3 (142-424); Red Blood Count 4.57 M/mm3 (4.60-6.20); Red Cell Distribution Width 12.5 % (11.5-17.5); White Blood Count 4.9 K/mm3 (4.8-10.8)
[2024-08-24 07:26] LABS: Alanine Aminotransferase 38 U/L (12-78); Albumin Level 3.4 g/dl (3.5-5.0); Albumin/Globulin Ratio 1.6 (1.1-1.8); Alkaline Phosphatase 68 U/L (38-126); Anion Gap 9.9 mEq/L (5-15); Aspartate Amino Transferase 29 U/L (17-59); Bilirubin,Total 0.2 mg/dl (0.2-1.3); Blood Urea Nitrogen 12 mg/dl (9-20); Calcium 8.7 mg/dl (8.4-10.2); Carbon Dioxide 28 mmol/L (22.0-30.0); Chloride 106 mmol/L (98-107); Creatinine Clearance Estimated 167 mL/min (50-200); Estimated Glomerular Filt Rate 83 ml/min (>60); GFR (African American) 100 ML/MIN (>60); Globulin 2.1 g/dL (1.3-3.2); Glucose 97 mg/dl (74-100); Magnesium 1.9 mg/dl (1.6-2.3); Potassium 3.9 mmoL/L (3.5-5.1); Sodium 140 mmol/L (136-145); Total Protein,Serum 5.5 g/dl (6.3-8.2)
[2024-08-24 07:52] VITALS: BP 130/71; PULSE 58; RESP 18; TEMP 36.4; O2SAT 96
[2024-08-24 08:00] VITALS: PULSE 70
--- NOTE | 2024-08-24 08:06 | ECG_ITS ---
APPROVED REPORT Exam: Resting ECG HR:57 bpm ECG Measurements Heart Rate 57 AXES OK 155 P 13 QRSd 94 QRS 44 QT 389 T 32 QTc 384 Conclusion SINUS BRADYCARDIA BORDERLINE ECG UNCONFIRMED REPORT Electronically signed by : Edy Rubin MD 08/24/2024 10:16:45
[2024-08-24] MEDS: CLOPIDOGREL 75MG TAB 75 MG PO (08:13)
[2024-08-24] MEDS: ONDANSETRON 4MG/2ML VIAL 4 MG IV (08:13)
[2024-08-24] MEDS: ASPIRIN EC 81MG TABLET 81 MG PO (08:13)
[2024-08-24] MEDS: ENOXAPARIN 40MG/0.4ML SYRINGE 40 MG SUBCUT (08:13)
[2024-08-24] MEDS: HYDROMORPHONE 2MG/ML SYRINGE 0.5 MG IV (08:13)
[2024-08-24 08:30] LABS: Chol/HDL Ratio 6.6 (1-3.5); Cholesterol 152 mg/dl (140-200); HDL Cholesterol 23 mg/dl (40-60); Triglycerides 199 mg/dl (30-150); VLDL Cholesterol 40 mg/dL (0-40)
[2024-08-24 08:41] LABS: Direct LDL Cholesterol 88.33 mg/dL (100-129)
[2024-08-24 09:01] LABS: Thyroid Stimulating Hormone 1.89 uIU/mL (0.465-4.68)
[2024-08-24 09:03] LABS: Hemoglobin A1C 5.2 % (4.0-6.0)
--- NOTE | 2024-08-24 09:07 | CT_ITS ---
APPROVED REPORT Progress Developer: CLINICAL INDICATION Chest Pain TECHNIQUE Image Acquisition: A 128 slice MDCT scanner ([employer] Cellceutixa View) was used for data acquisition. A noncontrast coronary calcium scan was performed. A CT attenuation threshold of 130 Hounsfield units (HU) was used for the detection of calcium in contiguous voxels of 1 sq mm in area to be counted as individual lesions. Bolus tracking in the ascending aorta with a threshold of 180 HU was performed. Immediately afterwards, ECG synchronized cardiac CT was then performed from the cardiac base to apex using retrospective gating with ECG tube current modulation. A total of 85 mL of Isovue 370 mg/mL contrast medium was administered at 5 mL/sec followed by a saline flush using a biphasic injection protocol. A tube voltage of 120 KVp was used. The patient received the following medications prior to the cardiac CT. 0.8 mg of sublingual nitroglycerin The average heart rate at the time of acquisition was 68 bpm and regular. Image Reconstruction Transaxial images were reconstructed at 0.67 mm slide thickness. Data was reviewed interactively on an advanced workstation capable of 2 and 3-dimensional displays in all conventional reconstruction formats, including multiplanar reformations, maximum intensity projections, curved multiplanar reformations, and volume rendered reconstructions. When applicable, selected routine images describing the relevant coronary anatomy and pathology were saved and sent to PACS. Complications None Technical Quality Overall image quality was good. Coronary artery opacification was adequate. Total DLP (Dose-Length Product) is 1849.8 mGy-cm. The reported value represents the total of one or more individual components during the CT acquisition of this date and at this time, and as such, the same value may appear in more than one CT report depending on the interpreting/reporting physicians. COMPARISON None FINDINGS CT Coronary Calcium Scoring LMA (Left Main Artery) = 0 LAD (Left Anterior Descending) = 0 LCX (Left Coronary Circumflex) = 0 RCA (Right Coronary Artery) = 0 Total Calcium Score = 0 using the AJ-130 method. The interpretation of the calcium heart score is based on the following continuum*: 0 = no calcified plaque detected (risk of coronary artery disease is very low ??? less than 5%) 1-10 = calcium detected in extremely minimal levels (risk of coronary diseases is still low ??? less than 10%) 11-100 = mild levels of plaque detected with certainty (mild or minimal narrowing of heart arteries is likely) 101-400 = definite,at least moderate levels of plaque detected (relatively high risk of a heart attack within 3-5 years) >401-999 = extensive levels of plaque detected (high risk of heart attack, high levels of vascular disease are present, high likelihood of at least one significant coronary narrowing) *The calcium heart score quantifies the burden of coronary calcification/plaque in the coronary arteries. The calcium heart score is not able to evaluate the presence or burden of non-calcified (i.e. soft) plaque. There is no identifiable calcification in the aortic valve, mitral annulus or mitral valve, pericardium, or myocardium. Coronary CT Angiography The coronary arterial system is right dominant. Quantitative Stenosis Grading: Left Main (LM): The left main originates normally from the left sinus of Valsalva. The LM bifurcates into the left anterior descending artery and left circumflex artery. The LM is patent with no evidence of atherosclerosis. Left Anterior Descending (LAD) and Diagonal Branches: The LAD gives off 3 diagonal branch(es). The LAD and its branches are patent with no evidence of atherosclerosis. There is no evidence of LAD-myocardial bridge. Left Circumflex (LCX) and Obtuse Marginals (OM): The LCX gives off 2 Obtuse Marginal (OM) branch(es). The LCX and its branches are patent with no evidence of atherosclerosis. Right Coronary Artery (RCA): The RCA originates normally from the right sinus of Valsalva. The RCA gives off a posterior descending artery (PDA) and posterolateral (PL) branches. The RCA and its branches are patent with no evidence of atherosclerosis. Non-Coronary Cardiac Findings: Analysis of the left ventricular (LV) structure and function was performed after 3-D reconstruction of the LV from axial images, with user-corrected automatic contouring for assessment of LV volumes and user-defined reconstruction from oblique planes for measurement of 3-D cardiac structure and function. -The left ventricle systolic function is normal. -There is no left atrial appendage filling defect. Two right pulmonary veins and two left pulmonary veins drain normally into the left atrium. -No pericardial thickening or calcification. -Central and branch pulmonary arteries in the [id number] are unremarkable. -Thoracic aorta within the visualized thoracic aortic-branches in the [id number] is unremarkable. Extracardiac Structures No significant extra-cardiac findings. Note, however, that this study is focused on the cardiac findings. IMPRESSION -Absence of coronary calcification with an Agatston score = 0 using the AJ-130 method. -No evidence of significant flow-limiting atherosclerosis of the coronary arteries. -No evidence of myocardial bridges or coronary anomalies. -CAD-RADS 0. Management recommendations per ACC/AHA guidelines*, as clinically appropriate. *Recommendations: CAD RADS 0: Reassurance. Consider non-atherosclerotic causes of chest pain. CAD RADS 1: Consider non-atherosclerotic causes of chest pain. Consider preventive therapy and risk factor modification. CAD RADS 2: Consider non-atherosclerotic causes of chest pain. Consider preventive therapy and risk factor modification, particularly for patients with nonobstructive plaque in multiple segments. CAD RADS 3: Consider further functional testing. Consider symptom-guided anti-ischemic and preventive pharmacotherapy as well as risk factor modification per published guideline statements. CAD RADS 4A: Consider further functional testing or invasive coronary angiography with revascularization per published guideline statements. Consider symptom-guided anti-ischemic and preventive pharmacotherapy as well as risk factor modification per published guideline statements. CAD RADS 4B: Invasive coronary angiography recommended with revascularization per published guideline statements. Consider symptom-guided anti-ischemic and preventive pharmacotherapy as well as risk factor modification per published guideline statements. CAD RADS 5: Consider invasive angiography and/or viability assessment with revascularization per published guideline statements. Consider symptom-guided anti-ischemic and preventive pharmacotherapy as well as risk factor modification per published guideline statements. CRITICAL RESULT None COMMUNICATION Per this written report The coronary and cardiac findings of this CCTA were reviewed, reported, and signed by Nicola Padilla MD (Human Resources Project Coordinator) Conclusion Electronically signed by : Diana Padilla MD 08/24/2024 12:32:45
--- NOTE | 2024-08-24 09:42 | EXP.CARD.CON ---
History of Present Illness History of Present Illness Consult date: 08/24/24 Requesting physician: Guzman Schmitt Consult reason: chest pain Chief complaint: chest pain History of present illness: This is a 38-year-old gentleman who presented to the emergency department with complaints of chest pain. He has a past medical history of hypertension and hyperlipidemia. The patient states that he was at [employer] when he had sudden onset of left-sided arm pain that radiated into his chest and then into his back, up into his neck and face. The patient states that he had symptoms like this in the past where he felt a squeezing sensation in his chest that lasted for approximately a week but the symptoms were very mild. He states that he has been having the symptoms now for approximately 2 weeks off and on but they got significantly worse when he decided to come into the emergency department. 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 The patient states that the symptoms would not subside so he came to the emergency department after about 30 minutes. He was given aspirin and nitroglycerin in the emergency department which did relieve the pain. He states that they have still been occurring intermittently. He ruled out for an SC. No significant EKG changes noted. The patient does have some residual right-sided weakness. His CT of his brain was negative but he is scheduled to undergo MRI of the brain today as well. The patient had similar symptoms and did see cardiology in [place] and was supposed to have a stress test today. The patient states that he is still having chest pain intermittently but he is currently chest pain-free at the time of my examination. He states that the chest pain is associated with shortness of breath, flushing, and diaphoresis. He denies any fever, chills, nausea, vomiting, diarrhea, PND or orthopnea. [facility] Disclaimer: The information contained in this section may have been updated after the patient was seen, as this information can be updated by other users. Medical History (Updated 08/24/24 @ 11:43 by Eliecer Jaramillo MD) Nodule of right lung Transient neurologic deficit Chest pain Shortness of Breath Numbness of face Right sided weakness Hyperlipidemia Hypertension No significant past medical history Surgical History H/O wisdom tooth extraction History of tonsillectomy and adenoidectomy Family History Other No significant family history Social History (Updated 08/23/24 @ 15:31 by Magdalene Stone RN) Smoking Status: Never smoker second hand exposure: No alcohol intake: current alcohol intake frequency: a few times a month current occupational status: employed Travel in the last 8 weeks: None household members: spouse and children housing: house current occupational exposures/hazards: No caffeine: Yes Have you lived/traveled outside US in past 30 days?: No Contact w/someone who lives/traveled outside US past 30 days?: No Exposure to someone with infectious disease in past 14 days?: No Do you have a fever (greater than 100.4 F or 38 C)?: No Have you tested positive for COVID-19: No Exposed to someone with COVID-19 in past 14 days?: No Do you have a sore throat?: No Do you have a cough?: No Do you have any weakness?: No Are you experiencing any nausea/vomitting?: No Do you have any diarrhea?: No Are you experiencing any unusual bleeding?: No Do you have any muscle aches/pain?: No Do you have any abdominal pain?: No Are you experiencing loss of taste or smell?: No Review of Systems Review of Systems Review of systems:: pertinent systems reviewed and negative unless documented below Constitutional Constitutional: Reports system reviewed and no additional complaints, except as documented Eyes Eyes: Reports system reviewed and no additional complaints, except as documented ENT Ears, Nose, Mouth, and Throat: Reports system reviewed and no additional complaints, except as documented *Cardiovascular Cardiovascular: Reports system reviewed and no additional complaints, except as documented, Reports chest pain, Reports chest pain at rest, Reports chest pain with activity, Reports diaphoresis, Reports dyspnea, Reports dyspnea on exertion and Reports radiating jaw, neck or arm pain *Respiratory Respiratory: Reports system reviewed and no additional complaints, except as documented, Reports dyspnea and Reports dyspnea on exertion *Gastrointestinal Gastrointestinal: Reports system reviewed and no additional complaints, except as documented *Genitourinary Genitourinary: Reports system reviewed and no additional complaints, except as documented *Musculoskeletal Musculoskeletal: Reports system reviewed and no additional complaints, except as documented Integumentary/Breasts Skin/Breast: Reports system reviewed and no additional complaints, except as documented *Neurologic Neurologic: Reports system reviewed and no additional complaints, except as documented Psychiatric Psychiatric: Reports system reviewed and no additional complaints, except as documented Endocrine Endocrine: Reports system reviewed and no additional complaints, except as documented Hematologic/Lymphatic Hematologic/Lymphatic: Reports system reviewed and no additional complaints, except as documented Allergic/Immunologic Allergic/Immunologic: Reports system reviewed and no additional complaints, except as documented Exam Data for Last 24 hours Vital signs and Labs for Last 24 Hours: Temp Pulse Resp BP Pulse Ox O2 Del Method 97.6 F 58 L 18 130/71 96 Room Air 08/24/24 07:52 08/24/24 07:52 08/24/24 07:52 08/24/24 07:52 08/24/24 07:52 08/24/24 08:00 Laboratory Results - last 24 hr 08/23/24 12:28: WBC 4.9, RBC 4.96, Hgb 14.9, Hct 42.5, MCV 85.7, MCH 30.0, MCHC 35.1, RDW 12.5, Plt Count 236, MPV 13.4 H, Neut % (Auto) 57.2, Lymph % (Auto) 32.5, [place] % (Auto) 7.3, Eos % (Auto) 2.0, Baso % (Auto) 0.8, Neut # (Auto) 2.8, Lymph # (Auto) 1.6, [place] # (Auto) 0.4, Eos # (Auto) 0.1, Baso # (Auto) 0.0, PT 9.8, INR 0.88 L, APTT 26.8, Sodium 139, Potassium 4.3, Chloride 106, Carbon Dioxide 23, Anion Gap 14.3, BUN 13, Creatinine 0.90, Estimated GFR 93, Est GFR ( Amer) 113, Glucose 111 H, Calcium 9.2, Magnesium 1.8, Total Bilirubin 0.5, AST 35, ALT 51, Alkaline Phosphatase 95, Troponin I < 0.01, Total Protein 6.7, Albumin 4.7, Globulin 2.0, Albumin/Globulin Ratio 2.4 H, HCV Ab SHEEBA w/Rflx PCR Qn Negative, HIV Ag/Ab Combo Qual Negative 08/23/24 16:05: Troponin I < 0.01 08/23/24 18:16: Urine Color Yellow, Urine Appearance Clear, Urine pH 6.5, Ur Specific [place] 1.010, Urine Protein Negative, Urine Glucose (UA) Negative, Urine Ketones Negative, Urine Blood Negative, Urine Nitrate Negative, Urine Bilirubin Negative, Urine Urobilinogen 0.2, Ur Leukocyte Esterase Negative, Urine RBC None, Urine WBC None, Ur Squamous Epith Cells 3-5, Urine Bacteria None, Urine Opiates Screen Negative, Urine Methadone Screen Negative, Ur Barbituates Screen Negative, Ur Phencyclidine Scrn Negative, Ur Amphetamines Screen Negative, U Benzodiazepines Scrn Negative, Urine Cocaine Screen Negative, U Marijuana (THC) Screen Negative 08/23/24 18:55: Troponin I < 0.01 08/24/24 06:24: WBC 4.9, RBC 4.57 L, Hgb 13.6 L, Hct 39.8 L, MCV 87.1, MCH 29.8, MCHC 34.2, RDW 12.5, Plt Count 202, MPV 13.5 H, Neut % (Auto) 44.9, Lymph % (Auto) 44.0, [place] % (Auto) 6.6, Eos % (Auto) 3.5, Baso % (Auto) 0.8, Neut # (Auto) 2.2, Lymph # (Auto) 2.1, [place] # (Auto) 0.3, Eos # (Auto) 0.2, Baso # (Auto) 0.0, Sodium 140, Potassium 3.9, Chloride 106, Carbon Dioxide 28, Anion Gap 9.9, BUN 12, Creatinine 1.00, Estimated Creat Clear 167, Estimated GFR 83, Est GFR ( Amer) 100, Glucose 97, Hemoglobin A1c 5.2, Calcium 8.7, Magnesium 1.9, Total Bilirubin 0.2, AST 29, ALT 38 D, Alkaline Phosphatase 68, Total Protein 5.5 L, Albumin 3.4 L D, Globulin 2.1, Albumin/Globulin Ratio 1.6, Triglycerides 199 H, Cholesterol 152, LDL Cholesterol Direct 88.33 L, VLDL Cholesterol 40, HDL Cholesterol 23 L, Cholesterol/HDL Ratio 6.6 H, TSH 1.89 I & O for Last 24 hours: Intake & Output 01/31/08/22/24 08/23/24 08/24/24 23:59 23:59 23:59 23:59 Intake Total 400 / 640 240 / 240 Output Total 0 / 0 0 / 0 Balance 400 / 640 240 / 240 Weight 259 lb 3 oz 264 lb 4.8 oz Narrative: EKG is sinus rhythm with a rate of 67 bpm. Constitutional Constitutional: no acute distress and obese *Routine HEENT Exam Head: Present normocephalic and atraumatic ENT: Present mucous membranes moist *Routine Neck Exam Neck: Present supple, full ROM and normal carotid upstroke; Absent JVD, carotid bruit or lymphadenopathy *Routine Respiratory Exam Respiratory: Present CTA bilaterally, normal respiratory effort, able to speak in complete sentences and symmetric chest movement *Routine Cardiovascular Exam Cardiovascular: Present RRR, Normal S1 and Normal S2; Absent murmur or gallop *Routine Abdominal Exam Abdominal: Present soft and normoactive bowel sounds; Absent tenderness, distended or organomegaly *Routine Extremities Exam Extremities: Present full ROM, pulses intact and normal capillary refill; Absent cyanosis, clubbing or edema *Routine Skin Exam Skin: Present intact and warm; Absent erythema *Routine Neurological Exam Neurological: Present alert, oriented X3, CN II-XII intact and moving all extremities; Absent sensory deficit or motor deficit Comments: 5 out of 5 strength of the left upper and left lower extremities. 4 out of 5 strength of the right upper and right lower extremities. Routine Psychiatric Exam Psychiatric: Present normal affect Meds Home Medications and Allergies Home Medications ?Medication ?Instructions ?Recorded ?Confirmed ?Type bisoprolol fumarate 5 mg tablet 5 mg PO DAILY High blood pressure 04/09/22 08/23/24 History esomeprazole magnesium 40 mg 40 mg PO DAILY 08/23/24 08/23/24 History capsule,delayed release New Prescriptions to Start Prescriptions: Allergies Allergy/AdvReac Type Severity Reaction Status Date / Time morphine (MORPHINE) Allergy Mild Other Verified 08/23/24 12:45 Assessment and Plan *Assessment and plan (1) Chest pain: Status: Acute Qualifiers: Chest pain type: other chest pain Qualified Code(s): R07.89 - Other chest pain Category: Medical Code(s): R07.9 - Chest pain, unspecified (2) Hypertension: Status: Acute Qualifiers: Hypertension type: primary hypertension Qualified Code(s): I10 - Essential (primary) hypertension Category: Medical Code(s): I10 - Essential (primary) hypertension (3) Hyperlipidemia: Status: Acute Qualifiers: Hyperlipidemia type: mixed hyperlipidemia Qualified Code(s): E78.2 - Mixed hyperlipidemia Category: Medical Code(s): E78.5 - Hyperlipidemia, unspecified (4) Right sided weakness: Status: Acute Category: Medical Code(s): R53.1 - Weakness (5) Numbness of face: Status: Acute Category: Medical Code(s): R20.0 - Anesthesia of skin (6) Shortness of Breath: Status: Acute Category: Medical Code(s): R06.02 - Shortness of breath (7) Transient neurologic deficit: Status: Acute Category: Medical Code(s): R29.818 - Other symptoms and signs involving the nervous system Plan Plan: 1. The patient was admitted to the hospital due to chest pain and right-sided numbness. The patient has ruled out for an SC. His EKG shows no ischemic changes. He continues to have chest pain intermittently. Will plan to proceed with CCTA today to rule out ischemia due to his chest pain. The patient cannot walk on a treadmill at this time due to his right-sided weakness. Continue aspirin 81 mg daily. 2. Will obtain an echocardiogram to evaluate his LV function. 3. The patient did have right-sided numbness in his face on admission. CT of the brain showed no significant findings. However he does have some right-sided weakness on exam. He is scheduled to undergo MRI of the brain today. Will defer to the hospitalist. He has been started on Plavix 75 mg daily. 4. His blood pressure is well-controlled. He reports that he does have a history of hypertension. He does take bisoprolol at home. Continue bisoprolol. 5. His LDL goal is less than 100. His LDL is 88. The patient reports a history of hyperlipidemia which is also currently untreated. He has been started on Lipitor 40 mg p.o. nightly. 6. He does chew tobacco. Tobacco cessation is highly advised and counseled. 7. Further recommendations will be made pending the patient's response to treatment and the results of his echocardiogram and CCTA today. Thank you for the opportunity to participate in the care of this patient. All recommendations and orders are per Dr. Padilla. CCTA shows normal coronary arteries with a calcium score of 0. Chest pain is noncardiac. No further recommendations at this time from a cardiac standpoint.
--- NOTE | 2024-08-24 10:00 | EXP.PULM.CON ---
History of Present Illness History of present illness: Mr. Farooq is a 38-year-old female with reported history of hypertension presented with chest pain and facial numbness and pulmonary was called for abnormal CT scan that showed concerning pulmonary nodule. Never smoker. Admits secondhand smoke exposure for 15 to 20 years. Denies any personal history or family history of lung cancer. [facility] Disclaimer: The information contained in this section may have been updated after the patient was seen, as this information can be updated by other users. Medical History (Updated 08/24/24 @ 11:43 by Eliecer Jaramillo MD) Nodule of right lung Transient neurologic deficit Chest pain Shortness of Breath Numbness of face Right sided weakness Hyperlipidemia Hypertension No significant past medical history Surgical History H/O wisdom tooth extraction History of tonsillectomy and adenoidectomy Family History Other No significant family history Social History (Updated 08/23/24 @ 15:31 by Magdalene Stone, RN) Smoking Status: Never smoker second hand exposure: No alcohol intake: current alcohol intake frequency: a few times a month current occupational status: employed Travel in the last 8 weeks: None household members: spouse and children housing: house current occupational exposures/hazards: No caffeine: Yes Have you lived/traveled outside US in past 30 days?: No Contact w/someone who lives/traveled outside US past 30 days?: No Exposure to someone with infectious disease in past 14 days?: No Do you have a fever (greater than 100.4 F or 38 C)?: No Have you tested positive for COVID-19: No Exposed to someone with COVID-19 in past 14 days?: No Do you have a sore throat?: No Do you have a cough?: No Do you have any weakness?: No Are you experiencing any nausea/vomitting?: No Do you have any diarrhea?: No Are you experiencing any unusual bleeding?: No Do you have any muscle aches/pain?: No Do you have any abdominal pain?: No Are you experiencing loss of taste or smell?: No Review of Systems Constitutional Constitutional: Denies anorexia, Denies body ache(s) and Denies fatigue Eyes Eyes: Denies eye discharge, Denies dry eyes, Denies irritation and Denies itchy eyes ENT Ears, Nose, Mouth, and Throat: Denies epistaxis, Denies facial pain, Denies lip swelling and Denies throat swelling *Cardiovascular Cardiovascular: Reports chest pain, Denies dyspnea and Denies dyspnea on exertion *Respiratory Respiratory: Denies chest congestion, Denies cough, Denies dyspnea, Denies dyspnea on exertion, Denies excessive phlegm production and Denies wheezing *Gastrointestinal Gastrointestinal: Denies abdominal pain, Denies belching and Denies cramping *Musculoskeletal Musculoskeletal: Denies myalgias *Neurologic Neurologic: Reports system reviewed and no additional complaints, except as documented Psychiatric Psychiatric: Denies homicidal ideation and Denies suicidal ideation Endocrine Endocrine: Denies fatigue and Denies heat intolerance Hematologic/Lymphatic Hematologic/Lymphatic: Denies easy bleeding and Denies lymphadenopathy Allergic/Immunologic Allergic/Immunologic: Denies itchy eyes, Denies lip swelling, Denies throat swelling and Denies wheezing Pulmonology Exam Inpatient Vital signs and Labs for Last 24 Hours: Temp Pulse Resp BP Pulse Ox O2 Del Method 97.6 F 58 L 18 130/71 96 Room Air 08/24/24 07:52 08/24/24 07:52 08/24/24 07:52 08/24/24 07:52 08/24/24 07:52 08/24/24 08:00 Laboratory Results - last 24 hr 08/23/24 12:28: WBC 4.9, RBC 4.96, Hgb 14.9, Hct 42.5, MCV 85.7, MCH 30.0, MCHC 35.1, RDW 12.5, Plt Count 236, MPV 13.4 H, Neut % (Auto) 57.2, Lymph % (Auto) 32.5, [place] % (Auto) 7.3, Eos % (Auto) 2.0, Baso % (Auto) 0.8, Neut # (Auto) 2.8, Lymph # (Auto) 1.6, [place] # (Auto) 0.4, Eos # (Auto) 0.1, Baso # (Auto) 0.0, PT 9.8, INR 0.88 L, APTT 26.8, Sodium 139, Potassium 4.3, Chloride 106, Carbon Dioxide 23, Anion Gap 14.3, BUN 13, Creatinine 0.90, Estimated GFR 93, Est GFR ( Amer) 113, Glucose 111 H, Calcium 9.2, Magnesium 1.8, Total Bilirubin 0.5, AST 35, ALT 51, Alkaline Phosphatase 95, Troponin I < 0.01, Total Protein 6.7, Albumin 4.7, Globulin 2.0, Albumin/Globulin Ratio 2.4 H, HCV Ab SHEEBA w/Rflx PCR Qn Negative, HIV Ag/Ab Combo Qual Negative 08/23/24 16:05: Troponin I < 0.01 08/23/24 18:16: Urine Color Yellow, Urine Appearance Clear, Urine pH 6.5, Ur Specific [place] 1.010, Urine Protein Negative, Urine Glucose (UA) Negative, Urine Ketones Negative, Urine Blood Negative, Urine Nitrate Negative, Urine Bilirubin Negative, Urine Urobilinogen 0.2, Ur Leukocyte Esterase Negative, Urine RBC None, Urine WBC None, Ur Squamous Epith Cells 3-5, Urine Bacteria None, Urine Opiates Screen Negative, Urine Methadone Screen Negative, Ur Barbituates Screen Negative, Ur Phencyclidine Scrn Negative, Ur Amphetamines Screen Negative, U Benzodiazepines Scrn Negative, Urine Cocaine Screen Negative, U Marijuana (THC) Screen Negative 08/23/24 18:55: Troponin I < 0.01 08/24/24 06:24: WBC 4.9, RBC 4.57 L, Hgb 13.6 L, Hct 39.8 L, MCV 87.1, MCH 29.8, MCHC 34.2, RDW 12.5, Plt Count 202, MPV 13.5 H, Neut % (Auto) 44.9, Lymph % (Auto) 44.0, [place] % (Auto) 6.6, Eos % (Auto) 3.5, Baso % (Auto) 0.8, Neut # (Auto) 2.2, Lymph # (Auto) 2.1, [place] # (Auto) 0.3, Eos # (Auto) 0.2, Baso # (Auto) 0.0, Sodium 140, Potassium 3.9, Chloride 106, Carbon Dioxide 28, Anion Gap 9.9, BUN 12, Creatinine 1.00, Estimated Creat Clear 167, Estimated GFR 83, Est GFR ( Amer) 100, Glucose 97, Hemoglobin A1c 5.2, Calcium 8.7, Magnesium 1.9, Total Bilirubin 0.2, AST 29, ALT 38 D, Alkaline Phosphatase 68, Total Protein 5.5 L, Albumin 3.4 L D, Globulin 2.1, Albumin/Globulin Ratio 1.6, Triglycerides 199 H, Cholesterol 152, LDL Cholesterol Direct 88.33 L, VLDL Cholesterol 40, HDL Cholesterol 23 L, Cholesterol/HDL Ratio 6.6 H, TSH 1.89 I & O for Labs for Last 24 Hours: Intake & Output 08/21/24 08/22/24 08/23/24 08/24/24 23:59 23:59 23:59 23:59 Intake Total 400 / 640 240 / 240 Output Total 0 / 0 0 / 0 Balance 400 / 640 240 / 240 Weight 259 lb 3 oz 264 lb 4.8 oz Constitutional: Present mild distress Head: Present normocephalic and atraumatic ENT: Present normal exam, normal oropharynx and mucous membranes moist Neck: Present normal inspection and full ROM Respiratory: Present able to speak in complete sentences; Absent prolonged expiratory phase, rales, respiratory distress, rhonchi, wheezes, crackles or diminished air movement Cardiac: Present S1/S2, Tachycardia and radial pulses present GI: Present soft and distention; Absent tenderness or guarding Skin: Present intact; Absent cyanosis or jaundice Neuro: Present alert, awake and oriented x 3 Extremities: Present normal inspection; Absent clubbing or cyanosis Psychiatric: Present normal affect and cooperative Meds Home Medications and Allergies Home Medications ?Medication ?Instructions ?Recorded ?Confirmed ?Type bisoprolol fumarate 5 mg tablet 5 mg PO DAILY High blood pressure 04/09/22 08/23/24 History esomeprazole magnesium 40 mg 40 mg PO DAILY 08/23/24 08/23/24 History capsule,delayed release New Prescriptions to Start Prescriptions: Allergies Allergy/AdvReac Type Severity Reaction Status Date / Time morphine (MORPHINE) Allergy Mild Other Verified 08/23/24 12:45 Results Laboratory Findings 08/24/24 06:24 08/24/24 06:24 PT/INR, D-dimer PT 9.8 seconds (9.2-12.1) 08/23/24 12:28 INR 0.88 (0.9-1.1) L 08/23/24 12:28 Abnormal lab findings: Abnormal Labs 08/23/24 08/24/24 12:28 06:24 RBC 4.57 L Hgb 13.6 L Hct 39.8 L MPV 13.4 H 13.5 H INR 0.88 L Glucose 111 H Total Protein 5.5 L Albumin 3.4 L D Albumin/Globulin Ratio 2.4 H Triglycerides 199 H LDL Cholesterol Direct 88.33 L HDL Cholesterol 23 L Cholesterol/HDL Ratio 6.6 H Assessment and Plan *Assessment and plan (1) Nodule of right lung: Status: Acute Category: Medical Code(s): R91.1 - Solitary pulmonary nodule Plan Mr. Farooq is a 38-year-old female with reported history of hypertension presented with chest pain and facial numbness and pulmonary was called for abnormal CT scan that showed concerning pulmonary nodule. Never smoker. Admits secondhand smoke exposure for 15 to 20 years. Denies any personal history or family history of lung cancer. Afebrile. Hemodynamically stable. CTA upon admission no evidence of pulmonary embolism. Nonspecific right middle lobe 8 mm pulmonary nodule, this can well be from a dilated pulmonary artery. 8 mm lung nodule, low risk for lung cancer. No obvious pulmonary parenchymal etiology noted to explain patient's nonspecific chest pain Plan: Follow as an outpatient basis and consider CT chest in 6 to 12 months. # Thank you for involving pulmonary in this patient care.
[2024-08-24] MEDS: IOPAMIDOL-370 (76%);100ML BOTTLE 85 ML IV (10:29)
[2024-08-24] MEDS: 0.9 % SODIUM CHLORIDE 50 ML VIAL IV (10:29)
[2024-08-24] MEDS: SODIUM CHLORIDE 0.9% 10ML SYR (RAD ONLY) 10 ML IV (10:29)
--- NOTE | 2024-08-24 11:28 | MR_ITS ---
PROCEDURE INFORMATION: Exam: MR Head Without Contrast Exam date and time: 08/24/2024 2:41 PM Age: 38 years old Clinical indication: Stroke-like symptoms; Other: Right sided weakness weakness; Additional info: Right sided weakness, right facial numbness TECHNIQUE: Imaging protocol: Magnetic resonance imaging of the head without contrast. COMPARISON: CT ANGIO HEAD 08/23/2024 12:42 PM FINDINGS: Brain: Normal. No acute infarct. No hemorrhage. No significant white matter disease. No edema. Prominent CSF space within the sella turcica with some flattening of the pituitary gland suggestive of empty sella which is often asymptomatic. Cerebral ventricles: Normal. No ventriculomegaly. Bones: Unremarkable. Paranasal sinuses: Normal as visualized. No acute sinusitis. Mastoid air cells: Normal as visualized. No mastoid effusion. Orbital cavities: Unremarkable. Soft tissues: Unremarkable. IMPRESSION: No acute findings.
[2024-08-24 12:00] VITALS: BP 116/63; PULSE 56; PULSE 70; RESP 17; TEMP 36.9; O2SAT 98
[2024-08-24 16:00] VITALS: BP 149/92; PULSE 85; RESP 18; TEMP 36.8; O2SAT 96
--- NOTE | 2024-08-24 17:29 | EXP.DC.SUM ---
General Admission date:: 08/23/24 HPI HPI HPI: Milton Kim is a 38-year-old male with a history of hypertension who presents with left-sided chest pain, and right-sided facial numbness that started today. He states he was at [employer] with his family and singing when he began to have sudden onset left-sided chest pain with radiation/tingling down his left arm. Concomitantly, he also had right-sided mandibular facial numbness with no radiation. He states he started slurring his speech on the right side of his face. All the symptoms lasted for about 30 minutes, but have been on and off since this morning opting him to come to the ED. EMS gave ASA 325 mg. On arrival, patient continued to have intermittent left-sided chest pain alleviated by nitro tab. Workup in the ED significant for negative troponins, EKG without acute ischemic changes. He does state he has increased pain with tenderness to palpation, but apparently also alleviated by nitro. Denies recent straining, trauma, heavy lifting, etc. denies occurring after eating. Has had chest pains intermittently for the past couple years, and was planned to have an outpatient stress test tomorrow. Case discussed with ED provider and decision was made to admit patient for chest pain, stroke workup. Hospital Course Hospital Course Hospital Course: Milton Kim is a 38-year-old male with a history of hypertension who presents with left-sided chest pain, and right-sided facial numbness that started today. He states he was at [employer] with his family and singing when he began to have sudden onset left-sided chest pain with radiation/tingling down his left arm. Concomitantly, he also had right-sided mandibular facial numbness with no radiation. He states he started slurring his speech on the right side of his face. All the symptoms lasted for about 30 minutes, but have been on and off since this morning opting him to come to the ED. EMS gave ASA 325 mg. On arrival, patient continued to have intermittent left-sided chest pain alleviated by nitro tab. Workup in the ED significant for negative troponins, EKG without acute ischemic changes. He does state he has increased pain with tenderness to palpation, but apparently also alleviated by nitro. Denies recent straining, trauma, heavy lifting, etc. denies occurring after eating. Has had chest pains intermittently for the past couple years, and was planned to have an outpatient stress test tomorrow. Case discussed with ED provider and decision was made to admit patient for chest pain, stroke workup. #Chest pain ? Intermittent left-sided chest pain ongoing for years, not related to exertion or eating. History of hypertension, obesity. ? EKG without acute ischemic changes, troponin is negative. CTA negative for PE. - Cardiology consulted, CCTA showed non-flow limiting coronaries. ECHO RV mild RV dilation with borderling reduction in function. 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 - Advised NSAIDs on an as needed basis, and follow-up with PCP. #Right facial numbness #Right sided weakness, decree sensation ? Intermittent right-sided facial and mandibular numbness with no signs of weakness. Sudden onset. ? Decreased motor strength 4/5 right upper and lower extremity, decree sensation right upper and lower extremity. NIHSS score 2. ? CT, CTA head/neck, brain MRI unremarkable for acute findings or LVO. - symptoms may be from MSK strain as above. #GERD - Continue PPI. #Pulmonary nodule ? CTA chest revealed 7.9 mm pulmonary nodule in the right middle lobe. Patient is a non-smoker at this time. ? Pulmonology consulted to establish care, will follow-up outpatient for monitoring. #Hypertension ? COntinue home meds. Exam Data for Last 24 hours Vital signs and Labs for Last 24 Hours: Temp Pulse Resp BP Pulse Ox O2 Del Method 98.3 F 85 18 149/92 H 96 Room Air 08/24/24 16:00 08/24/24 16:00 08/24/24 16:00 08/24/24 16:00 08/24/24 16:00 08/24/24 16:42 Laboratory Results - last 24 hr 08/23/24 16:05: Troponin I < 0.01 08/23/24 18:16: Urine Color Yellow, Urine Appearance Clear, Urine pH 6.5, Ur Specific [place] 1.010, Urine Protein Negative, Urine Glucose (UA) Negative, Urine Ketones Negative, Urine Blood Negative, Urine Nitrate Negative, Urine Bilirubin Negative, Urine Urobilinogen 0.2, Ur Leukocyte Esterase Negative, Urine RBC None, Urine WBC None, Ur Squamous Epith Cells 3-5, Urine Bacteria None, Urine Opiates Screen Negative, Urine Methadone Screen Negative, Ur Barbituates Screen Negative, Ur Phencyclidine Scrn Negative, Ur Amphetamines Screen Negative, U Benzodiazepines Scrn Negative, Urine Cocaine Screen Negative, U Marijuana (THC) Screen Negative 08/23/24 18:55: Troponin I < 0.01 08/24/24 06:24: WBC 4.9, RBC 4.57 L, Hgb 13.6 L, Hct 39.8 L, MCV 87.1, MCH 29.8, MCHC 34.2, RDW 12.5, Plt Count 202, MPV 13.5 H, Neut % (Auto) 44.9, Lymph % (Auto) 44.0, Moore % (Auto) 6.6, Eos % (Auto) 3.5, Baso % (Auto) 0.8, Neut # (Auto) 2.2, Lymph # (Auto) 2.1, Moore # (Auto) 0.3, Eos # (Auto) 0.2, Baso # (Auto) 0.0, Sodium 140, Potassium 3.9, Chloride 106, Carbon Dioxide 28, Anion Gap 9.9, BUN 12, Creatinine 1.00, Estimated Creat Clear 167, Estimated GFR 83, Est GFR ( Amer) 100, Glucose 97, Hemoglobin A1c 5.2, Calcium 8.7, Magnesium 1.9, Total Bilirubin 0.2, AST 29, ALT 38 D, Alkaline Phosphatase 68, Total Protein 5.5 L, Albumin 3.4 L D, Globulin 2.1, Albumin/Globulin Ratio 1.6, Triglycerides 199 H, Cholesterol 152, LDL Cholesterol Direct 88.33 L, VLDL Cholesterol 40, HDL Cholesterol 23 L, Cholesterol/HDL Ratio 6.6 H, TSH 1.89 I & O for Last 24 hours: Intake & Output 08/21/24 08/22/24 08/23/24 08/24/24 23:59 23:59 23:59 23:59 Intake Total 400 / 640 240 / 240 Output Total 0 / 0 0 / 0 Balance 400 / 640 240 / 240 Weight 117.565 kg 119.884 kg Constitutional Constitutional: no acute distress and obese *Routine HEENT Exam Head: Present normocephalic Eye: Present EOMI and PERRL ENT: Present mucous membranes moist *Routine Neck Exam Neck: Present supple; Absent lymphadenopathy *Routine Respiratory Exam Respiratory: Present CTA bilaterally *Routine Cardiovascular Exam Cardiovascular: Present RRR *Routine Abdominal Exam Abdominal: Present soft and normoactive bowel sounds; Absent tenderness *Routine Extremities Exam Extremities: Absent cyanosis, clubbing or edema *Routine Skin Exam Skin: Present warm; Absent rash *Routine Neurological Exam Neurological: Present alert and oriented X3 Results Data Completed and Pending Labs on day of discharge: Labs from last 24 hours 08/24/24 08/23/24 08/23/24 06:24 18:55 18:16 WBC 4.9 RBC 4.57 L Hgb 13.6 L Hct 39.8 L MCV 87.1 MCH 29.8 MCHC 34.2 RDW 12.5 Plt Count 202 MPV 13.5 H Neut % (Auto) 44.9 Lymph % (Auto) 44.0 Moore % (Auto) 6.6 Eos % (Auto) 3.5 Baso % (Auto) 0.8 Neut # (Auto) 2.2 Lymph # (Auto) 2.1 Moore # (Auto) 0.3 Eos # (Auto) 0.2 Baso # (Auto) 0.0 Sodium 140 Potassium 3.9 Chloride 106 Carbon Dioxide 28 Anion Gap 9.9 BUN 12 Creatinine 1.00 Estimated Creat Clear 167 Estimated GFR 83 Est GFR ( Amer) 100 Glucose 97 Hemoglobin A1c 5.2 Calcium 8.7 Magnesium 1.9 Total Bilirubin 0.2 AST 29 ALT 38 D Alkaline Phosphatase 68 Troponin I < 0.01 Total Protein 5.5 L Albumin 3.4 L D Globulin 2.1 Albumin/Globulin Ratio 1.6 Triglycerides 199 H Cholesterol 152 LDL Cholesterol Direct 88.33 L VLDL Cholesterol 40 HDL Cholesterol 23 L Cholesterol/HDL Ratio 6.6 H TSH 1.89 Urine Color Yellow Urine Appearance Clear Urine pH 6.5 Ur Specific [place] 1.010 Urine Protein Negative Urine Glucose (UA) Negative Urine Ketones Negative Urine Blood Negative Urine Nitrate Negative Urine Bilirubin Negative Urine Urobilinogen 0.2 Ur Leukocyte Esterase Negative Urine RBC None Urine WBC None Ur Squamous Epith Cells 3-5 Urine Bacteria None Urine Opiates Screen Negative Urine Methadone Screen Negative Ur Barbituates Screen Negative Ur Phencyclidine Scrn Negative Ur Amphetamines Screen Negative U Benzodiazepines Scrn Negative Urine Cocaine Screen Negative U Marijuana (THC) Screen Negative 08/23/24 16:05 WBC RBC Hgb Hct MCV MCH MCHC RDW Plt Count MPV Neut % (Auto) Lymph % (Auto) Moore % (Auto) Eos % (Auto) Baso % (Auto) Neut # (Auto) Lymph # (Auto) Moore # (Auto) Eos # (Auto) Baso # (Auto) Sodium Potassium Chloride Carbon Dioxide Anion Gap BUN Creatinine Estimated Creat Clear Estimated GFR Est GFR ( Amer) Glucose Hemoglobin A1c Calcium Magnesium Total Bilirubin AST ALT Alkaline Phosphatase Troponin I < 0.01 Total Protein Albumin Globulin Albumin/Globulin Ratio Triglycerides Cholesterol LDL Cholesterol Direct VLDL Cholesterol HDL Cholesterol Cholesterol/HDL Ratio TSH Urine Color Urine Appearance Urine pH Ur Specific [place] Urine Protein Urine Glucose (UA) Urine Ketones Urine Blood Urine Nitrate Urine Bilirubin Urine Urobilinogen Ur Leukocyte Esterase Urine RBC Urine WBC Ur Squamous Epith Cells Urine Bacteria Urine Opiates Screen Urine Methadone Screen Ur Barbituates Screen Ur Phencyclidine Scrn Ur Amphetamines Screen U Benzodiazepines Scrn Urine Cocaine Screen U Marijuana (THC) Screen DS: Diagnosis Discharge Diagnosis (1) Chest pain: Status: Acute Code(s): R07.9 - Chest pain, unspecified Qualifiers: Chest pain type: other chest pain Qualified Code(s): R07.89 - Other chest pain (2) Hypertension: Status: Acute Code(s): I10 - Essential (primary) hypertension Qualifiers: Hypertension type: primary hypertension Qualified Code(s): I10 - Essential (primary) hypertension (3) Hyperlipidemia: Status: Acute Code(s): E78.5 - Hyperlipidemia, unspecified Qualifiers: Hyperlipidemia type: mixed hyperlipidemia Qualified Code(s): E78.2 - Mixed hyperlipidemia (4) Right sided weakness: Status: Acute Code(s): R53.1 - Weakness (5) Numbness of face: Status: Acute Code(s): R20.0 - Anesthesia of skin (6) Shortness of Breath: Status: Acute Code(s): R06.02 - Shortness of breath (7) Transient neurologic deficit: Status: Acute Code(s): R29.818 - Other symptoms and signs involving the nervous system Meds Home Medications and Allergies Home Medications ?Medication ?Instructions ?Recorded ?Confirmed ?Type esomeprazole magnesium 40 mg 40 mg PO DAILY 08/23/24 08/23/24 History capsule,delayed release amlodipine 5 mg tablet 5 mg PO DAILY #30 tabs 08/24/24 Rx New Prescriptions to Start Prescriptions: amlGuzman Bonilla Allergies Allergy/AdvReac Type Severity Reaction Status Date / Time morphine (MORPHINE) Allergy Mild Other Verified 08/23/24 12:45 Discharge Plan Disposition Patient Disposition: Home, Self-Care Condition: Fair Follow up Plan Follow up with: Eliecer Jaramillo MD [Physician] - Enter time for follow up Prescriptions/Medication Reconciliation: New amlodipine 5 mg tablet 5 mg PO DAILY Qty: 30 0RF Continued esomeprazole magnesium 40 mg capsule,delayed release(DR/EC) 40 mg PO DAILY Patient Comments: TAKE 1 CAPSULE BY MOUTH ONCE DAILY Discontinued bisoprolol fumarate 5 MG tablet 5 mg PO DAILY Problem Reconciliation Problems Reviewed?: Yes Patient Discharge Instructions Patient Instructions: DI for Chest Pain Print Language: Georgian Providers Primary Care Provider: Luke Villagran II Admit Provider: Guzman Schmitt Attending Provider: Guzman Schmitt
--- NOTE | 2024-08-24 17:59 | CA_ITS ---
APPROVED REPORT EXAM: Comprehensive 2D, Doppler, and color-flow Echocardiogram Cost Accountant: Grisel Pillai CRT Ht: 6 ft 6 in Wt: 259lbs BSA: 2.52 BP: 108/79 mmHg Indications: Chest Pain, ? TIA, HTN, HLD, CP, R sided facial pulling, B/S Ordered Echo Enhancing Agent Indication: Rule out Shunt Agent(s) / Amount(s) Used: Agitated Saline 5 cc Comments: B/S appears negative 2D Dimensions LA Volume 57.00 mL LA Volume Index 22.10 mL/m2 (M/F) 16-34 M-Mode Dimensions RVDd 3.08 cm (0.9-2.6) LA Diam 4.09 cm (1.9-4.0) LVDd 4.61 cm (3.5-5.7) LVDs 2.90 cm (3.5-5.7) IVSd 1.39 cm (0.6-1.1) PWd 1.00 cm (0.6-1.1) EF (Teich) 67.10% FS 37.10% EDV (Teich) 97.80 mL TAPSE 2.94 (<1.7) ESV (Teich) 32.20 mL LV Diastology E Decel Time 203 (160-240 msec) E/A Ratio 1.80 MED A' 9.60 cm/s LAT A' 7.60 cm/s Aortic Valve AO Peak GR. 4.00 mmHg Mitral Valve MV A Velocity 44.0 (40-130 cm/s) E/A Ratio 1.80 Pulmonary Valve PV Peak Velocity 169.0 (50-150 cm/s) Tricuspid Valve TR P. Velocity 221.00 cm/s RAP Estimate 10.00 mmHg RVSP 29.60 mmHg Left Ventricle The left ventricle is normal size. The left ventricular systolic function is normal. The left ventricular ejection fraction is within the normal range. There is normal left ventricular wall thickness. There is normal LV segmental wall motion. The left ventricular diastolic function is normal. LVEF is 55%. Right Ventricle Right ventricle is moderately dilated. The right ventricular systolic function is borderline hypokinetic. Atria The left atrium size is normal. The right atrium size is normal. There is no Doppler evidence of interatrial shunt. Agitated saline administration demonstrates no evidence of interatrial shunt. Aortic Valve The aortic valve opens well. There is no aortic valvular stenosis. No aortic regurgitation is present. Mitral Valve The mitral valve is normal in structure. No evidence of mitral valve stenosis. Trace mitral regurgitation. Tricuspid Valve Tricuspid valve is grossly normal in structure and function. Trace tricuspid regurgitation. There is insufficient TR jet to estimate RVSP. Pulmonic Valve The pulmonary valve is normal in structure. Trace pulmonic regurgitation. Great Vessels The aortic root is normal in size. The ascending aorta is normal in size. IVC is normal in size and collapses >50% with inspiration. Pericardium There is no pericardial effusion. Other Information Study Quality: Fair Conclusion Normal LV systolic function. Mild RV dilation with borderline reduction in RV function. No significant valvular stenosis or regurgitation. There is no Doppler evidence of interatrial shunt. Agitated saline administration demonstrates no evidence of interatrial shunt. Electronically signed by : Diana Padilla MD 08/24/2024 12:11:40
--- NOTE | 2024-08-26 11:35 | SW/DCPLANNER ---
Phoned patient x2. No answer and was able to leave a messages with patient. Austin MORAES [employer]
== END 2024-08-24 18:25 | disposition home or self-care (01) ==
LOC: ER 12:42 → 2ND 14:20
PROVIDERS: Nurse Practitioner; Admitting Provider Student in an Organized Health Care Education/Training Program; Emergency Provider Emergency Medicine; PCP Family Medicine; Visit Provider Student in an Organized Health Care Education/Training Program
DX: R07.9 Chest pain, unspecified (principal); G81.91 Hemiplegia, unspecified affecting right dominant side; R47.81 Slurred speech; E66.9 Obesity, unspecified; R91.1 Solitary pulmonary nodule; I10 Essential (primary) hypertension; K21.9 Gastro-esophageal reflux disease without esophagitis; E78.2 Mixed hyperlipidemia; F17.220 Nicotine dependence, chewing tobacco, uncomplicated; Z79.899 Other long term (current) drug therapy; Z68.30 Body mass index [BMI] 30.0-30.9, adult
CPT/HCPCS: 36415; 70450; 70496; 70498; 70551; 71045; 71275; 75574; 80053; 80061; 80307; 81001; 83036; 83735; 84443; 84484; 85025; 85610; 85730; 86803; 87389; 93005; 93306; 99291; G0378; J1171; J1650; J2405; Q9967

== ENCOUNTER 2025-06-08 01:42 | Emergency (ER) | payer BC, SELFPAY ==
--- NOTE | 2025-06-08 01:49 | XR_ITS ---
PROCEDURE INFORMATION: Exam: XR Right Foot Exam date and time: 06/08/2025 2:03 AM Age: 39 years old Clinical indication: Pain; Foot; Right; Additional info: Pain just proximal to 1st mtp TECHNIQUE: Imaging protocol: Radiologic exam of the right foot. Views: 3 or more views. COMPARISON: CR XR FOOT RT MIN 3V 05/26/2024 5:54 PM FINDINGS: Bones/joints: There is no evidence of acute fracture or dislocation. Joint spaces appear preserved. Soft tissues: No significant soft tissue edema. No subcutaneous emphysema or radiopaque foreign bodies. IMPRESSION: No acute posttraumatic osseous injury.
[2025-06-08 01:52] VITALS: BP 134/107; PULSE 96; RESP 18; TEMP 36.9; O2SAT 97; BMI 28.8
[2025-06-08 02:07] LABS: Chloride 101 mmol/L (98-107); Potassium 4.3 mmoL/L (3.5-5.1); Sodium 136 mmol/L (136-145)
[2025-06-08 02:10] LABS: Anion Gap 12.3 mEq/L (5-15); Blood Urea Nitrogen 20 mg/dl (9-20); Carbon Dioxide 27 mmol/L (22.0-30.0); Creatinine Clearance Estimated 142 mL/min (50-200); Creatinine,Serum 1.10 mg/dl (0.66-1.25); Estimated Glomerular Filt Rate 74 ml/min (>60); GFR (African American) 89 ML/MIN (>60)
[2025-06-08 02:11] LABS: Calcium 9.2 mg/dl (8.4-10.2); Glucose 119 mg/dl (74-100)
--- NOTE | 2025-06-08 02:12 | ED_ITS ---
Discharge Plan Disposition Patient Disposition: Home, Self-Care Condition: Good Prescriptions Prescriptions: New naproxen 500 mg tablet 500 mg PO BID PRN (Reason: pain) Qty: 14 0RF No Action esomeprazole magnesium 40 mg capsule,delayed release(DR/EC) 40 mg PO DAILY Patient Comments: TAKE 1 CAPSULE BY MOUTH ONCE DAILY amlodipine 5 mg tablet 5 mg PO DAILY Qty: 30 0RF Referrals Follow up/Referrals: Stefani Iraheta DPM [Staff Physician, Podiatry] - See instructions Referral Note: atrauamatic pain R foot proximal to 1st MTP plantar aspect Luke Villagran II, MD [Primary Care Provider, Medical] - See instructions Activity Restrictions/Add. Instructions Additional Instructions/Restrictions: You were evaluated in the ER and are believed to be appropriate for discharge at this time. Wear well-padded shoes. You can apply ice or heat to the bottom of the foot for up to 20 minutes at a time, do not apply directly to the skin to avoid injury. Take the prescribed naproxen as directed. DO NOT take ibuprofen, Aleve, Advil, or Motrin while taking the naproxen. It is okay to take Tylenol. Do not exceed the recommended dose on the bottle. Drink water and eat a small snack each time you take your medications. Continue taking all other home medications as previously prescribed. Follow-up with your primary care doctor for reevaluation in 2 to 3 days. Call the podiatry office and make an appointment to see Dr. Iraheta as soon as possible. Return to the ER with any new, worsening, or otherwise concerning symptoms including but not limited to fever, redness, or other signs of infection. Clinical Impressions Clinical Impression: Arch pain of right foot Print Language Print Language: Luxembourgish Discharge ED Provider: Kenyetta Mcknight General Adult HPI General Chief complaint: PAIN Stated complaint: Possible Gout Flare up; R Foot Doubled in Size Time Seen by Provider: 06/08/25 01:45 Mode of Arrival: Ambulatory Source of Information: Patient Description of Symptoms (Recalled from ER Triage Doc. by RN): patient c/o right foot pain that started saturday. Has history of gout and thinks this could be the same. Denies injury. Denies being diabetic. History of Present Illness HPI narrative: 39-year-old male presents to the ER complaining of right foot pain for the last 3 days. Patient reports a history of gout and states he gets symptoms exactly like this with gout flares. He has been on allopurinol for the last 3 months without any issues until his symptoms started Saturday. He states he has been drinking yost juice the last few days to try to help with symptoms as well as taking intermittent Tylenol and ibuprofen though he has not had any ibuprofen in the last 8 hours, no Tylenol in the last 6 hours. Patient denies any known injury. Denies any laceration or cut to the bottom of the foot. He demonstrates to the area under the first metatarsal proximal to the first MTP joint where the pain starts and states it radiates back towards the heel. He states it is worse with ambulation and better with rest. He is not a diabetic. He denies any fevers or chills. Denies IV drug use. Denies numbness, tingling, or weakness. Denies any redness or heat in the area. Patient reports slight swelling but none is appreciated on exam. I reviewed previous records which demonstrate [facility] no from May 2024 when patient had pain in the exact identical area and it was thought to be pseudogout so he was prescribed indomethacin. Related Data Home Medications ?Medication ?Instructions ?Recorded ?Confirmed esomeprazole magnesium 40 mg 40 mg PO DAILY 08/23/24 0 08/23/24 capsule,delayed release Previous Rx's ?Medication ?Instructions ?Recorded amlodipine 5 mg tablet 5 mg PO DAILY #30 tabs 08/24 naproxen 500 mg tablet 500 mg PO BID PRN pain #14 t abs 06/08/25 Allergies Allergy/AdvReac Type Severity Reaction Status Date / Time morphine (MORPHINE) Allergy Mild Other Verified 08/23/24 12:45 [facility] Disclaimer: The information contained in this section may have been updated after the patient was seen, as this information can be updated by other users. Medical History (Updated 06/08/25 @ 02:27 by Kenyetta Mcknight MD) Nodule of right lung Transient neurologic deficit Chest pain Shortness of Breath Numbness of face Right sided weakness Hyperlipidemia Hypertension No significant past medical history Surgical History H/O wisdom tooth extraction History of tonsillectomy and adenoidectomy Family History Other No significant family history Social History (Updated 08/23/24 @ 15:31 by Magdalene Stone RN) Smoking Status: Never smoker second hand exposure: No alcohol intake: current alcohol intake frequency: a few times a month current occupational status: employed Travel in the last 8 weeks?: None household members: spouse and children housing: house current occupational exposures/hazards: No caffeine: Yes Have you lived/traveled outside [place] in past 30 days?: No Contact w/someone who lives/traveled outside [place] past 30 days?: No Exposure to someone with infectious disease in past 14 days?: No Do you have a fever (greater than 100.4 F or 38 C)?: No Have you tested positive for COVID-19?: No Exposed to someone with COVID-19 in past 14 days?: No Do you have a sore throat?: No Do you have a cough?: No Do you have any weakness?: No Do you have any diarrhea?: No Are you experiencing any unusual bleeding?: No Do you have any muscle aches/pain?: Yes Do you have any abdominal pain?: No Are you experiencing loss of taste or smell?: No Other Medical History Have you received the Flu Vaccine for this season: No Have you received the Pneumonia Vaccine: No ROS Obtained: Yes Systems reviewed as appropriate & no additional complaints except as documented Per HPI Physical Exam General General appearance: alert and in no apparent distress Comment: Nontoxic-appearing Head Head exam: atraumatic and normocephalic Eye Eye exam: Present PERRL and EOMI ENT ENT exam: Present mucous membranes moist Neck Neck exam: Present normal inspection and full ROM Chest Chest inspection: Present symmetric chest wall rise Respiratory Respiratory exam: Absent respiratory distress or stridor Cardiovascular Cardiovascular exam: Present regular rate and normal rhythm Abdominal Exam Abdominal exam: Present soft; Absent distention or tenderness Extremities Exam Extremities exam: Present full ROM and tenderness; Absent edema or joint swelling Expanded Lower Extremity Exam Right: Bottom foot image: 2 1. Area of pain and tenderness, radiates posteriorly towards the heel. No associated swelling, bruising, crepitus, or erythema. No wound or fluctuance. Neurological Exam Neurological exam: Present alert and oriented X3; Absent motor sensory deficit Psychiatric Psychiatric exam: Present normal affect and normal mood Skin Skin exam: Present warm and dry Medical Decision Making Medical Records Medical records reviewed: Yes I reviewed the patient's medical records. Screening: Per USPSTF and CDC recommendations, given the prevalence of disease in our region, it is our hospital?s policy to screen for HIV and viral Hepatitis for all patients aged 18 and over and those with ongoing risk factors. Asim Inquiry Pt receiving controlled substance: No Vital Signs: 06/08/25 01:52 Temperature 98.4 F Temperature Source Oral Pulse Rate [Right] 96 H Respiratory Rate 18 Blood Pressure [Left Arm] 134/107 H Blood Pressure Mean [Left Arm] 116 Blood Pressure Source [Left Arm] Automatic Cuff Blood Pressure Position [Left Arm] Sitting 02 Sat by Pulse Oximetry 97 Oxygen Delivery Method Room Air Lab Data Lab Results 06/08/25 01:56: Sodium 136, Potassium 4.3, Chloride 101, Carbon Dioxide 27, Anion Gap 12.3, BUN 20, Creatinine 1.10, Estimated Creat Clear 142, Estimated GFR 74, Est GFR ( Amer) 89, Glucose 119 H, Calcium 9.2 06/08/25 01:56 Orders (Tests/Meds): ED MEDICATIONS Discontinued Medications Generic Name Dose Route Start Last Admin Trade Name Freq PRN Reason Stop Dose Admin Ketorolac Tromethamine 30 mg 06/08/25 02:23 Ketorolac 30mg/Ml Vial IM 06/08/25 02:24 ONCE ONE ORDERS Category Date Time Status Foot XR right minimum 3 views [XR foot RT min 3V] Stat Exams 06/08/25 01:49 Completed BMP [Basic Metabolic Panel] Stat Lab 06/08/25 01:56 Completed Medical Decision Narrative: In summary, this 39-year-old male presents to the emergency department today with pain in the right foot. On initial evaluation patient is hemodynamically stable, afebrile, ambulatory into the ER with mild limp on the right foot, exam notable for tenderness proximal to the first MTP joint on the plantar aspect with no bruising, swelling, crepitus, deformity, wound, fluctuance, heat, erythema, or other abnormality appreciated. Neurovascularly intact throughout. Full range of motion throughout. Differential includes many things, however I am most suspicious for a soft tissue injury. I have less suspicion for gout or pseudogout because patient has no redness or pain in the joint itself, there is no heat or swelling associated. He has a focal area of tenderness that radiates proximally along the tendon on the plantar aspect of the foot increasing suspicion for soft tissue injury, tendinitis, plantar fasciitis, or other injury such as this. No concern for septic arthritis since there is no involvement of the joint appreciated at this time, I considered osseous injury but again have low suspicion for this since there was not an acute traumatic injury and it has been a gradually progressive problem. BMP was ordered just to check kidney function because patient likely needs to take NSAIDs and has been taking NSAIDs. BMP reviewed by me demonstrates no acute actionable abnormality. X-ray right foot personally interpreted demonstrates no osseous injury, no foreign body, no obvious soft tissue swelling. See radiology read for final interpretation. Patient received Toradol and is stable and appropriate for discharge at this time. I prescribed naproxen for outpatient management and gave him explicit instructions on use of this medication to not take multiple NSAIDs at a time. I referred the patient to Dr. Iraheta for podiatry follow-up since he has had multiple episodes like this in the past. Patient was given instructions on symptomatic management, follow up instructions, and return precautions for the emergency department. Patient indicated understanding and was discharged in stable condition. Critical Care Critical Care Time Critical Care Time: No
[2025-06-08] MEDS: KETOROLAC 30MG/ML VIAL 30 MG IM (02:27)
[2025-06-08 02:29] VITALS: BP 138/94; PULSE 82; RESP 22; TEMP 36.9; O2SAT 95
== END 2025-06-08 02:33 | disposition home or self-care (01) ==
PROVIDERS: Emergency Provider Emergency Medicine; PCP Family Medicine
DX: M79.671 Pain in right foot (principal); E78.5 Hyperlipidemia, unspecified; I10 Essential (primary) hypertension
CPT/HCPCS: 73630; 80048; 96372; 99283; J1885